=== PATIENT | male | born 1955 | race Caucasian/White ===

== ENCOUNTER → 2019-02-25 | Outpatient (CLI) | payer OTHER ==
--- NOTE | 2019-02-25 12:13 | CT ---
EXAMINATION TYPE: CT lumbar spine wo con DATE OF EXAM: 02/25/2019 11:46 AM COMPARISON: 10/18/2010 HISTORY: Low back pain CT DLP: 1144 mGycm Automated exposure control for dose reduction was used. Unenhanced CT of the lumbar spine was performed. Bone and soft tissue window settings are submitted as well as coronal and sagittal reconstructions. There is disc space calcification T11-T12 which is included on the sagittal images only. There is multihypertrophic spurring anteriorly most marked at L4-L5. Multilevel mild degenerative dis c disease noted. Atherosclerotic change of the aorta is seen without evidence of aneurysm. L1-L2: Normal disc space height. No disc herniation protrusion or central stenosis. No facet joint arthropathy. No evidence for foraminal encroachment. L2-L3: Normal disc space height. No disc herniation protrusion or central stenosis. No facet joint arthropathy. No evidence for foraminal encroachment. L3-L4: There is diffuse disc bulging and hypertrophic change and ligamentum flavum facets. There is t o be mass effect upon the thecal sac. Mild bilateral foraminal encroachment mild canal stenosis. L4-L5: A diffuse broad-based disc protrusion with hypertrophic change of the facets and ligamentum fl avum. Diminutive spinal canal contributes to [id number] canal stenosis and mild bilateral lacey inal encroachment. L5-S1: Facet arthropathy but no obvious disc herniation. Neural foramina remain patent. Mild broad-ba sed central disc bulging but no discrete canal stenosis. Findings similar to the prior exam. IMPRESSION: 1. 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 Mild degenerative disc disease l evels L3-S1. 2. Disc bulging L3-L4 and L4-L5 with hypertrophic changes result in canal stenosis and bilateral fora albina encroachment as discussed above. Findings similar to the prior exam. Recommend MRI follow-up.
--- NOTE | 2019-02-25 13:30 | CT ---
EXAMINATION TYPE: CT brain phoebe wo con DATE OF EXAM: 02/25/2019 COMPARISON: 04/25/2010 HISTORY: 64-year-old male HORN, history of brain aneurysm, neck pain CT DLP: 1564.5 mGycm Automated exposure control for dose reduction was used. Technique: Examination of the head was done in axial plane without intravenous contrast. Coronal and sagittal reconstructions performed. CT of the cervical spine was obtained in axial plane without intravenous injection of contrast mater ial. Coronal and sagittal reformatted images were obtained from the axial views for evaluation of f ractures, spinal alignment and canal. FINDINGS: Head: Anterior left frontal approach [employer] shunt catheter with tip in the anterior aspect of the right lateral ventricle. Mild ventricular prominence is unchanged from 2009. Patchy encephalomalacia in the anterior bifrontal regions also unchanged from 2010. Partially empty s [place]. No evidence for acute intracranial hemorrhage, acute ischemic change, mass, mass effect, midline shif t, or extra-axial fluid collection. No extra-axial fluid collection. No effacement of basal subarachn oid cisterns. Singleton-white matter differentiation is maintained. Embolization material along the anterior midline falx, stable from 2009. 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 Moderat e mucosal thickening anterior ethmoid air cells. Mastoid air cells are well pneumatized. Orbits and g lobes are intact. However, there is prominent CSF along the optic nerve sheath complexes, left greate r than right. This seems to have been present back in 2009 as well. CERVICAL SPINE: Emphysematous change in the visualized upper lungs. No craniocervical junction abnormality, predental space widening, or prevertebral soft tissue swellin g. Hypertrophic facet arthropathy throughout. Alignment is maintained. No acute fracture of the cervical spine. Variable mild bilateral neuroforaminal stenoses. Sagittal and coronal reformatted images confirm above findings. COMBINED IMPRESSION: HEAD: 1. Stable left-sided [employer] shunt catheter with tip in the anterior aspect of the right lateral ventricle . Stable patchy bifrontal encephalomalacia. Stable mild ventricular prominence. No acute intracranial abnormality seen. 2. Prominent CSF fluid along the bilateral optic nerve sheath complexes. This seems to have been pres ent to some extent back in 2009 suggesting chronic change. This can also be seen in setting of increa sed intracranial pressures. Correlate with funduscopic exam to exclude any papillary edema. 3. Severe chronic left maxillary sinus disease and additional scattered chronic ethmoid sinusitis. CERVICAL SPINE: 1. Mild to moderate multilevel spondylotic change. No acute fracture or malalignment.
--- NOTE | 2019-02-25 14:22 | CT ---
EXAMINATION TYPE: CT angio head DATE OF EXAM: 02/25/2019 COMPARISON: Correlation CT brain same day HISTORY: 64-year-old male HORN, history of brain aneurysm, neck pain TECHNIQUE: Contiguous axial scanning of the head performed with IV Contrast, patient injected with 10 0 mL of Isovue 370. Coronal/sagittal MIP reconstructions performed. 3-D reconstructions generated on a dedicated independent workstation. CT DLP: 976.7 mGycm Automated exposure control for dose reduction was used. FINDINGS: The vertebral, basilar, and internal carotid arteries are patent. Some embolization coils along the junction of the A3 and A4 branches of the anterior cerebral artery. Known anterior approach left [employer] shunt catheter. No significant arterial stenosis. There is a 3 mm saccular aneurysm at the left MCA bifurcation projecting superiorly. No other aneurys mal change seen. IMPRESSION: 1. SOME EMBOLIZATION MATERIAL ALONG THE 8 3/8 FOR JUNCTION OF THE ANTERIOR CEREBRAL ARTERY. 2. 3 MM SACCULAR ANEURYSM AT THE LEFT MCA BIFURCATION PROJECTING SUPERIORLY. 3. NO ADDITIONAL ANEURYSMAL CHANGE. NO LARGE VESSEL INTRACRANIAL ARTERIAL OCCLUSION.
== END | disposition home or self-care (01) ==
LOC: RADCTMAIN 10:18
PROVIDERS: ATTEND Psychiatry & Neurology Neurology
DX: M51.36 Other intervertebral disc degeneration, lumbar region (principal); M51.86 Other intervertebral disc disorders, lumbar region; M48.061 Spinal stenosis, lumbar region without neurogenic claudication; M54.2 Cervicalgia; I67.1 Cerebral aneurysm, nonruptured; R51 Headache
CPT/HCPCS: 72125; 72131; 70496; 70450; Q9967

== ENCOUNTER 2021-04-27 12:31 | Inpatient (IN) | payer MEDICARE, OTHER ==
[~2021-04-27 12:31] MED LIST: ETOMIDATE 2 MG/ML 10 ML VIAL ONE; PROPOFOL 10 MG/ML 20 ML VIAL IV ONE; SUCCINYLCHOLINE CHLORIDE VIAL 200 MG/10 ML VIAL IV ONE
[2021-04-27] MEDS ORDERED: DEXAMETHASONE SOD PHOSPHATE 10 MG/ML 1 ML VIAL IV STA (14:19)
[2021-04-27] MEDS ORDERED: SODIUM CHLORIDE 0.9% 500 ML 500 ML IV ONE (14:19)
--- NOTE | 2021-04-27 14:20 | ED ---
General Adult HPI - General Chief complaint: Shortness of Breath Stated complaint: TAMMY Time Seen by Provider: 04/27/21 13:09 Source: patient, RN notes reviewed, old records reviewed Mode of arrival: wheelchair Limitations: no limitations - History of Present Illness Initial comments: 66-year-old male presenting for evaluation of cough, dyspnea, and nausea vomiting. He's had a poor appetite. He is not currently vaccinated against coronavirus. He is uncertain if he has come in contact with coronavirus. He also reports some constipation. No significant abdominal pain. No measured fever. He has had myalgias. - Related Data Home Medications Medication Instructions Recorded Confirmed No Known Home Medications 04/27/21 04/27/21 Allergies Allergy/AdvReac Type Severity Reaction Status Date / Time No Known Allergies Allergy Verified 04/27/21 15:12 Review of Systems ROS Statement: Those systems with pertinent positive or pertinent negative responses have been documented in the HPI. ROS Other: All systems not noted in ROS Statement are negative. Past Medical History History of Any Multi-Drug Resistant Organisms: None Reported Additional Past Surgical History / Comment(s): 1996 brain aneurysm repair Past Psychological History: No Psychological Hx Reported Smoking Status: Current every day smoker Past Alcohol Use History: Occasional Past Drug Use History: None Reported General Exam Limitations: no limitations General appearance: alert, in no apparent distress Head exam: Present: atraumatic, normocephalic Eye exam: Present: normal appearance, PERRL ENT exam: Present: mucous membranes dry Neck exam: Present: normal inspection. Absent: tenderness, meningismus Respiratory exam: Present: rhonchi, decreased breath sounds. Absent: respirat ory distress, wheezes Cardiovascular Exam: Present: regular rate, normal rhythm GI/Abdominal exam: Present: soft. Absent: distended, tenderness Extremities exam: Present: normal inspection, normal capillary refill. Absent: pedal edema, calf tenderness Neurological exam: Present: alert, oriented X3, CN II-XII intact. Absent: motor sensory deficit Psychiatric exam: Present: normal affect, normal mood Skin exam: Present: warm, dry, intact. Absent: cyanosis, diaphoretic Course Vital Signs 04/27/21 04/27/21 13:01 15:08 Temperature 97.8 F Pulse Rate 92 Respiratory 22 Rate Blood Pressure 134/87 O2 Sat by Pulse 85 L 92 L Oximetry EKG Findings - EKG Comments: EKG Findings:: EKG: Normal sinus rhythm, left axis, rate of 91, SD interval 194, QRS duration 84, QTC 462, no ST segment elevation. Medical Decision Making - Medical Decision Making 66-year-old male presenting with suspicion for coronavirus. Hypoxia, nausea vomiting. Patient does test positive for coronavirus. He is on day 7 currently. He does not need for monoclonal antibodies as he is hypoxic. Chest x-ray shows atypical pneumonia. He has a normal CBC. He's gotten acute renal failure with a creatinine of 1.8. He is given IV fluids and IV steroids. He will be admitted to Dr. Dimas with pulmonology on consultation. - Lab Data Result diagrams: 04/27/21 14:21 04/27/21 14:21 Lab Results 04/27/21 04/27/21 12 Range/Units 13:55 14:21 14:21 WBC 6.8 (3.8-10.6) k/uL RBC 5.07 (4.30-5.90) m/uL Hgb 16.2 (13.0-17.5) gm/dL Hct 46.1 (39.0-53.0) % MCV 90.9 (80.0-100.0) fL MCH 32.0 (25.0-35.0) pg MCHC 35.2 (31.0-37.0) g/dL RDW 13.0 (11.5-15.5) % Plt Count 281 (150-450) k/uL MPV 9.1 Neutrophils % 80 % Lymphocytes % 9 % Monocytes % 7 % Eosinophils % 0 % Basophils % 1 % Neutrophils # 5.5 (1.3-7.7) k/uL Lymphocytes # 0.6 L (1.0-4.8) k/uL Monocytes # 0.5 (0-1.0) k/uL Eosinophils # 0.0 (0-0.7) k/uL Basophils # 0.0 (0-0.2) k/uL PT 10.8 (9.0-12.0) sec INR 1.0 (<1.2) APTT 23.6 (22.0-30.0) sec Sodium (137-145) mmol/L Potassium (3.5-5.1) mmol/L Chloride (98-107) mmol/L Carbon Dioxide (22-30) mmol/L Anion Gap mmol/L BUN (9-20) mg/dL Creatinine (0.66-1.25) mg/dL Est GFR (CKD-EPI)AfAm (>60 ml/min/1.73 sqM) Est GFR (CKD-EPI)NonAf (>60 ml/min/1.73 sqM) Glucose (74-99) mg/dL Plasma Lactic Acid Koffi (0.7-2.0) mmol/L Calcium (8.4-10.2) mg/dL Total Bilirubin (0.2-1.3) mg/dL AST (17-59) U/L ALT (4-49) U/L Alkaline Phosphatase (38-126) U/L Troponin I (0.000-0.034) ng/mL NT-Pro-B Natriuret Pep pg/mL Total Protein (6.3-8.2) g/dL Albumin (3.5-5.0) g/dL Coronavirus (PCR) Detected A (Not Detectd) 04/27/21 04/27/21 04/27/21 Range/Units 14:21 14:21 14:21 WBC (3.8-10.6) k/uL RBC (4.30-5.90) m/uL Hgb (13.0-17.5) gm/dL Hct (39.0-53.0) % MCV (80.0-100.0) fL MCH (25.0-35.0) pg MCHC (31.0-37.0) g/dL RDW (11.5-15.5) % Plt Count (150-450) k/uL MPV Neutrophils % % Lymphocytes % % Monocytes % % Eosinophils % % Basophils % % Neutrophils # (1.3-7.7) k/uL Lymphocytes # (1.0-4.8) k/uL Monocytes # (0-1.0) k/uL Eosinophils # (0-0.7) k/uL Basophils # (0-0.2) k/uL PT (9.0-12.0) sec INR (<1.2) APTT (22.0-30.0) sec Sodium 133 L (137-145) mmol/L Potassium 3.6 (3.5-5.1) mmol/L Chloride 100 (98-107) mmol/L Carbon Dioxide 21 L (22-30) mmol/L Anion Gap 12 mmol/L BUN 56 H (9-20) mg/dL Creatinine 1.81 H (0.66-1.25) mg/dL Est GFR (CKD-EPI)AfAm 44 (>60 ml/min/1.73 sqM) Est GFR (CKD-EPI)NonAf 38 (>60 ml/min/1.73 sqM) Glucose 108 H (74-99) mg/dL Plasma Lactic Acid Koffi 1.8 (0.7-2.0) mmol/L Calcium 8.6 (8.4-10.2) mg/dL Total Bilirubin 0.7 (0.2-1.3) mg/dL AST 129 H (17-59) U/L ALT 62 H (4-49) U/L Alkaline Phosphatase 101 (38-126) U/L Troponin I <0.012 (0.000-0.034) ng/mL NT-Pro-B Natriuret Pep pg/mL Total Protein 8.6 H (6.3-8.2) g/dL Albumin 3.9 (3.5-5.0) g/dL Coronavirus (PCR) (Not Detectd) 04/27/21 Range/Units 14:21 WBC (3.8-10.6) k/uL RBC (4.30-5.90) m/uL Hgb (13.0-17.5) gm/dL Hct (39.0-53.0) % MCV (80.0-100.0) fL MCH (25.0-35.0) pg MCHC (31.0-37.0) g/dL RDW (11.5-15.5) % Plt Count (150-450) k/uL MPV Neutrophils % % Lymphocytes % % Monocytes % % Eosinophils % % Basophils % % Neutrophils # (1.3-7.7) k/uL Lymphocytes # (1.0-4.8) k/uL Monocytes # (0-1.0) k/uL Eosinophils # (0-0.7) k/uL Basophils # (0-0.2) k/uL PT (9.0-12.0) sec INR (<1.2) APTT (22.0-30.0) sec Sodium (137-145) mmol/L Potassium (3.5-5.1) mmol/L Chloride (98-107) mmol/L Carbon Dioxide (22-30) mmol/L Anion Gap mmol/L BUN (9-20) mg/dL Creatinine (0.66-1.25) mg/dL Est GFR (CKD-EPI)AfAm (>60 ml/min/1.73 sqM) Est GFR (CKD-EPI)NonAf (>60 ml/min/1.73 sqM) Glucose (74-99) mg/dL Plasma Lactic Acid Koffi (0.7-2.0) mmol/L Calcium (8.4-10.2) mg/dL Total Bilirubin (0.2-1.3) mg/dL AST (17-59) U/L ALT (4-49) U/L Alkaline Phosphatase (38-126) U/L Troponin I (0.000-0.034) ng/mL NT-Pro-B Natriuret Pep 208 pg/mL Total Protein (6.3-8.2) g/dL Albumin (3.5-5.0) g/dL Coronavirus (PCR) (Not Detectd) Disposition Clinical Impression: COVID-19, Hypoxia, LILY (acute kidney injury) Disposition: ADMITTED IP TO THIS [facility] Condition: Stable Is patient prescribed a controlled substance at d/c from ED?: No Referrals: Dmitriy David MD [Primary Care Provider] - 1-2 days Decision to Admit Reason: Admit from EC Decision Date: 04/27/21 Decision Time: 15:44
--- NOTE | 2021-04-27 14:39 | XR ---
EXAMINATION TYPE: XR chest 1V portable DATE OF EXAM: 04/27/2021 COMPARISON: 04/19/2012 INDICATION: Difficulty in breathing, Covid TECHNIQUE: Single frontal view of the chest is obtained. FINDINGS: The heart size is upper limits of normal. The pulmonary vasculature is diffuse mild increased lung markings are present bilaterally. Findings a re nonspecific but can be compatible with atypical pneumonia. Previous right lower lobe infiltrate ma y have some mild improvement.. IMPRESSION: 1. Improving right lower lobe pneumonia. 2. Diffuse increased lung markings are developing bilaterally. Correlate for atypical pneumonia.
[2021-04-27 14:41] LABS: Basophils % (A) 1 %; Eosinophils % (A) 0 %; HCT 46.1 % (39.0-53.0); HGB 16.2 gm/dL (13.0-17.5); Lymphocytes # (A) 0.6 k/uL (1.0-4.8); Lymphocytes % (A) 9 %; MCHC 35.2 g/dL (31.0-37.0); MCV 90.9 fL (80.0-100.0); Mean Platelet Volume 9.1; Monocytes # (A) 0.5 k/uL (0-1.0); Monocytes % (A) 7 %; Neutrophils # (A) 5.5 k/uL (1.3-7.7); Neutrophils % (A) 80 %; Platelet Count 281 k/uL (150-450); RBC 5.07 m/uL (4.30-5.90); WBC 6.8 k/uL (3.8-10.6)
[2021-04-27] MEDS ORDERED: ONDANSETRON 4 MG/2 ML VIAL IVP STA (14:48)
[2021-04-27 14:54] LABS: Albumin 3.9 g/dL (3.5-5.0); Calcium 8.6 mg/dL (8.4-10.2); Potassium 3.6 mmol/L (3.5-5.1); Total Bilirubin 0.7 mg/dL (0.2-1.3); Total Protein 8.6 g/dL (6.3-8.2)
[2021-04-27 15:12] LABS: Partial Thromboplastin Time 23.6 sec (22.0-30.0); Prothrombin Time 10.8 sec (9.0-12.0)
[2021-04-27] MEDS ORDERED: ACETAMINOPHEN TAB 325 MG TAB PO PRN (15:44)
[2021-04-27] MEDS ORDERED: NALOXONE 0.4 MG/ML 1 ML VIAL IV PRN (15:44)
[2021-04-27] MEDS ORDERED: ONDANSETRON 4 MG/2 ML VIAL IVP PRN (15:44)
[2021-04-27] MEDS: SODIUM CHLORIDE 0.9% 1,000 ML IV SCH (17:31)
[2021-04-27 17:39] LABS: C Reactive Protein 4.9 mg/dL (<1.0)
--- NOTE | 2021-04-27 17:50 | P.CNPUL ---
History of Present Illness Consult date: 04/27/21 Reason for consult: dyspnea, hypoxemia, pneumonia History of present illness: 66-year-old male patient presented to the hospital because of increased cough and shortness of breath in addition to some nausea and emesis. The patient was quite dehydrated. His appetite was poor. He was confirmed having a COVID 19 infection. The patient has been symptomatic over almost 2 weeks. This patient is not vaccinated. No reported fever. He has generalized weakness and myalgias. In the burst department, the patient was afebrile. Pulse ox initial ly was 85%. Currently he is on oxygen at 4 L per minute nasal cannula. The chest x-ray shows diffuse increased interstitial markings bilaterally consistent with pneumonia. The pulmonary vasculature is quite abundant. The patient also has a right lower lobe pulmonary infiltrate in the past that has improved on this current evaluation. A BUN of 56 with a creatinine of 1.8 consistent with an acute kidney injury, sodium level was 133, there was evidence of mild transaminitis with an AST of 129, ALT of 62, Review of Systems Constitutional: Reports as per HPI, Reports weakness Eyes: denies as per HPI, denies blurred vision, denies bulging eye, denies decreased vision, denies diplopia, denies discharge, denies dry eye, denies irritation, denies itching, denies pain, denies photophobia, denies loss of peripheral vision, denies loss of vision, denies tunnel vision/blind spots Ears: deny: decreased hearing, ear discharge, earache, tinnitus Ears, nose, mouth and throat: Reports as per HPI Cardiovascular: Reports dyspnea on exertion Respiratory: Reports cough, Reports dyspnea Gastrointestinal: Reports nausea, Reports vomiting Genitourinary: Reports as per HPI Musculoskeletal: Reports as per HPI Musculoskeletal: absent: ankle pain, ankle stiffness, ankle swelling, as per HPI, elbow pain, elbow stiffness, elbow swelling, foot pain, foot stiffness, foot swelling, hand pain, hand stiffness, hand swelling, hip pain, hip s tiffness, hip swelling, knee pain, knee stiffness, knee swelling, shoulder pain, shoulder stiffness, shoulder swelling, wrist pain, wrist stiffness, wrist swelling Integumentary: Reports as per HPI Neurological: Reports as per HPI Psychiatric: Reports as per HPI Endocrine: Reports as per HPI Hematologic/Lymphatic: Reports as per HPI Allergic/Immunologic: Reports as per HPI Past Medical History History of Any Multi-Drug Resistant Organisms: None Reported Additional Past Surgical History / Comment(s): 1996 brain aneurysm repair Past Psychological History: No Psychological Hx Reported Smoking Status: Current every day smoker Past Alcohol Use History: Occasional Past Drug Use History: None Reported Medications and Allergies Home Medications Medication Instructions Recorded Confirmed Type No Known Home Medications 04/27/21 04/27/21 History Allergies Allergy/AdvReac Type Severity Reaction Status Date / Time No Known Allergies Allergy Verified 04/27/21 15:12 Physical Exam Vitals: Vital Signs Temp Pulse Resp BP Pulse Ox 04/27/21 15:08 92 L 04/27/21 13:01 97.8 F 92 22 134/87 85 L Intake and Output 04/27/21 04/27/21 04/27/21 06:59 14:59 22:59 Other: Weight 77.111 kg General appearance: alert, in no apparent distress, breathing is nonlabored the patient is currently on 4 L about 2 by nasal cannula with a pulse of 92%, earlier, room air oxygen, the pulse ox was 83%. Head exam: Present: atraumatic, normocephalic Eye exam: Present: normal appearance, PERRL ENT exam: Present: mucous membranes dry Neck exam: Present: normal inspection. Absent: tenderness, meningismus Respiratory exam: Present: rhonchi, decreased breath sounds. And the patient has bilateral lower lobe pulmonary crackles. Cardiovascular Exam: Present: regular rate, normal rhythm GI/Abdominal exam: Present: soft. Absent: distended, tenderness Extremities exam: Present: normal inspection, normal capillary refill. Absent: pedal edema, calf tenderness Neurological exam: Present: alert, oriented X3, CN II-XII intact. Absent: motor sensory deficit Psychiatric exam: Present: normal affect, normal mood Skin exam: Present: warm, dry, intact. Absent: cyanosis, diaphoretic Results - Laboratory Findings CBC and BMP: 04/27/21 14:21 04/27/21 14:21 PT/INR, D-dimer PT 10.8 sec (9.0-12.0) 04/27/21 14:21 INR 1.0 (<1.2) 04/27/21 14:21 Abnormal lab findings: Abnormal Labs 04/27/21 04/27/21 04/27/21 13:55 14:21 14:21 Lymphocytes # 0.6 L Sodium 133 L Carbon Dioxide 21 L BUN 56 H Creatinine 1.81 H Glucose 108 H AST 129 H ALT 62 H Total Protein 8.6 H Coronavirus (PCR) Detected A - Diagnostic Findings Chest x-ray: image reviewed Assessment and Plan Plan: 1 acute COVID 19 related pneumonia. This is a nonvaccinated individual. The patient presented with increased shortness of breath and cough and the patient was found to be quite hypoxic confirmed to be positive for COVID 19 2 acute hypoxic respiratory failure secondary to well currently on 40 to about 2 by nasal cannula 3 acute kidney injury probably rates to intravascular volume depletion/dehydration, creatinine is at 1.8 4 mild transaminitis secondary to COVID 19 infection Plan Titrate FiO2 to maintain saturation above 90% currently on 4 L of oxygen nasal cannula Check inflammatory markers Check d-dimer is 1.04 Continue Decadron Outside the window for Remdesivir treatment Put the patient on Lovenox 40 mg subcu for DVT prophylaxis Normal saline at the rate of 100 mL an hour Monitor renal function Multivitamins including vitamin C vitamin D and zinc We'll continue to follow.
--- NOTE | 2021-04-27 22:31 | P.HPIM ---
History of Present Illness H&P Date: 04/27/21 Chief Complaint: Generalized weakness. Patient is a 66-year-old male with a known history of ongoing nicotine addiction presents to ER with complaints of generalized weakness, nausea vomiting and shortness of. Patient states that he has been having poor appetite and symptoms for the past 2 weeks. Patient felt very weak. Pressure points were COVID-19 infection. Patient is not vaccinated. Denies any complaints of fever or chills. No complaints of chest pain. Minimal cough without any sputum production. On admission pulse ox 85% on room air. Chest x-ray showed improving right lower lobe pneumonia. Diffuse increased lung markings are developing bilaterally. Correlate for atypical pneumonia. EKG showed normal sinus rhythm. Laboratory showed lymphocyte 0.6 WBC 6.8 hemoglobin 16.2 and platelets 281 and D-dimer level is 1.04 Sodium 133 potassium 3.6 chloride 100 bicarb is 21 BUN 56 and creatinine 1.81 Blood sugar is 108 AST 129 ALT 62 alk phos 101 LDH 05/30/2004 CRP 4.9 and proBNP 208 Coronavirus PCR detected. Review of Systems Constitutional: Patient denies any fever or chills . Patient does complain of generalized weakness and fatigue. Abdomen: Shortness of breath. Patient does have nausea vomiting. No abdominal pain. No diarrhea. . Cardiovascular: Patient denies any chest pain +short of breath no palpitations. Respiratory: Complains of cough without any sputum production. shortness of breath Neurologic: Patient denied any numbness or tingling headache. Musculoskeletal: Patient denies any complaints of joint swelling or deformity. Skin: Negative Psychiatric: Negative Endocrine: No heat or cold intolerance. No recent weight gain. Genitourinary: No dysuria or hematuria. All other 14 point ROS negative except the above Past Medical History History of Any Multi-Drug Resistant Organisms: None Reported Additional Past Surgical History / Comment(s): 1996 brain aneurysm repair Past Psychological History: No Psychological Hx Reported Smoking Status: Current every day smoker Past Alcohol Use History: Occasional Past Drug Use History: None Reported Medications and Allergies Home Medications Medication Instructions Recorded Confirmed Type No Known Home Medications 04/27/21 04/27/21 History Allergies Allergy/AdvReac Type Severity Reaction Status Date / Time No Known Allergies Allergy Verified 04/27/21 15:12 Physical Exam Vitals: Vital Signs Temp Pulse Pulse Resp BP BP Pulse Ox 04/27/21 20:00 85 18 134/77 90 L 04/27/21 18:41 77 20 129/82 97 04/27/21 16:30 97.4 F L 85 18 132/65 95 04/27/21 15:08 92 L 04/27/21 13:01 97.8 F 92 22 134/87 85 L Intake and Output 04/27/21 04/27/21 04/27/21 06:59 14:59 22:59 Other: Weight 77.111 kg 77.111 kg PHYSICAL EXAMINATION: Patient is lying in the bed comfortably, no acute distress, awake alert and oriented. appears weak. HEENT: Normocephalic. Neck is supple. Pupils reactive. Nostrils clear. Oral cavity is moist. Neck reveals no JVD, carotid bruits, or thyromegaly. CHEST EXAMINATION: Trachea is central. Symmetrical expansion. Bilateral coarse sounds. Minimal expiratory wheezing. Nonlabored breathing.. CARDIAC: Normal S1, S2 with no gallops. No murmurs ABDOMEN: Soft. Bowel sounds normal. No organomegaly. No abdominal bruits. Extremities: reveal no edema. No clubbing or cyanosis Neurologically awake, alert, oriented x3 with well-coordinated movements. No focal deficits noted Skin: No rash or skin lesions. Psychiatric: Cooperative. Nonsuicidal Musculoskeletal: No joint swelling or deformity. Normal range of motion. Results CBC & Chem 7: 04/27/21 14:21 04/27/21 14:21 Labs: Abnormal Lab Results - Last 24 Hours (Table) 04/27/21 04/27/21 04/27/21 Range/Units 13:55 14:21 14:21 Lymphocytes # 0.6 L (1.0-4.8) k/uL D-Dimer (<0.60) mg/L FEU Sodium 133 L (137-145) mmol/L Carbon Dioxide 21 L (22-30) mmol/L BUN 56 H (9-20) mg/dL Creatinine 1.81 H (0.66-1.25) mg/dL Glucose 108 H (74-99) mg/dL AST 129 H (17-59) U/L ALT 62 H (4-49) U/L Lactate Dehydrogenase (313-618) U/L C-Reactive Protein (<1.0) mg/dL Total Protein 8.6 H (6.3-8.2) g/dL Coronavirus (PCR) Detected A (Not Detectd) 04/27/21 04/27/21 Range/Units 16:50 16:50 Lymphocytes # (1.0-4.8) k/uL D-Dimer 1.04 H (<0.60) mg/L FEU Sodium (137-145) mmol/L Carbon Dioxide (22-30) mmol/L BUN (9-20) mg/dL Creatinine (0.66-1.25) mg/dL Glucose (74-99) mg/dL AST (17-59) U/L ALT (4-49) U/L Lactate Dehydrogenase 1505 H (313-618) U/L C-Reactive Protein 4.9 H (<1.0) mg/dL Total Protein (6.3-8.2) g/dL Coronavirus (PCR) (Not Detectd) Thrombosis Risk Factor Assmnt - DVT/VTE Prophylaxis DVT/VTE Prophylaxis: Pharmacologic Prophylaxis ordered - Choose All That Apply Any of the Below Risk Factors Present?: No Each Risk Factor Represents 2 Points: Age 61-74 years Other congenital or acquired thrombophilia - If yes, enter type in comment: No Thrombosis Risk Factor Assessment Total Risk Factor Score: 2 Thrombosis Risk Factor Assessment Level: Low Risk Assessment and Plan Assessment: Acute hypoxic respiratory failure secondary to COVID-19 infection Generalized weakness, nausea and vomiting secondary to COVID-19 infection COVID-19 pneumonia Elevated inflammatory markers Hypovolemic hyponatremia Acute kidney injury likely prerenal. Ongoing nicotine addiction DVT prophylaxis with Lovenox subcu Plan: Patient will be continued on oxygen supplementation and continue with IV hydration. We will continue with dexamethasone 6 mg IV push daily and multivitamins and Lovenox subcu. Symptomatic management for nausea and vomiting. Pulmonary was consulted. Continue to follow closely. Time with Patient: Greater than 30
[2021-04-27] MEDS: FAMOTIDINE 20 MG/2 ML VIAL IV SCH (23:02)
[2021-04-28] MEDS: SODIUM CHLORIDE 0.9% 1,000 ML IV SCH ×3 (01:51→21:04)
[2021-04-28] MEDS: ENOXAPARIN 40 MG/0.4 ML SYRINGE SQ SCH (09:55)
[2021-04-28] MEDS: DEXAMETHASONE SOD PHOSPHATE 10 MG/ML 1 ML VIAL IVP SCH (09:55)
[2021-04-28] MEDS: ASCORBIC ACID 500 MG TAB PO SCH (09:56)
[2021-04-28] MEDS: FAMOTIDINE 20 MG/2 ML VIAL IV SCH ×2 (09:56→19:57)
[2021-04-28] MEDS: ZINC SULFATE 220 MG CAP PO SCH (09:56)
[2021-04-28] MEDS: CHOLECALCIFEROL 25 MCG (1000 IU) TABLET PO SCH (09:56)
[2021-04-28 12:03] LABS: African American GFR (CKD) 93.1 (60.0-200.0); Anion Gap 14.2 mmol/L (10.00-18.00); BUN/Creat Ratio 28.25 Ratio (12.00-20.00); Blood Urea Nitrogen 27.6 mg/dL (9.0-27.0); C Reactive Protein 5.3 mg/dL (0.00-0.80); Calcium 8.1 mg/dL (8.7-10.3); Carbon Dioxide 16.5 mmol/L (20.0-27.5); Non-African American GFR(CKD) 80.3 (60.0-200.0); Potassium 4.2 mmol/L (3.5-5.5)
[2021-04-28 12:39] LABS: Basophils # (A) 0.01 X 10*3/uL (0.00-0.10); Basophils % (A) 0.2 %; Eosinophils # (A) 0 X 10*3/uL (0.04-0.35); Eosinophils % (A) 0 %; HCT 42.5 % (39.6-50.0); HGB 14.1 g/dL (13.0-17.0); Lymphocytes # (A) 0.47 X 10*3/uL (0.90-5.00); Lymphocytes % (A) 7.1 %; MCH 31.2 pg (27.0-32.0); MCHC 33.2 g/dL (32.0-37.0); Mean Platelet Volume 12.2 fL (9.5-12.2); Monocytes % (A) 7.5 %; Neutrophils # (A) 5.64 X 10*3/uL (1.80-7.70); Neutrophils % (A) 84.7 %; Platelet Count 252 X 10*3/uL (140-440); RBC 4.52 X 10*6/uL (4.40-5.60); RDW 13.5 % (11.5-14.5); WBC 6.65 X 10*3/uL (4.50-10.00)
--- NOTE | 2021-04-28 15:42 | P.PN ---
Subjective Progress Note Date: 04/28/21 66-year-old male patient presented to the hospital because of increased cough and shortness of breath in addition to some nausea and emesis. The patient was quite dehydrated. His appetite was poor. He was confirmed having a COVID 19 infection. The patient has been symptomatic over almost 2 weeks. This patient is not vaccinated. No reported fever. He has generalized weakness and myalgias. In the burst department, the patient was afebrile. Pulse ox initially was 85%. Currently he is on oxygen at 4 L per minute nasal cannula. The chest x-ray shows diffuse increased interstitial markings bilaterally consistent with pneumonia. The pulmonary vasculature is quite abundant. The patient also has a right lower lobe pulmonary infiltrate in the past that has improved on this current evaluation. A BUN of 56 with a creatinine of 1.8 consistent with an acute kidney injury, sodium level was 133, there was evidence of mild transaminitis with an AST of 129, ALT of 62, The patient is seen today 04/28/2021 in follow-up on the regular medical floor. He is currently resting in bed. Laying flat. No worsening shortness of breath, cough or congestion. His requiring 6 L high flow nasal cannula to maintain O2 saturations in the mid 90s. He is afebrile. Hemodynamically stable. White count 6.6. Hemoglobin 14.1. Lymphocytes 0.47. D-dimer 1.36. Sodium 135. Potassium 4.2. Creatinine 1.0. Glucose 170. LDH 546. C-reactive protein 5.3. Pro-calcitonin 0.29. He is continued on Lovenox, Decadron, vitamin supplements. Objective - Vital Signs Vital signs: Vital Signs Temp 97.8 F 04/28/21 14:00 Pulse 81 04/28/21 14:00 Resp 18 04/28/21 14:00 BP 122/55 04/28/21 14:00 Pulse Ox 95 04/28/21 14:00 Intake & Output 04/27/21 04/28/21 04/28/21 18:59 06:59 18:59 Output Total 1000 Balance -1000 Weight 77.111 kg Output: Urine 1000 Other: Voiding Method Urinal # Bowel Movements 0 - Exam General appearance: Pleasant 66-year-old gentleman, alert, in no apparent distress, breathing is nonlabored the patient is currently on 6 L nasal cannula Head exam: Present: atraumatic, normocephalic Eye exam: Present: normal appearance, PERRL ENT exam: Present: mucous membranes dry Neck exam: Present: normal inspection. Absent: tenderness, meningismus Respiratory exam: Present: Bibasilar crackles. Cardiovascular Exam: Present: regular rate, normal rhythm GI/Abdominal exam: Present: soft. Absent: distended, tenderness Extremities exam: Present: normal inspection, normal capillary refill. Absent: pedal edema, calf tenderness Neurological exam: Present: alert, oriented X3, CN II-XII intact. Absent: motor sensory deficit Psychiatric exam: Present: normal affect, normal mood Skin exam: Present: warm, dry, intact. Absent: cyanosis, diaphoretic - Labs CBC & Chem 7: 04/28/21 08:46 04/28/21 08:46 Labs: Abnormal Lab Results - Last 24 Hours (Table) 04/27/21 04/27/21 04/27/21 Range/Units 16:50 16:50 16:50 Lymphocytes # (0.90-5.00) X 10*3/uL Eosinophils # (0.04-0.35) X 10*3/uL D-Dimer 1.04 H (<0.60) mg/L FEU Carbon Dioxide (20.0-27.5) mmol/L BUN (9.0-27.0) mg/dL BUN/Creatinine Ratio (12.00-20.00) Ratio Glucose (70-110) mg/dL Calcium (8.7-10.3) mg/dL Lactate Dehydrogenase 1505 H (313-618) U/L C-Reactive Protein 4.9 H (<1.0) mg/dL Procalcitonin 0.29 H (0.02-0.09) ng/mL 04/28/21 04/28/21 04/28/21 Range/Units 08:46 08:46 08:46 Lymphocytes # 0.47 L (0.90-5.00) X 10*3/uL Eosinophils # 0 L (0.04-0.35) X 10*3/uL D-Dimer 1.36 H (<0.60) mg/L FEU Carbon Dioxide 16.5 L (20.0-27.5) mmol/L BUN 27.6 H (9.0-27.0) mg/dL BUN/Creatinine Ratio 28.25 H (12.00-20.00) Ratio Glucose 170 H (70-110) mg/dL Calcium 8.1 L (8.7-10.3) mg/dL Lactate Dehydrogenase 546 H (313-618) U/L C-Reactive Protein 5.30 H (<1.0) mg/dL Procalcitonin (0.02-0.09) ng/mL Assessment and Plan Assessment: 1 acute COVID 19 related pneumonia. This is a nonvaccinated individual. Outside the window for Remdesivir. Currently on 6 L nasal cannula. 2 acute hypoxic respiratory failure secondary to well currently on 6 liters by nasal cannula 3 acute kidney injury probably rates to intravascular volume depletion/dehydration, improved and creatinine is at 1.0 4 mild transaminitis secondary to COVID 19 infection Plan The patient was seen and evaluated Remains on Lovenox, Decadron, vitamin supplements Titrate the FiO2 as tolerated Follow-up chest x-ray and inflammatory markers in the a.m. We will continue to follow
[2021-04-29] MEDS: BENZONATATE 100 MG CAP PO PRN ×2 (03:38→16:32)
--- NOTE | 2021-04-29 07:08 | XR ---
EXAMINATION TYPE: XR chest 1V portable DATE OF EXAM: 04/29/2021 COMPARISON: 04/27/2021 HISTORY: Covid pneumonia TECHNIQUE: Single frontal view of the chest is obtained. FINDINGS: There are diffuse interstitial and scattered cysts small airspace opacities unchanged comp ared to the prior study. The heart size is normal and the vasculature is not congested. There are no large pleural effusions. There is no pneumothorax. The osseous structures are intact IMPRESSION: No interval change in the diffuse lung infiltrates.
[2021-04-29] MEDS: DEXAMETHASONE SOD PHOSPHATE 10 MG/ML 1 ML VIAL IVP SCH (08:42)
[2021-04-29] MEDS: ASCORBIC ACID 500 MG TAB PO SCH (08:42)
[2021-04-29] MEDS: ZINC SULFATE 220 MG CAP PO SCH (08:42)
[2021-04-29] MEDS: FAMOTIDINE 20 MG/2 ML VIAL IV SCH ×2 (08:42→21:17)
[2021-04-29] MEDS: ENOXAPARIN 40 MG/0.4 ML SYRINGE SQ SCH (08:42)
[2021-04-29] MEDS: CHOLECALCIFEROL 25 MCG (1000 IU) TABLET PO SCH (08:42)
[2021-04-29] MEDS: SODIUM CHLORIDE 0.9% 1,000 ML IV SCH ×2 (08:43→15:28)
[2021-04-29] MEDS ORDERED: SODIUM CHLORIDE 0.65% NASAL SPRAY 44 ML BTL NASAL PRN (09:13)
[2021-04-29 12:44] LABS: African American GFR (CKD) 117.1 (60.0-200.0); Anion Gap 9.8 mmol/L (10.00-18.00); BUN/Creat Ratio 20.76 Ratio (12.00-20.00); Blood Urea Nitrogen 13.6 mg/dL (9.0-27.0); C Reactive Protein 2.2 mg/dL (0.00-0.80); Carbon Dioxide 18.8 mmol/L (20.0-27.5); Non-African American GFR(CKD) 101.1 (60.0-200.0); Potassium 3.6 mmol/L (3.5-5.5)
--- NOTE | 2021-04-29 16:33 | P.PN ---
Subjective Progress Note Date: 04/29/21 66-year-old male patient presented to the hospital because of increased cough and shortness of breath in addition to some nausea and emesis. The patient was quite dehydrated. His appetite was poor. He was confirmed having a COVID 19 infection. The patient has been symptomatic over almost 2 weeks. This patient is not vaccinated. No reported fever. He has generalized weakness and myalgias. In the burst department, the patient was afebrile. Pulse ox initially was 85%. Currently he is on oxygen at 4 L per minute nasal cannula. The chest x-ray shows diffuse increased interstitial markings bilaterally consistent with pneumonia. The pulmonary vasculature is quite abundant. The patient also has a right lower lobe pulmonary infiltrate in the past that has improved on this current evaluation. A BUN of 56 with a creatinine of 1.8 consistent with an acute kidney injury, sodium level was 133, there was evidence of mild transaminitis with an AST of 129, ALT of 62, The patient is seen today 04/28/2021 in follow-up on the regular medical floor. He is currently resting in bed. Laying flat. No worsening shortness of breath, cough or congestion. His requiring 6 L high flow nasal cannula to maintain O2 saturations in the mid 90s. He is afebrile. Hemodynamically stable. White count 6.6. Hemoglobin 14.1. Lymphocytes 0.47. D-dimer 1.36. Sodium 135. Potassium 4.2. Creatinine 1.0. Glucose 170. LDH 546. C-reactive protein 5.3. Pro-calcitonin 0.29. He is continued on Lovenox, Decadron, vitamin supplements. The patient is seen today 04/29/2021 in follow-up on the regular medical floor. He is seen resting comfortably in bed. Awake and alert in no acute distress. He is currently on 7 L high flow nasal cannula to maintain O2 saturations in the low 90s. He's been afebrile. Hemodynamically stable. Chest x-ray reveals diffuse interstitial airspace disease no significant change from previous on 04/27/2021. D-dimer 1.84. Sodium 135. Potassium 3.6. Creatinine 0.7. LDH 46. C-reactive protein 2.20. He is continued on Decadron, Lovenox, vitamin supplements. Objective - Vital Signs Vital signs: Vital Signs Temp 97.9 F 04/29/21 10:45 Pulse 83 04/29/21 14:00 Resp 18 04/29/21 14:00 BP 129/70 04/29/21 14:00 Pulse Ox 94 L 04/29/21 14:00 Intake & Output 04/28/21 04/29/21 04/29/21 18:59 06:59 18:59 Intake Total 221 Output Total 400 825 Balance -400 -604 Intake: Oral 221 Output: Urine 400 825 Other: Voiding Method Urinal Urinal Urinal # Voids 3 # Bowel Movements 0 - Exam General appearance: Pleasant 66-year-old gentleman, alert, in no apparent distress, breathing is nonlabored the patient is currently on 7 L nasal cannula Head exam: Present: atraumatic, normocephalic Eye exam: Present: normal appearance, PERRL ENT exam: Present: mucous membranes dry Neck exam: Present: normal inspection. Absent: tenderness, meningismus Respiratory exam: Present: Bibasilar crackles. Cardiovascular Exam: Present: regular rate, normal rhythm GI/Abdominal exam: Present: soft. Absent: distended, tenderness Extremities exam: Present: normal inspection, normal capillary refill. Absent: pedal edema, calf tenderness Neurological exam: Present: alert, oriented X3, CN II-XII intact. Absent: motor sensory deficit Psychiatric exam: Present: normal affect, normal mood Skin exam: Present: warm, dry, intact. Absent: cyanosis, diaphoretic - Labs CBC & Chem 7: 04/28/21 08:46 04/29/21 07:23 Labs: Abnormal Lab Results - Last 24 Hours (Table) 04/29/21 04/29/21 Range/Units 07:23 07:24 D-Dimer 1.84 H (<0.60) mg/L FEU Carbon Dioxide 18.8 L (20.0-27.5) mmol/L Anion Gap 9.80 L (10.00-18.00) mmol/L BUN/Creatinine Ratio 20.76 H (12.00-20.00) Ratio Glucose 114 H (70-110) mg/dL Calcium 8.0 L (8.7-10.3) mg/dL Lactate Dehydrogenase 486 H (120-246) U/L C-Reactive Protein 2.20 H (0.00-0.80) mg/dL Assessment and Plan Assessment: 1 acute COVID 19 related pneumonia. This is a nonvaccinated individual. Outside the window for Remdesivir. Currently on 7 L nasal cannula. 2 acute hypoxic respiratory failure secondary to well currently on 7 liters by nasal cannula 3 acute kidney injury probably rates to intravascular volume depletion/dehydration, improved and creatinine is at 0.7 4 mild transaminitis secondary to COVID 19 infection Plan The patient was seen and evaluated Remains on Lovenox, Decadron, vitamin supplements Titrate the FiO2 as tolerated Increase his activity as tolerated We will continue to follow
[2021-04-29] MEDS ORDERED: TEMAZEPAM 15 MG CAP PO SCH (22:45)
--- NOTE | 2021-04-29 23:24 | P.PN ---
Subjective Progress Note Date: 04/28/21 Patient is a 66-year-old male with a known history of ongoing nicotine addiction presents to ER with complaints of generalized weakness, nausea vomiting and shortness of. Patient states that he has been having poor appetite and symptoms for the past 2 weeks. Patient felt very weak. Pressure points were COVID-19 infection. Patient is not vaccinated. Denies any complaints of fever or chills. No complaints of chest pain. Minimal cough without any sputum production. On admission pulse ox 85% on room air. Chest x-ray showed improving right lower lobe pneumonia. Diffuse increased lung markings are developing bilaterally. Correlate for atypical pneumonia. EKG showed normal sinus rhythm. Laboratory showed lymphocyte 0.6 WBC 6.8 hemoglobin 16.2 and platelets 281 and D-dimer level is 1.04 Sodium 133 potassium 3.6 chloride 100 bicarb is 21 BUN 56 and creatinine 1.81 Blood sugar is 108 AST 129 ALT 62 alk phos 101 LDH 05/30/2004 CRP 4.9 and proBNP 208 Coronavirus PCR detected. 04/28/2021 Patient is currently resting in the bed. Requiring oxygen at 6 L via nasal cannula. Denies any complaints of chest pain. No fever no chills. No nausea vomiting or abdominal pain or diarrhea. Laboratory data showed WBC 6.6 hemoglobin 14.1 and platelets 252 lymphocytes 0.479 D-dimer level is 1.36 sodium 135 potassium 4.2 BUN 27 creatinine improved to 1.0. LDH 546 and CRP 5.3. Patient is being current IV hydration with normal saline at 100 cc/h. Pulmonary is on board.. Current medications reviewed. Objective - Vital Signs Vital signs: Vital Signs Temp 97.8 F 04/28/21 14:00 Pulse 81 04/28/21 14:00 Resp 18 04/28/21 14:00 BP 122/55 04/28/21 14:00 Pulse Ox 95 04/28/21 14:00 Intake & Output 04/27/21 04/28/21 04/28/21 18:59 06:59 18:59 Output Total 1000 Balance -1000 Weight 77.111 kg Output: Urine 1000 Other: Voiding Method Urinal # Bowel Movements 0 - Exam PHYSICAL EXAMINATION: Patient is lying in the bed comfortably, no acute distress, awake alert and oriented. appears weak. HEENT: Normocephalic. Neck is supple. Pupils reactive. Nostrils clear. Oral cavity is moist. Neck reveals no JVD, carotid bruits, or thyromegaly. CHEST EXAMINATION: Trachea is central. Symmetrical expansion. Bilateral coarse sounds. Minimal expiratory wheezing. Nonlabored breathing.. CARDIAC: Normal S1, S2 with no gallops. No murmurs ABDOMEN: Soft. Bowel sounds normal. No organomegaly. No abdominal bruits. Extremities: reveal no edema. No clubbing or cyanosis Neurologically awake, alert, oriented x3 with well-coordinated movements. No focal deficits noted Skin: No rash or skin lesions. Psychiatric: Cooperative. Nonsuicidal Musculoskeletal: No joint swelling or deformity. Normal range of motion. - Labs CBC & Chem 7: 04/28/21 08:46 04/29/21 07:23 Labs: Abnormal Lab Results - Last 24 Hours (Table) 04/27/21 04/27/21 04/27/21 Range/Units 16:50 16:50 16:50 Lymphocytes # (0.90-5.00) X 10*3/uL Eosinophils # (0.04-0.35) X 10*3/uL D-Dimer 1.04 H (<0.60) mg/L FEU Carbon Dioxide (20.0-27.5) mmol/L BUN (9.0-27.0) mg/dL BUN/Creatinine Ratio (12.00-20.00) Ratio Glucose (70-110) mg/dL Calcium (8.7-10.3) mg/dL Lactate Dehydrogenase 1505 H (313-618) U/L C-Reactive Protein 4.9 H (<1.0) mg/dL Procalcitonin 0.29 H (0.02-0.09) ng/mL 04/28/21 04/28/21 04/28/21 Range/Units 08:46 08:46 08:46 Lymphocytes # 0.47 L (0.90-5.00) X 10*3/uL Eosinophils # 0 L (0.04-0.35) X 10*3/uL D-Dimer 1.36 H (<0.60) mg/L FEU Carbon Dioxide 16.5 L (20.0-27.5) mmol/L BUN 27.6 H (9.0-27.0) mg/dL BUN/Creatinine Ratio 28.25 H (12.00-20.00) Ratio Glucose 170 H (70-110) mg/dL Calcium 8.1 L (8.7-10.3) mg/dL Lactate Dehydrogenase 546 H (313-618) U/L C-Reactive Protein 5.30 H (<1.0) mg/dL Procalcitonin (0.02-0.09) ng/mL Assessment and Plan Assessment: Acute hypoxic respiratory failure secondary to COVID-19 infection Generalized weakness, nausea and vomiting secondary to COVID-19 infection COVID-19 pneumonia Elevated inflammatory markers Hypovolemic hyponatremia Acute kidney injury likely prerenal. improved. Ongoing nicotine addiction DVT prophylaxis with Lovenox subcu Plan: Patient will be continued on oxygen supplementation and continue with IV hydration. We will continue with dexamethasone 6 mg IV push daily and multivitamins and Lovenox subcu. Symptomatic management for nausea and vomiting. Pulmonary was consulted. Continue to follow closely.
[2021-04-29] MEDS ORDERED: FUROSEMIDE 10 MG/ML 2 ML VIAL IV ONE (23:25)
--- NOTE | 2021-04-29 23:27 | P.PN ---
Subjective Progress Note Date: 04/29/21 Principal diagnosis: acute hypoxic respiratory failure secondary to COVID-19 pneumonia Patient is a 66-year-old male with a known history of ongoing nicotine addiction presents to ER with complaints of generalized weakness, nausea vomiting and shortness of. Patient states that he has been having poor appetite and symptoms for the past 2 weeks. Patient felt very weak. Pressure points were COVID-19 infection. Patient is not vaccinated. Denies any complaints of fever or ch ills. No complaints of chest pain. Minimal cough without any sputum production. On admission pulse ox 85% on room air. Chest x-ray showed improving right lower lobe pneumonia. Diffuse increased lung markings are developing bilaterally. Correlate for atypical pneumonia. EKG showed normal sinus rhythm. Laboratory showed lymphocyte 0.6 WBC 6.8 hemoglobin 16.2 and platelets 281 and D-dimer level is 1.04 Sodium 133 potassium 3.6 chloride 100 bicarb is 21 BUN 56 and creatinine 1.81 Blood sugar is 108 AST 129 ALT 62 alk phos 101 LDH 05/30/2004 CRP 4.9 and proBNP 208 Coronavirus PCR detected. 04/28/2021 Patient is currently resting in the bed. Requiring oxygen at 6 L via nasal cannula. Denies any complaints of chest pain. No fever no chills. No nausea vomiting or abdominal pain or diarrhea. Laboratory data showed WBC 6.6 hemoglobin 14.1 and platelets 252 lymphocytes 0.479 D-dimer level is 1.36 sodium 135 potassium 4.2 BUN 27 creatinine improved to 1.0. LDH 546 and CRP 5.3. Patient is being current IV hydration with normal saline at 100 cc/h. Pulmonary is on board.. 04/29/2021 Patient is currently lying in the bed. Awake alert aware x3. Requiring oxygen 7 L via nasal cannula. Patient has been afebrile. Denies any chest pain. No nausea vomiting abdominal pain. Renal function normalized. Reduce IV fluids 40 cc/h. Laboratory data showed D-dimer 1.84 BUN 13 and creatinine 0.7 LDH 486 and CRP 2.2 Patient is being current dexamethasone Lovenox and multivitamins. Pulmonary on board. Current medications reviewed. Objective - Vital Signs Vital signs: Vital Signs Temp 97.9 F 04/29/21 10:45 Pulse 73 04/29/21 17:49 Resp 19 04/29/21 19:37 BP 161/98 04/29/21 17:49 Pulse Ox 87 L 04/29/21 20:59 Intake & Output 04/29/21 04/29/21 04/30/21 06:59 18:59 06:59 Intake Total 221 Output Total 825 150 Balance -604 -150 Intake: Oral 221 Output: Urine 825 150 Other: Voiding Method Urinal Urinal Urinal # Voids 3 1 # Bowel Movements 0 - Exam PHYSICAL EXAMINATION: Patient is lying in the bed comfortably, no acute distress, awake alert and oriented. appears weak. HEENT: Normocephalic. Neck is supple. Pupils reactive. Nostrils clear. Oral cavity is moist. Neck reveals no JVD, carotid bruits, or thyromegaly. CHEST EXAMINATION: Trachea is central. Symmetrical expansion. Bilateral coarse sounds. Minimal expiratory wheezing. Nonlabored breathing.. CARDIAC: Normal S1, S2 with no gallops. No murmurs ABDOMEN: Soft. Bowel sounds normal. No organomegaly. No abdominal bruits. Extremities: reveal no edema. No clubbing or cyanosis Neurologically awake, alert, oriented x3 with well-coordinated movements. No focal deficits noted Skin: No rash or skin lesions. Psychiatric: Cooperative. Nonsuicidal Musculoskeletal: No joint swelling or deformity. Normal range of motion. - Labs CBC & Chem 7: 04/28/21 08:46 04/29/21 07:23 Labs: Abnormal Lab Results - Last 24 Hours (Table) 04/29/21 04/29/21 Range/Units 07:23 07:24 D-Dimer 1.84 H (<0.60) mg/L FEU Carbon Dioxide 18.8 L (20.0-27.5) mmol/L Anion Gap 9.80 L (10.00-18.00) mmol/L BUN/Creatinine Ratio 20.76 H (12.00-20.00) Ratio Glucose 114 H (70-110) mg/dL Calcium 8.0 L (8.7-10.3) mg/dL Lactate Dehydrogenase 486 H (120-246) U/L C-Reactive Protein 2.20 H (0.00-0.80) mg/dL Assessment and Plan Assessment: Acute hypoxic respiratory failure secondary to COVID-19 infection Generalized weakness, nausea and vomiting secondary to COVID-19 infection COVID-19 pneumonia Elevated inflammatory markers Hypovolemic hyponatremia Acute kidney injury likely prerenal. improved. Ongoing nicotine addiction DVT prophylaxis with Lovenox subcu Plan: Patient will be continued on oxygen supplementation and continue with IV hydration. Currently on oxygen at 7 L via nasal cannula. will continue with dexamethasone 6 mg IV push daily and multivitamins and Lovenox subcu. Symptomatic management for nausea and vomiting. Pulmonary was consulted. Continue to follow closely. Time with Patient: Greater than 30
[2021-04-30] MEDS ORDERED: LORazepam 2 MG/ML INJ IV PRN (01:16)
[2021-04-30] MEDS ORDERED: MORPHINE SULFATE 4 MG/ML SYRINGE IVP STA (02:31)
[2021-04-30] MEDS ORDERED: HEPARIN SODIUM 1,000 UN/ML (10ML VL) IV ONE (02:38)
[2021-04-30] MEDS ORDERED: HEPARIN SODIUM 1,000 UN/ML (10ML VL) IV PRN (02:38)
[2021-04-30] MEDS ORDERED: HEPARIN SOD,PORK IN 0.45% NACL 25,000 UNIT in 0.45% NACL 1 250ML.BAG IV SCH (02:45)
--- NOTE | 2021-04-30 02:54 | P.EN ---
A- team: Indication: Left leg pain Arrived on Scene to find: Activated at 0219. Arrived at the scene shortly after. Patient complaining of left leg pain. The RN reports that the patient began complaining of this pain at around 1:30 AM. Patient states it is 10 out of 10 at time of interview, occurring diffusely throughout his left leg from the hip down to the toes. He denied any prior history of such pain with history of clots in the legs. He also reports numbness and tingling in this leg. Denied weakness of the leg. Denied any additional complaints. Patient seen and examined at bedside. Vital signs reviewed General: Patient on Airvo and nonrebreather, in moderate distress from pain, [appears at stated age] Derm: [warm], [dry] Head: [atraumatic], [normocephalic], [symmetric] Eyes: [EOMI], [no lid lag], [anicteric sclera] Mouth: [no lip lesion], [mucus membranes moist] Cardiovascular: [S1S2 reg], [no murmur], unable to palpate popliteal, dorsalis pedis, or posterior tibial pulses of the left leg, audible left femoral noted on bedside doppler but unable to locate left popliteal or posterior tibial, left leg pale Lungs: Diffuse rhonchi, no wheezing, [no accessory muscle use] Abdominal: [soft], [ nontender to palpation], [no guarding], [no appreciable organomegaly] Ext: [no gross muscle atrophy], [no edema], [no contractures] Neuro: [ CN II-XI grossly intact], [no focal neuro deficits] Psych: [Alert], [oriented], [appropriate affect] Assessment: Suspected acute left lower extremity arterial occlusion -I discussed the case with vascular surgery flight operations specialist Dr. Hernandez -CTA aorta with run-off ordered -High-intensity heparin infusion initiated -Patient will be monitored closely -Pain medications ordered Notified: Primary team notified by the RN A Total of 35 minutes of critical care time was spent on the complex care of this patient.
--- NOTE | 2021-04-30 02:59 | US ---
EXAMINATION TYPE: US venous doppler duplex LE LT DATE OF EXAM: 04/30/2021 2:33 AM COMPARISON: NONE CLINICAL HISTORY: Pt. numb in Left foot and decreased pulse. left leg pain SIDE PERFORMED: left TECHNIQUE: The lower extremity deep venous system is examined utilizing real time linear array sonog maribel with graded compression, doppler sonography and color-flow sonography. VESSELS IMAGED: Common Femoral Vein Deep Femoral Vein Greater Saphenous Vein * Femoral Vein Popliteal Vein Small Saphenous Vein * Proximal Calf Veins (* superficial vessels) Left Leg: *exam cancelled per A-team. *technical limitations, patient unable to hold still due to la rge amount of pain. unable to finish exam. color flow noted, no evidence of acute DVT as visualized. no compressions done. left popliteal vein not visualized IMPRESSION: Limited exam shows no evidence of deep vein thrombosis in the left femoral vein.
[2021-04-30] MEDS ORDERED: LORazepam 2 MG/ML INJ IV STA (03:04)
--- NOTE | 2021-04-30 03:51 | CT ---
EXAMINATION TYPE: CT angio abd aorta w/Runoff DATE OF EXAM: 04/30/2021 COMPARISON: HISTORY: rule out acute arterial occlusion left leg. pain and numbness. CT DLP: 1382.50 mGycm Automated exposure control for dose reduction was used. CONTRAST: Performed with IV Contrast, patient injected with 100ml mL of Isovue 370. Images obtained from the level of the mid pelvis to the bottom of the feet with IV contrast. Exam soto ited by motion. The contrast was Isovue 100 mL. There are 3-D post processed images. There is arterial flow in the internal and external iliac arteries bilaterally. There is contrast in both femoral veins. There is significant motion artifact at the level of the hip joints. There is art erial flow in the right femoral artery and right popliteal artery. There is arterial flow in the righ t tibial artery trifurcation. At the distal tibia there is right side dorsalis pedis artery flow as w ell as posterior tibial artery flow. No significant contrast seen in the right posterior tibial arter y at the level of the talus. On the left side as best as one can tell there is complete occlusion of the left femoral artery at it s origin. No contrast seen in the entire left leg. IMPRESSION: Abdominal aorta was not evaluated due to lack of patient cooperation. There is arterial flow in both internal and external iliac arteries. There is complete occlusion of the left femoral artery at its o rigin. No evidence of any significant flow in the profunda femoris artery is well. Within the limits of the exam there is satisfactory arterial flow on the right side down to the lower calf. There is dorsalis pedis artery flow at the mid foot.
[2021-04-30] MEDS ORDERED: propofoL 100 ML IV ONE (03:58)
--- NOTE | 2021-04-30 04:42 | XR ---
EXAMINATION TYPE: XR chest 1V portable DATE OF EXAM: 04/30/2021 COMPARISON: NONE HISTORY: Tube placement TECHNIQUE: Single view FINDINGS: There is endotracheal tube 3 cm from the alise. There is left side ventricular shunt alexia ter. There is nasogastric tube in the stomach. There is patchy pulmonary interstitial and airspace ed iam. Exam limited by overlying artifact. IMPRESSION: There is pulmonary edema which is significantly increased compared to exam yesterday.
[2021-04-30 04:56] LABS: ABG Base Excess -3.6 mmol/L; ABG HCO3 21 mmol/L (21-25); ABG PCO2 35 mmHg (35-45); ABG TCO2 22 mmol/L (19-24); Allen Test Performed? Yes
[2021-04-30 05:01] LABS: ABG PO2 59 mmHg (83-108)
[2021-04-30] MEDS: fentaNYL (PF). 1,000 MCG in SODIUM CHLORIDE 0.9% 80 ML IV SCH (05:44)
--- NOTE | 2021-04-30 05:45 | P.GSCN ---
History of Present Illness Consult date: 04/30/21 Reason for Consult: Left lower extremity ischemia History of present illness: 66 year old gentleman who was admitted to the hospital secondary to shortness of breath, cough, nausea and vomiting. He was diagnosed with Covid as well as acute renal injury. His labs have been improving over the last couple of days and patient was improving from a respiratory status. Early this morning he started to have severe pain in his left lower extremity and the A team was called for loss of pulses and cool leg. At the time he was moving his leg and foot and was initiated on heparin drip and was sent to have a CT scan with contrast. During the scan he was becoming more agitated and ultimately required intubation. Per nursing his left leg has started to become mottled and pale. No doppler signal from the groin to the foot. He has been hemodynamically stable and not requiring any pressure support. 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 Past Psychological History: No Psychological Hx Reported Smoking Status: Current every day smoker Past Alcohol Use History: Occasional Past Drug Use History: None Reported Medications and Allergies Home Medications Medication Instructions Recorded Confirmed Type No Known Home Medications 04/27/21 04/27/21 History Allergies Allergy/AdvReac Type Severity Reaction Status Date / Time No Known Allergies Allergy Verified 04/27/21 15:12 Surgical - Exam Vital Signs Temp Pulse Resp BP Pulse Ox 97.8 F 92 22 134/87 85 L 04/27/21 13:01 04/27/21 13:01 04/27/21 13:01 04/27/21 13:01 04/27/21 13:01 non palpable left femoral, popliteal, tibial arteries. Leg is cool, mottled from the thigh to the knee. Pale from knee to foot without capillary refill. Palpable right femoral, popliteal pulse. Difficult to palpable tibial pulses but foot is warmer than the left. slowed capillary refill. - General Intubated, sedated - Neck no masses, no bruits - Respiratory vented, course breath sounds bilaterally. - Cardiovascular tachycardic - Abdomen Abdomen: soft, non tender, no masses, no guarding - Neurologic Unable to assess due to intubation and sedation Results - Labs 04/28/21 08:46 12/05/21 07:23 Abnormal Lab Results - Last 24 Hours (Table) 04/29/21 04/29/21 04/30/21 Range/Units 07:23 07:24 04:52 D-Dimer 1.84 H (<0.60) mg/L FEU ABG pO2 59 L* (83-108) mmHg ABG O2 Saturation 91.0 L (94-97) % Carbon Dioxide 18.8 L (20.0-27.5) mmol/L Anion Gap 9.80 L (10.00-18.00) mmol/L BUN/Creatinine Ratio 20.76 H (12.00-20.00) Ratio Glucose 114 H (70-110) mg/dL Calcium 8.0 L (8.7-10.3) mg/dL Lactate Dehydrogenase 486 H (120-246) U/L C-Reactive Protein 2.20 H (0.00-0.80) mg/dL Diabetes panel 04/29/21 Range/Units 07:23 Sodium 135 (135-145) mmol/L Potassium 3.6 (3.5-5.5) mmol/L Chloride 106 (96-109) mmol/L Carbon Dioxide 18.8 L (20.0-27.5) mmol/L BUN 13.6 (9.0-27.0) mg/dL Creatinine 0.7 (0.6-1.5) mg/dL Glucose 114 H (70-110) mg/dL Calcium 8.0 L (8.7-10.3) mg/dL Calcium panel 04/29/21 Range/Units 07:23 Calcium 8.0 L (8.7-10.3) mg/dL Pituitary panel 04/29/21 Range/Units 07:23 Sodium 135 (135-145) mmol/L Potassium 3.6 (3.5-5.5) mmol/L Chloride 106 (96-109) mmol/L Carbon Dioxide 18.8 L (20.0-27.5) mmol/L BUN 13.6 (9.0-27.0) mg/dL Creatinine 0.7 (0.6-1.5) mg/dL Glucose 114 H (70-110) mg/dL Calcium 8.0 L (8.7-10.3) mg/dL Adrenal panel 04/29/21 Range/Units 07:23 Sodium 135 (135-145) mmol/L Potassium 3.6 (3.5-5.5) mmol/L Chloride 106 (96-109) mmol/L Carbon Dioxide 18.8 L (20.0-27.5) mmol/L BUN 13.6 (9.0-27.0) mg/dL Creatinine 0.7 (0.6-1.5) mg/dL Glucose 114 H (70-110) mg/dL Calcium 8.0 L (8.7-10.3) mg/dL - Imaging Additional studies: CTA extremities demonstrate left common femoral and popliteal artery occlusion. calcified arteries extending to the ankle. Patent bilateral external iliac arteries and right femoral to tibial arteries. Assessment and Plan Assessment: 1. Acute left lower extremity arterial occlusion Phenix 2b 2. Covid pneumonia 3. VDRF secondary to Covid 4. Tachycardia 5. Acute kidney injury-improved Plan: To cath lab radiological technologist emergently for left lower extremity angiogram with thrombolytic catheter placement and initiation of thrombolysis. Continue heparin drip. Obtain cbc, cmp, pt, ptt and inr labs. Discussion had with patients daughter who is in agreement of procedure. Time with Patient: Greater than 30
[2021-04-30] MEDS ORDERED: LIDOCAINE 1% INJ 10MG/ML (20 ML MDV) ONE (06:00)
[2021-04-30] MEDS ORDERED: ROCURONIUM 10 MG/ML (5 ML VIAL) IV ONE (06:09)
[2021-04-30] MEDS ORDERED: LIDOCAINE 1% INJ 10MG/ML (20 ML MDV) SQ ONE (06:21)
[2021-04-30] MEDS ORDERED: ALTEPLASE 10 MG in SODIUM CHLORIDE 0.9% 100 ML IV ONE (06:30)
[2021-04-30] MEDS ORDERED: ALTEPLASE 2 MG VIAL (CATHFLO) IV STA (06:37)
[2021-04-30] MEDS ORDERED: IOPAMIDOL-250 100ML BTL INTRAARTER ONE (06:58)
[2021-04-30] MEDS: HEPARIN SOD,PORK IN 0.45% NACL 25,000 UNIT in 0.45% NACL 1 250ML.BAG IV SCH (07:01)
[2021-04-30] MEDS ORDERED: SODIUM CHLORIDE 0.9% 1,000 ML IV ONE (07:02)
[2021-04-30] MEDS: SODIUM CHLORIDE 0.9% 1,000 ML IV SCH ×2 (07:03→18:42)
--- NOTE | 2021-04-30 07:20 | P.OP ---
Date of Procedure: 04/30/21 Preoperative Diagnosis: Acute left lower extremity critical limb ischemia Marshall classification IIb Thrombosis of left common femoral, profunda, superficial femoral, popliteal and tibial arteries. Postoperative Diagnosis: Same Procedure(s) Performed: 1. Ultrasound guided right common femoral artery access 2. Selective left lower extremity angiogram 3. Placement of thrombolytic catheter and inititiation of EKOS thrombolysis 4. Selective left lower extremity tibial angiogram 3rd order Anesthesia: GETA Surgeon: Dayron Hernandez Estimated Blood Loss (ml): 5 Pathology: none sent Condition: stable Disposition: ICU Indications for Procedure: 66 year old gentlemen who is currently being treated for Covid pneumonia developed acute pain in his left lower extremity around 2am. He was evaluated with CTA and started on a heparin drip at that time. CTA demonstrated occlusion of the entire left lower extremity from the femoral artery to tibials. He was becoming more altered and was intubated after the CTA but nursing states he was moving his lower extremity and ankle at that time. Shortly after intubation patients leg began to become mottled. The team was called in and patient taken emergently to the logging rafter laborer for TPA and revascularization. Operative Findings: Acute thrombosis of the left femoral, popliteal, and tibial vessels. Description of Procedure: After written and informed consent was obtained from the patients daughter and all risks, benefits and complications were described the patient was brought to the logging rafter laborer and laid in a supine position. The area of the groins were prepped and draped in the usual fashion. Utilizing ultrasound the right common femoral artery was visualized and accessed. A 6F sheath was then placed utilizing Seldinger technique. An 035 glidewire was then placed into the descending aorta followed by a Rbi catheter and the left iliac was entered. Angiogram was obtained demonstrating occlusion of the left femoral artery. Glidewire was then placed across the lesion into the superficial femoral artery and to the tibial peroneal trunk. Catheter was then placed over the wire into the SFA and wire was exchanged for a glidewire advantage and a 6F long 55cm sheath was placed. EKOS infusion catheter 50cm length was then guided to the tibial peroneal trunk and distal angiogram was obtained of the tibial peroneal trunk which demonstrated thrombus within all vessels with minimal flow to the ankle. Catheter was then infused with TPA bolus and initiation of thrombolysis was started. Sheath was sutured in place and dressings placed. He was then sent back to ICU for monitoring. We will infuse over the next several hours and re- eval later today for recheck. Disposition: Patient is in critical condition and may require amputation of the left leg if no improvement.
--- NOTE | 2021-04-30 08:28 | IR ---
Fluoroscopy HISTORY: Cold left leg 7 minutes fluoroscopy time supplied to the referring clinician. 132 intraoperative C-arm images docu ment the procedure. See dictated report from vascular surgery.
[2021-04-30 08:45] LABS: Basophils # (A) 0.1 k/uL (0-0.2); Basophils % (A) 0 %; Eosinophils # (A) 0.1 k/uL (0-0.7); Eosinophils % (A) 1 %; HCT 41.5 % (39.0-53.0); HGB 14.7 gm/dL (13.0-17.5); Lymphocytes # (A) 0.5 k/uL (1.0-4.8); Lymphocytes % (A) 3 %; MCH 32.5 pg (25.0-35.0); MCHC 35.3 g/dL (31.0-37.0); MCV 91.9 fL (80.0-100.0); Mean Platelet Volume 8.6; Monocytes # (A) 0.7 k/uL (0-1.0); Monocytes % (A) 4 %; Neutrophils # (A) 17.5 k/uL (1.3-7.7); Neutrophils % (A) 92 %; Platelet Count 168 k/uL (150-450); RBC 4.52 m/uL (4.30-5.90); RDW 13.3 % (11.5-15.5); WBC 18.9 k/uL (3.8-10.6)
[2021-04-30] MEDS: ZINC SULFATE 220 MG CAP PO SCH (09:00)
[2021-04-30 09:03] LABS: ALT 39 U/L (4-49); AST 77 U/L (17-59); African American GFR (CKD) >90 (>60 ml/min/1.73 sqM); Albumin 3.1 g/dL (3.5-5.0); Alkaline Phosphatase 114 U/L (38-126); Anion Gap 8 mmol/L; Blood Urea Nitrogen 9 mg/dL (9-20); Carbon Dioxide 26 mmol/L (22-30); Chloride 106 mmol/L (98-107); Glucose 118 mg/dL (74-99); Non-African American GFR(CKD) >90 (>60 ml/min/1.73 sqM); Potassium 3.5 mmol/L (3.5-5.1); Sodium 140 mmol/L (137-145); Total Bilirubin 1.5 mg/dL (0.2-1.3); Total Protein 7.6 g/dL (6.3-8.2)
[2021-04-30 09:09] LABS: Partial Thromboplastin Time 40.7 sec (22.0-30.0)
[2021-04-30] MEDS: CHOLECALCIFEROL 25 MCG (1000 IU) TABLET PO SCH (09:23)
[2021-04-30] MEDS: CHLORHEXIDINE GLUCONATE 15 ML CUP MUCOUS MEM SCH ×2 (09:23→21:25)
[2021-04-30] MEDS: ASCORBIC ACID 500 MG TAB PO SCH (09:24)
[2021-04-30] MEDS: DEXAMETHASONE SOD PHOSPHATE 10 MG/ML 1 ML VIAL IVP SCH (09:25)
[2021-04-30] MEDS: FAMOTIDINE 20 MG/2 ML VIAL IV SCH ×2 (09:25→21:25)
[2021-04-30 09:46] LABS: INR 1.4 (<1.2); Prothrombin Time 14.3 sec (9.0-12.0)
[2021-04-30] MEDS ORDERED: Potassium Replacement Protocol 1 EACH MISC MISCELLANE PRN (11:31)
[2021-04-30] MEDS ORDERED: POTASSIUM BICARBONATE/CIT AC 20 MEQ TABLET.EFF NG-TUBE SCH (12:00)
--- NOTE | 2021-04-30 13:26 | P.PN ---
Subjective Progress Note Date: 04/30/21 Principal diagnosis: Acute hypoxic referral failure secondary to COVID-19 pneumonia, acute left lower limb ischemia secondary to thrombosis of the left common femoral, profunda, valdez perficial femoral, popliteal, and tibial arteries. 66-year-old male patient presented to the hospital because of increased cough and shortness of breath in addition to some nausea and emesis. The patient was quite dehydrated. His appetite was poor. He was confirmed having a COVID 19 infection. The patient has been symptomatic over almost 2 weeks. This patient is not vaccinated. No reported fever. He has generalized weakness and myalgias. In the burst department, the patient was afebrile. Pulse ox initially was 85%. Currently he is on oxygen at 4 L per minute nasal cannula. The chest x-ray shows diffuse increased interstitial markings bilaterally consistent with pneumonia. The pulmonary vasculature is quite abundant. The patient also has a right lower lobe pulmonary infiltrate in the past that has improved on this current evaluation. A BUN of 56 with a creatinine of 1.8 con sistent with an acute kidney injury, sodium level was 133, there was evidence of mild transaminitis with an AST of 129, ALT of 62, The patient is seen today 04/28/2021 in follow-up on the regular medical floor. He is currently resting in bed. Laying flat. No worsening shortness of breath, cough or congestion. His requiring 6 L high flow nasal cannula to maintain O2 saturations in the mid 90s. He is afebrile. Hemodynamically stable. White count 6.6. Hemoglobin 14.1. Lymphocytes 0.47. D-dimer 1.36. Sodium 135. Potassium 4.2. Creatinine 1.0. Glucose 170. LDH 546. C-reactive protein 5.3. Pro-calcitonin 0.29. He is continued on Lovenox, Decadron, vitamin supplements. The patient is seen today 04/29/2021 in follow-up on the regular medical floor. He is seen resting comfortably in bed. Awake and alert in no acute distress. He is currently on 7 L high flow nasal cannula to maintain O2 saturations in the low 90s. He's been afebrile. Hemodynamically stable. Chest x-ray reveals diffuse interstitial airspace disease no significant change from previous on 04/27/2021. D-dimer 1.84. Sodium 135. Potassium 3.6. Creatinine 0.7. LDH 46. C-reactive protein 2.20. He is continued on Decadron, Lovenox, vitamin supplements. Reevaluated today on 04/30/21, patient remains in the ICU, patient is on assist control rate of 24, tidal volume is 400 FiO2 on the percent PEEP of 5. ABG showed a pO2 of 59 pCO2 of 35 pH of 7.40. Patient is on propofol at 45, fentanyl at 0.5 mcg/kg/h, heparin 500 units per hour, he is also on TPA via ekos catheter. Early this morning, the patient developed an acute ischemic event involving the left lower extremity and he had complete loss of pulses with cool left lower extremity. Patient was started on heparin drip, he was seen by vas cular surgery, underwent scanning, and he underwent intubation and mechanical ventilation as he was getting extremely agitated. Patient had a mottled left lower extremity, and there was no Doppler signal from the groin to the foot. At any rate the patient was evaluated by vascular and he underwent selective left lower extremity angiogram, placement of thrombolytic catheter and initiation of ekos thrombolysis. Then he was later sent back to the ICU, and seems to be doing relatively well considering the new events. WBC count today is 18.9 hemoglobin 14.7. D-dimer is 1.84 went up to 34. Asymptomatic metabolic profile is normal renal profile is normal LDH is 486 and C-reactive protein is 2.20 chest x-ray showed bilateral infiltrates however right seems to be more involved than left Objective - Vital Signs Vital signs: Vital Signs Temp 99.6 F 04/30/21 08:00 Pulse 111 H 04/30/21 11:00 Resp 24 04/30/21 12:00 BP 145/88 04/30/21 09:00 Pulse Ox 94 L 04/30/21 11:00 Intake & Output 04/29/21 04/30/21 04/30/21 18:59 06:59 18:59 Intake Total 84.781 380 Output Total 750 1300 Balance -665.219 -920 Weight 77.111 kg Intake: IV 80 380 Alteplase 10 mg In Sodium 40 Chloride 0.9% 100 ml @ 1 MG/HR 10 mls/hr IV .Q10H ONE Rx#:[id number] Coolant NS @ 35 ml/hr 140 Heparin Sod,Pork in 0.45% 40 NaCl 25,000 unit In 0.45 % NaCl 1 250ml.bag @ 5 mls/hr IV .Q24H YESENIA Rx#: [id number] Sodium Chloride 0.9% 1, 80 160 000 ml @ 40 mls/hr IV . Q24H YESENIA Rx#:[id number] Intake, IV Titration 4.781 Amount propofoL 1,000 mg In 4.781 Empty Bag 1 bag @ Titrate IV .Q0M YESENIA Rx#: [id number] Output: Urine 750 1300 Other: Voiding Method Urinal Indwelling Catheter Indwelling Catheter # Voids 1 ABP, PAP, CO, CI - Last Documented Arterial Blood Pressure 112/72 - Exam General appearance: Field 66-year-old white male intubated and mechanically ventilated. Head exam: Atraumatic, normocephalic. Eye exam: Blood, EOMI, anicteric, no neck masses, no JVD. ENT exam: Dry mucous membranes. Throat is clear. Neck exam: Supple no neck masses no JVD. Respiratory exam: Symmetrical chest expansion crackles at the bases. Cardiovascular Exam: S1-S2, no S3 gallop. GI/Abdominal exam: Soft nontender no megaly no rebound. Cath stent noted in the right groin. Extremities exam: No clubbing edema or cyanosis. Right groin catheter/thrombolytic catheter is noted in the right groin. Neurological exam: Could not be assessed, patient is fully sedated, mechanically ventilated. Psychiatric exam: Did not assess. Skin exam: No rashes. - Labs CBC & Chem 7: 04/30/21 08:30 04/30/21 08:30 Labs: Abnormal Lab Results - Last 24 Hours (Table) 04/30/21 04/30/21 04/30/21 Range/Units 04:52 08:30 08:30 WBC 18.9 H (3.8-10.6) k/uL Neutrophils # 17.5 H (1.3-7.7) k/uL Lymphocytes # 0.5 L (1.0-4.8) k/uL PT (9.0-12.0) sec INR (<1.2) APTT (22.0-30.0) sec D-Dimer (<0.60) mg/L FEU ABG pO2 59 L* (83-108) mmHg ABG O2 Saturation 91.0 L (94-97) % Glucose 118 H (74-99) mg/dL Calcium 8.0 L (8.4-10.2) mg/dL Total Bilirubin 1.5 H (0.2-1.3) mg/dL AST 77 H (17-59) U/L Albumin 3.1 L (3.5-5.0) g/dL 04/30/21 04/30/21 Range/Units 08:30 08:30 WBC (3.8-10.6) k/uL Neutrophils # (1.3-7.7) k/uL Lymphocytes # (1.0-4.8) k/uL PT 14.3 H (9.0-12.0) sec INR 1.4 H (<1.2) APTT 40.7 H (22.0-30.0) sec D-Dimer >34.10 H (<0.60) mg/L FEU ABG pO2 (83-108) mmHg ABG O2 Saturation (94-97) % Glucose (74-99) mg/dL Calcium (8.4-10.2) mg/dL Total Bilirubin (0.2-1.3) mg/dL AST (17-59) U/L Albumin (3.5-5.0) g/dL Microbiology - Last 24 Hours (Table) 04/30/21 05:00 Sputum Culture - Preliminary Sputum 04/30/21 05:10 Urine Culture - Preliminary Urine,Catheterized Assessment and Plan Assessment: Pression: Acute hypoxic respiratory failure secondary to acute COVID-19 pneumonia, outside the window for remdesivir Acute left lower extremity ischemia with arterial thrombosis as noted above. Requiring surgical intervention by vascular surgery, remains presently on heparin and on thrombolytics. Acute kidney injury, improving this is secondary to COVID-19 infection. Recommendation: Continue ventilatory support, address ventilatory settings accordingly based on follow-up ABG. Continue fentanyl, heparin, tPA, and propofol. Continue Decadron. Discussed with pharmacy, patient is not a candidate for baricitinib Patient is out of the window for remdesivir We will continue to follow Patient is critically ill, critical care time is over 30 minutes Time with Patient: Greater than 30
[2021-04-30 21:37] LABS: Partial Thromboplastin Time 86.4 sec (22.0-30.0)
[2021-05-01] MEDS: fentaNYL (PF). 1,000 MCG in SODIUM CHLORIDE 0.9% 80 ML IV SCH ×2 (02:29→15:32)
[2021-05-01 03:58] LABS: Basophils % (A) 0 %; Eosinophils # (A) 0.1 k/uL (0-0.7); Eosinophils % (A) 1 %; HCT 40.3 % (39.0-53.0); HGB 13.6 gm/dL (13.0-17.5); Lymphocytes # (A) 0.4 k/uL (1.0-4.8); Lymphocytes % (A) 4 %; MCH 31.5 pg (25.0-35.0); MCHC 33.8 g/dL (31.0-37.0); MCV 93.1 fL (80.0-100.0); Mean Platelet Volume 9.1; Monocytes # (A) 0.3 k/uL (0-1.0); Monocytes % (A) 3 %; Neutrophils # (A) 10.2 k/uL (1.3-7.7); Neutrophils % (A) 92 %; Platelet Count 154 k/uL (150-450); RBC 4.33 m/uL (4.30-5.90); RDW 13.7 % (11.5-15.5)
[2021-05-01 04:34] LABS: Partial Thromboplastin Time 75.7 sec (22.0-30.0)
[2021-05-01 05:31] LABS: ALT 62 U/L (4-49); AST 447 U/L (17-59); African American GFR (CKD) >90 (>60 ml/min/1.73 sqM); Albumin 2.6 g/dL (3.5-5.0); Alkaline Phosphatase 96 U/L (38-126); Anion Gap 9 mmol/L; Blood Urea Nitrogen 17 mg/dL (9-20); Calcium 7.4 mg/dL (8.4-10.2); Carbon Dioxide 21 mmol/L (22-30); Chloride 110 mmol/L (98-107); Glucose 130 mg/dL (74-99); Non-African American GFR(CKD) >90 (>60 ml/min/1.73 sqM); Potassium 3.8 mmol/L (3.5-5.1); Sodium 140 mmol/L (137-145); Total Protein 6.7 g/dL (6.3-8.2)
[2021-05-01 06:01] LABS: ABG Base Excess 0.7 mmol/L; ABG HCO3 25 mmol/L (21-25); ABG Oxygen Saturation 89.2 % (94-97); ABG PCO2 40 mmHg (35-45); ABG PH 7.41 (7.35-7.45); ABG TCO2 27 mmol/L (19-24)
[2021-05-01 06:17] LABS: ABG PO2 53 mmHg (83-108); Allen Test Performed? Yes
--- NOTE | 2021-05-01 07:18 | P.PN ---
Progress Note - Text Progress Note Date: 04/30/21 Patient seen and examined. Left leg is warm to the knee. Palpable femoral and popliteal pulse. Still mottled at the foot and calf. TPA is working and will continue overnight with plan for recheck in am. May need advancement of TPA catheter and continued treatment. Will likely require amputation in future if no further improvement.
[2021-05-01] MEDS ORDERED: LIDOCAINE 1% INJ 10MG/ML (20 ML MDV) ONE (07:25)
[2021-05-01] MEDS ORDERED: IV FLUID CONTINUATION 1,000 ML IV ONE (08:05)
[2021-05-01] MEDS ORDERED: ALTEPLASE 10 MG in SODIUM CHLORIDE 0.9% 100 ML IV ONE (08:19)
[2021-05-01] MEDS ORDERED: IOPAMIDOL-250 100ML BTL INTRAARTER ONE (08:37)
--- NOTE | 2021-05-01 08:44 | P.OP ---
Date of Procedure: 05/01/21 Preoperative Diagnosis: Left lower extremity critical limb ischemia s/p thrombolysis Postoperative Diagnosis: Same Patent femoral and popliteal artery with thrombus noted in tibial arteries Procedure(s) Performed: 1. Angiogram via existing sheath 2. Repositioning of thrombolytic catheter and restarting thrombolysis Anesthesia: JULIO Surgeon: Dayron Hernandez Estimated Blood Loss (ml): 5 Pathology: none sent Condition: stable Disposition: PACU Indications for Procedure: 66 year old gentleman with Covid and acute thrombosis s/p left lower extremity TPA thrombolysis with EKOS. Patients leg has improved down to the knee and patient presents today for advancement of the catheter to treat the lower leg. Operative Findings: patent femoral and SFA down to the popliteal artery with thrombus noted in the tibials Description of Procedure: Patient brought to the feed mill lab technician and laid in a supine position and the right femoral sheath and catheters were prepped and draped in the usual fashion. The ultrasound wire was removed and angiogram was performed from the up and over sheath as well as the infusion catheter. There was improvement of the thrombus in the SFA and femoral and noted thrombus in the tibial arteries. A glidewire was placed and advanced to the posterior tibial artery and the infusion catheter was advanced as well. The ultrasound wire was replaced and we will continue tpa thrombolysis. The area was cleansed and dressings placed. He was then sent back to ICU for continued care. He will need recheck tomorrow am.
--- NOTE | 2021-05-01 09:26 | XR ---
EXAMINATION TYPE: XR chest 1V portable DATE OF EXAM: 05/01/2021 COMPARISON: 04/30/2021 HISTORY: Shortness of breath TECHNIQUE: Single frontal view of the chest is obtained. FINDINGS: ET and NG tube noted and there is a diffuse interstitial pattern with scattered areas of c onsolidation stable in appearance. Heart size stable. Hypertrophic and degenerative change of the spi ne. ELECTRONIC SENSING EQUIPMENT ASSEMBLER shunt catheter noted. No pneumothorax. IMPRESSION: Diffuse lung disease stable.
[2021-05-01] MEDS: ZINC SULFATE 220 MG CAP PO SCH (09:46)
[2021-05-01] MEDS: DEXAMETHASONE SOD PHOSPHATE 10 MG/ML 1 ML VIAL IVP SCH (09:46)
[2021-05-01] MEDS: CHOLECALCIFEROL 25 MCG (1000 IU) TABLET PO SCH (09:46)
[2021-05-01] MEDS: CHLORHEXIDINE GLUCONATE 15 ML CUP MUCOUS MEM SCH ×2 (09:46→22:49)
[2021-05-01] MEDS: ASCORBIC ACID 500 MG TAB PO SCH (09:46)
[2021-05-01] MEDS: FAMOTIDINE 20 MG/2 ML VIAL IV SCH ×2 (09:46→21:35)
[2021-05-01] MEDS: POTASSIUM CHLORIDE 10 MEQ in WATER FOR INJECTION 1 100ML.BAG IVPB SCH ×2 (09:47→12:06)
--- NOTE | 2021-05-01 09:57 | P.PN ---
Subjective Progress Note Date: 04/30/21 Principal diagnosis: acute hypoxic respiratory failure secondary to COVID-19 pneumonia Patient is a 66-year-old male with a known history of ongoing nicotine addiction presents to ER with complaints of generalized weakness, nausea vomiting and shortness of. Patient states that he has been having poor appetite and symptoms for the past 2 weeks. Patient felt very weak. Pressure points were COVID-19 infection. Patient is not vaccinated. Denies any complaints of fever or ch ills. No complaints of chest pain. Minimal cough without any sputum production. On admission pulse ox 85% on room air. Chest x-ray showed improving right lower lobe pneumonia. Diffuse increased lung markings are developing bilaterally. Correlate for atypical pneumonia. EKG showed normal sinus rhythm. Laboratory showed lymphocyte 0.6 WBC 6.8 hemoglobin 16.2 and platelets 281 and D-dimer level is 1.04 Sodium 133 potassium 3.6 chloride 100 bicarb is 21 BUN 56 and creatinine 1.81 Blood sugar is 108 AST 129 ALT 62 alk phos 101 LDH 05/30/2004 CRP 4.9 and proBNP 208 Coronavirus PCR detected. 04/28/2021 Patient is currently resting in the bed. Requiring oxygen at 6 L via nasal cannula. Denies any complaints of chest pain. No fever no chills. No nausea vomiting or abdominal pain or diarrhea. Laboratory data showed WBC 6.6 hemoglobin 14.1 and platelets 252 lymphocytes 0.479 D-dimer level is 1.36 sodium 135 potassium 4.2 BUN 27 creatinine improved to 1.0. LDH 546 and CRP 5.3. Patient is being current IV hydration with normal saline at 100 cc/h. Pulmonary is on board.. 04/29/2021 Patient is currently lying in the bed. Awake alert aware x3. Requiring oxygen 7 L via nasal cannula. Patient has been afebrile. Denies any chest pain. No nausea vomiting abdominal pain. Renal function normalized. Reduce IV fluids 40 cc/h. Laboratory data showed D-dimer 1.84 BUN 13 and creatinine 0.7 LDH 486 and CRP 2.2 Patient is being current dexamethasone Lovenox and multivitamins. Pulmonary on board. 04/30/2021 Patient is currently MICU. Around 2 AM last night patient suddenly developed s evere left leg pain 10 out of 10 in severity and noted that unable to palpate popliteal dorsalis pedis posterior tibial pulses of the left leg. Suspected acute left lower extremity arterial occlusion. CTA of the left lower activity was ordered and high intensity heparin infusion was started. Vascular surgery was consulted. Patient was also found to have mottling of the left lower extremity. Patient was taken to or and had ultrasound-guided right common femoral artery access and selective left lower extremity angiogram was done. Status post thrombolytic catheter and initiation of [place] thrombolysis. His respiratory status also worsened and was intubated. Transferred to MICU. Patient is currently on the ventilator. Laboratory data showed WBC 18.9 hemoglobin 14.7 and platelets 168 INR 1.4 d-dimer was greater than 34 BUN 9 and creatinine 0.67 potassium 3.5. Total bilirubin level is 1.5 AST 77 ALT 39 and alk phos 114 albumin 3.1. Patient is being continued on dexamethasone heparin drip and multivitamins for COVID-19 pneumonia. Chest x-ray this morning showed pulmonary edema which is significantly increased compared to yesterday. Current medications reviewed. Objective - Vital Signs Vital signs: Vital Signs Temp 98.7 F 04/30/21 06:00 Pulse 125 H 04/30/21 06:00 Resp 44 H 04/30/21 06:00 BP 147/96 04/30/21 06:00 Pulse Ox 93 L 04/30/21 06:00 Intake & Output 04/29/21 04/30/21 04/30/21 18:59 06:59 18:59 Intake Total 84.781 Output Total 750 1000 Balance -665.219 -1000 Intake: IV 80 Sodium Chloride 0.9% 1, 80 000 ml @ 40 mls/hr IV . Q24H YESENIA Rx#:[id number] Intake, IV Titration 4.781 Amount propofoL 1,000 mg In 4.781 Empty Bag 1 bag @ Titrate IV .Q0M YESENIA Rx#: [id number] Output: Urine 750 1000 Other: Voiding Method Urinal Indwelling Catheter # Voids 1 - Exam PHYSICAL EXAMINATION: Patient is on mechanical ventilator and sedated.. HEENT: Normocephalic. Neck is supple. Pupils reactive. Nostrils clear. Oral cavity is moist. Neck reveals no JVD, carotid bruits, or thyromegaly. CHEST EXAMINATION: Trachea is central. Symmetrical expansion. ET tube in place. Bilateral coarse sounds. Minimal expiratory wheezing. CARDIAC: Normal S1, S2 with no gallops. No murmurs ABDOMEN: Soft. Bowel sounds normal. No organomegaly. No abdominal bruits. Extremities: reveal no edema. Left lower extremity mottling skin changes. Neurologically patient is currently on mechanical ventilator. Sedated. Gross No focal deficits noted Skin: No rash or skin lesions. Psychiatric: Could not be assessed this time. Musculoskeletal: No joint swelling or deformity. - Labs CBC & Chem 7: 05/01/21 03:30 05/01/21 03:30 Labs: Abnormal Lab Results - Last 24 Hours (Table) 04/29/21 04/30/21 04/30/21 Range/Units 07:23 04:52 08:30 WBC (3.8-10.6) k/uL Neutrophils # (1.3-7.7) k/uL Lymphocytes # (1.0-4.8) k/uL PT (9.0-12.0) sec INR (<1.2) APTT (22.0-30.0) sec D-Dimer (<0.60) mg/L FEU ABG pO2 59 L* (83-108) mmHg ABG O2 Saturation 91.0 L (94-97) % Carbon Dioxide 18.8 L (20.0-27.5) mmol/L Anion Gap 9.80 L (10.00-18.00) mmol/L BUN/Creatinine Ratio 20.76 H (12.00-20.00) Ratio Glucose 114 H 118 H (70-110) mg/dL Calcium 8.0 L 8.0 L (8.7-10.3) mg/dL Total Bilirubin 1.5 H (0.2-1.3) mg/dL AST 77 H (17-59) U/L Lactate Dehydrogenase 486 H (120-246) U/L C-Reactive Protein 2.20 H (0.00-0.80) mg/dL Albumin 3.1 L (3.5-5.0) g/dL 04/30/21 04/30/21 04/30/21 Range/Units 08:30 08:30 08:30 WBC 18.9 H (3.8-10.6) k/uL Neutrophils # 17.5 H (1.3-7.7) k/uL Lymphocytes # 0.5 L (1.0-4.8) k/uL PT 14.3 H (9.0-12.0) sec INR 1.4 H (<1.2) APTT 40.7 H (22.0-30.0) sec D-Dimer >34.10 H (<0.60) mg/L FEU ABG pO2 (83-108) mmHg ABG O2 Saturation (94-97) % Carbon Dioxide (20.0-27.5) mmol/L Anion Gap (10.00-18.00) mmol/L BUN/Creatinine Ratio (12.00-20.00) Ratio Glucose (70-110) mg/dL Calcium (8.7-10.3) mg/dL Total Bilirubin (0.2-1.3) mg/dL AST (17-59) U/L Lactate Dehydrogenase (120-246) U/L C-Reactive Protein (0.00-0.80) mg/dL Albumin (3.5-5.0) g/dL Assessment and Plan Assessment: Acute left lower reduction to be critical limb ischemia with 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 Initiated EKOS thrombolysis. Acute hypoxic respiratory failure secondary to COVID-19 infection. Currently on mechanical ventilator. Generalized weakness, nausea and vomiting secondary to COVID-19 infection COVID-19 pneumonia Elevated inflammatory markers Hypovolemic hyponatremia Acute kidney injury likely prerenal. improved. Ongoing nicotine addiction DVT prophylaxis with Lovenox subcu Plan: Patient is transferred to MICU. Initiated thrombolysis due to acute complete occlusion of left temporal artery at its origin.. Continued on mechanical ventilation will continue with dexamethasone 6 mg IV push daily and multivitamins and Lovenox subcu. Symptomatic management for nausea and vomiting. Pulmonary and vascular surgery on board.. Continue to follow closely. Time with Patient: Greater than 30
[2021-05-01 09:58] LABS: INR 1.2 (<1.2); Prothrombin Time 12.5 sec (9.0-12.0)
[2021-05-01] MEDS: HEPARIN SOD,PORK IN 0.45% NACL 25,000 UNIT in 0.45% NACL 1 250ML.BAG IV SCH (11:42)
[2021-05-01 11:45] LABS: Partial Thromboplastin Time 36.8 sec (22.0-30.0)
--- NOTE | 2021-05-01 13:17 | IR ---
EXAMINATION TYPE: IR transcath infusion therapy DATE OF EXAM: 05/01/2021 COMPARISON: NONE HISTORY: Fluoroscopy time. Fluoroscopy was provided to the referring clinician.
--- NOTE | 2021-05-01 14:48 | P.PN ---
Subjective Progress Note Date: 05/01/21 Principal diagnosis: Acute hypoxic referral failure secondary to COVID-19 pneumonia, acute left lower limb ischemia secondary to thrombosis of the left common femoral, profunda, valdez perficial femoral, popliteal, and tibial arteries. 66-year-old male patient presented to the hospital because of increased cough and shortness of breath in addition to some nausea and emesis. The patient was quite dehydrated. His appetite was poor. He was confirmed having a COVID 19 infection. The patient has been symptomatic over almost 2 weeks. This patient is not vaccinated. No reported fever. He has generalized weakness and myalgias. In the burst department, the patient was afebrile. Pulse ox initially was 85%. Currently he is on oxygen at 4 L per minute nasal cannula. The chest x-ray shows diffuse increased interstitial markings bilaterally consistent with pneumonia. The pulmonary vasculature is quite abundant. The patient also has a right lower lobe pulmonary infiltrate in the past that has improved on this current evaluation. A BUN of 56 with a creatinine of 1.8 con sistent with an acute kidney injury, sodium level was 133, there was evidence of mild transaminitis with an AST of 129, ALT of 62, The patient is seen today 04/28/2021 in follow-up on the regular medical floor. He is currently resting in bed. Laying flat. No worsening shortness of breath, cough or congestion. His requiring 6 L high flow nasal cannula to maintain O2 saturations in the mid 90s. He is afebrile. Hemodynamically stable. White count 6.6. Hemoglobin 14.1. Lymphocytes 0.47. D-dimer 1.36. Sodium 135. Potassium 4.2. Creatinine 1.0. Glucose 170. LDH 546. C-reactive protein 5.3. Pro-calcitonin 0.29. He is continued on Lovenox, Decadron, vitamin supplements. The patient is seen today 04/29/2021 in follow-up on the regular medical floor. He is seen resting comfortably in bed. Awake and alert in no acute distress. He is currently on 7 L high flow nasal cannula to maintain O2 saturations in the low 90s. He's been afebrile. Hemodynamically stable. Chest x-ray reveals diffuse interstitial airspace disease no significant change from previous on 04/27/2021. D-dimer 1.84. Sodium 135. Potassium 3.6. Creatinine 0.7. LDH 46. C-reactive protein 2.20. He is continued on Decadron, Lovenox, vitamin supplements. Reevaluated today on 04/30/21, patient remains in the ICU, patient is on assist control rate of 24, tidal volume is 400 FiO2 on the percent PEEP of 5. ABG showed a pO2 of 59 pCO2 of 35 pH of 7.40. Patient is on propofol at 45, fentanyl at 0.5 mcg/kg/h, heparin 500 units per hour, he is also on TPA via ekos catheter. Early this morning, the patient developed an acute ischemic event involving the left lower extremity and he had complete loss of pulses with cool left lower extremity. Patient was started on heparin drip, he was seen by vas cular surgery, underwent scanning, and he underwent intubation and mechanical ventilation as he was getting extremely agitated. Patient had a mottled left lower extremity, and there was no Doppler signal from the groin to the foot. At any rate the patient was evaluated by vascular and he underwent selective left lower extremity angiogram, placement of thrombolytic catheter and initiation of ekos thrombolysis. Then he was later sent back to the ICU, and seems to be doing relatively well considering the new events. WBC count today is 18.9 hemoglobin 14.7. D-dimer is 1.84 went up to 34. Asymptomatic metabolic profile is normal renal profile is normal LDH is 486 and C-reactive protein is 2.20 chest x-ray showed bilateral infiltrates however right seems to be more involved than left Reevaluated today on 05/01/2021, patient remains in the ICU, intubated, and mechanically ventilated. Patient is now on assist control rate of 24 tidal volume of 400 FiO2 70% PEEP of 14. His ABG showed a pO2 of 53, pCO2 of 40 pH of 7.41. Hence the PEEP was increased to 16. Patient remains on propofol at 55 but grams per kilo per minute, is also on fentanyl at 1.3 mcg/kg per hour. Patient had to go back to the cardiac catheterization lab, and he underwent repositioning of the thrombolytic catheter and restarting thrombolysis again. Patient continues to have extremely mottled left lower extremity from the knee down, the foot is cold, no palpable pulses noted in the feet bilaterally. Even the right foot now seems to be mottled and cold. That is being addressed by vascular surgery on the case. A shunt remains on heparin and he remains on thrombolytics via catheter which was repositioned today. WBC count is 11 hemoglobin 13.6. Electrolytes and renal profile are normal. Liver enzymes are noted to be slightly elevated. AST is 447. Patient remains on the COVID-19 cocktail for his underlying COVID-19 pneumonia. And hypoxic respiratory failure. Remains on Decadron at 60 mg IV push daily. Objective - Vital Signs Vital signs: Vital Signs Temp 99.5 F 05/01/21 12:00 Pulse 91 05/01/21 14:00 Resp 17 05/01/21 14:00 BP 99/69 05/01/21 14:00 Pulse Ox 88 L 05/01/21 13:00 Intake & Output 04/30/21 05/01/21 05/01/21 18:59 06:59 18:59 Intake Total 4224.583 8990.012 1409.902 Output Total 1730 470 340 Balance -95.042 0174.884 8209.902 Weight 78 kg 78 kg Intake: IV 1180 1045 1040 0.9% NS @10mL/hr 40 110 80 Alteplase 10 mg In Sodium 120 60 Chloride 0.9% 100 ml @ 1 MG/HR 10 mls/hr IV .Q10H ONE Rx#:[id number] Coolant NS @ 35 ml/hr 420 385 280 Heparin Sod,Pork in 0.45% 120 110 80 NaCl 25,000 unit In 0.45 % NaCl 1 250ml.bag @ 5 mls/hr IV .Q24H [facility]ENIA Rx#: [id number] Potassium Chloride 10 meq 200 In Water For Injection 1 100ml.bag @ 100 mls/hr IVPB Q1H [facility] Rx#: [id number] Sodium Chloride 0.9% 1, 480 440 320 000 ml @ 40 mls/hr IV . Q24H [facility] Rx#:[id number] Intake, IV Titration 234.958 280.012 109.902 Amount fentaNYL (PF). 1,000 mcg 80.012 35.295 In Sodium Chloride 0.9% 80 ml @ 0.5 MCG/KG/HR 3. 856 mls/hr IV .Q24H [facility]ENIA Rx#:[id number] propofoL 1,000 mg In 234.958 200 74.607 Empty Bag 1 bag @ Titrate IV .Q0M [facility] Rx#: [id number] Tube Feeding 160 270 230 Other 60 180 30 Output: Urine 1730 470 340 Other: Voiding Method Indwelling Catheter Indwelling Catheter Indwelling Catheter ABP, PAP, CO, CI - Last Documented Arterial Blood Pressure 82/65 - Exam General appearance: 66-year-old white male intubated and mechanically ventilated. Head exam: Atraumatic, normocephalic. Eye exam: Blood, EOMI, anicteric, no neck masses, no JVD. ENT exam: Dry mucous membranes. Throat is clear. Neck exam: Supple no neck masses no JVD. Respiratory exam: Symmetrical chest expansion crackles at the bases. Cardiovascular Exam: S1-S2, no S3 gallop. GI/Abdominal exam: Soft nontender no megaly no rebound. Cath stent noted in the right groin. Extremities exam: Right groin thrombolytic catheter is noted, however both feet are cold to touch, and mottled, no palpable pulses bilaterally. Neurological exam: Could not be assessed, patient is fully sedated, mechanically ventilated. Psychiatric exam: Did not assess. Skin exam: No rashes. - Labs CBC & Chem 7: 05/01/21 03:30 05/01/21 03:30 Labs: Abnormal Lab Results - Last 24 Hours (Table) 04/30/21 04/30/21 05/01/21 Range/Units 15:08 21:08 03:30 WBC 11.0 H (3.8-10.6) k/uL Neutrophils # 10.2 H (1.3-7.7) k/uL Lymphocytes # 0.4 L (1.0-4.8) k/uL PT (9.0-12.0) sec INR (<1.2) APTT 74.3 H 86.4 H (22.0-30.0) sec ABG pO2 (83-108) mmHg ABG Total CO2 (19-24) mmol/L ABG O2 Saturation (94-97) % Chloride (98-107) mmol/L Carbon Dioxide (22-30) mmol/L Creatinine (0.66-1.25) mg/dL Glucose (74-99) mg/dL Calcium (8.4-10.2) mg/dL AST (17-59) U/L ALT (4-49) U/L Albumin (3.5-5.0) g/dL 05/01/21 05/01/21 05/01/21 Range/Units 03:30 03:30 03:30 WBC (3.8-10.6) k/uL Neutrophils # (1.3-7.7) k/uL Lymphocytes # (1.0-4.8) k/uL PT 12.5 H (9.0-12.0) sec INR 1.2 H (<1.2) APTT 75.7 H (22.0-30.0) sec ABG pO2 (83-108) mmHg ABG Total CO2 (19-24) mmol/L ABG O2 Saturation (94-97) % Chloride 110 H (98-107) mmol/L Carbon Dioxide 21 L (22-30) mmol/L Creatinine 0.62 L (0.66-1.25) mg/dL Glucose 130 H (74-99) mg/dL Calcium 7.4 L (8.4-10.2) mg/dL AST 447 H (17-59) U/L ALT 62 H (4-49) U/L Albumin 2.6 L (3.5-5.0) g/dL 05/01/21 05/01/21 Range/Units 05:24 11:04 WBC (3.8-10.6) k/uL Neutrophils # (1.3-7.7) k/uL Lymphocytes # (1.0-4.8) k/uL PT (9.0-12.0) sec INR (<1.2) APTT 36.8 H (22.0-30.0) sec ABG pO2 53 L* (83-108) mmHg ABG Total CO2 27 H (19-24) mmol/L ABG O2 Saturation 89.2 L (94-97) % Chloride (98-107) mmol/L Carbon Dioxide (22-30) mmol/L Creatinine (0.66-1.25) mg/dL Glucose (74-99) mg/dL Calcium (8.4-10.2) mg/dL AST (17-59) U/L ALT (4-49) U/L Albumin (3.5-5.0) g/dL Microbiology - Last 24 Hours (Table) 04/30/21 05:00 Gram Stain - Preliminary Sputum Sputum Culture - Preliminary 04/30/21 05:10 Urine Culture - Preliminary Urine,Catheterized Assessment and Plan Assessment: Pression: Acute hypoxic respiratory failure secondary to acute COVID-19 pneumonia, outside the window for remdesivir Acute left lower extremity ischemia with arterial thrombosis as noted above. Requiring surgical intervention by vascular surgery, remains presently on heparin and on thrombolytics. Acute kidney injury, improving this is secondary to COVID-19 infection. Bilateral lower extremities ischemia, being addressed by vascular surgery on the case. Recommendation: Continue ventilatory support, patient is still requiring relatively high FiO2 and high PEEP. Continue fentanyl, heparin, tPA, and propofol. Continue Decadron. Patient is out of the window for remdesivir , not a candidate for baricitinib 'as per pharmacy. We will continue to follow Patient is critically ill, critical care time is over 30 minutes Time with Patient: Greater than 30
[2021-05-01 17:35] LABS: Partial Thromboplastin Time 30.3 sec (22.0-30.0)
[2021-05-02] MEDS: fentaNYL (PF). 1,000 MCG in SODIUM CHLORIDE 0.9% 80 ML IV SCH ×3 (02:00→23:58)
[2021-05-02 02:58] LABS: Partial Thromboplastin Time 26.8 sec (22.0-30.0)
[2021-05-02] MEDS: SODIUM CHLORIDE 0.9% 1,000 ML IV SCH (04:30)
[2021-05-02 05:55] LABS: ABG Base Excess 1.1 mmol/L; ABG HCO3 26 mmol/L (21-25); ABG Oxygen Saturation 95.3 % (94-97); ABG PCO2 42 mmHg (35-45); ABG PO2 70 mmHg (83-108); ABG TCO2 27 mmol/L (19-24); Allen Test Performed? Yes
[2021-05-02 06:12] LABS: Partial Thromboplastin Time 25.4 sec (22.0-30.0)
[2021-05-02 06:16] LABS: Basophils % (A) 0 %; Eosinophils % (A) 0 %; HCT 40.8 % (39.0-53.0); HGB 12.8 gm/dL (13.0-17.5); Hypochromasia Slight; Lymphocytes # (A) 0.4 k/uL (1.0-4.8); Lymphocytes % (A) 4 %; MCH 31.4 pg (25.0-35.0); MCHC 31.5 g/dL (31.0-37.0); Mean Platelet Volume 10.4; Monocytes # (A) 0.5 k/uL (0-1.0); Monocytes % (A) 5 %; Neutrophils # (A) 9.1 k/uL (1.3-7.7); Neutrophils % (A) 90 %; Platelet Count 181 k/uL (150-450); RBC 4.09 m/uL (4.30-5.90); RDW 13.6 % (11.5-15.5); WBC 10.1 k/uL (3.8-10.6)
[2021-05-02 06:21] LABS: ALT 73 U/L (4-49); AST 373 U/L (17-59); African American GFR (CKD) >90 (>60 ml/min/1.73 sqM); Albumin 2.4 g/dL (3.5-5.0); Alkaline Phosphatase 74 U/L (38-126); Anion Gap 8 mmol/L; Blood Urea Nitrogen 19 mg/dL (9-20); Calcium 7.5 mg/dL (8.4-10.2); Carbon Dioxide 21 mmol/L (22-30); Chloride 112 mmol/L (98-107); Glucose 123 mg/dL (74-99); Non-African American GFR(CKD) >90 (>60 ml/min/1.73 sqM); Potassium 4.8 mmol/L (3.5-5.1); Sodium 141 mmol/L (137-145); Total Bilirubin 0.8 mg/dL (0.2-1.3); Total Protein 6.5 g/dL (6.3-8.2)
[2021-05-02 06:45] LABS: MCV 99.8 fL (80.0-100.0)
--- NOTE | 2021-05-02 08:58 | XR ---
EXAMINATION TYPE: XR chest 1V portable DATE OF EXAM: 05/02/2021 COMPARISON: 05/01/2021 HISTORY: Tube placement TECHNIQUE: Single frontal view of the chest is obtained. FINDINGS: ET and NG tube noted and there is a diffuse interstitial pattern with scattered areas of c onsolidation stable in appearance. Heart size stable. Hypertrophic and degenerative change of the spi ne. DIE [employer]TENANCE shunt catheter noted. No pneumothorax. IMPRESSION: Diffuse lung disease stable.
[2021-05-02 10:29] VITALS: BMI 25.5
[2021-05-02] MEDS: HEPARIN SOD,PORK IN 0.45% NACL 25,000 UNIT in 0.45% NACL 1 250ML.BAG IV SCH ×2 (10:36→13:01)
[2021-05-02 12:19] LABS: Partial Thromboplastin Time 26.6 sec (22.0-30.0)
[2021-05-02] MEDS: CHLORHEXIDINE GLUCONATE 15 ML CUP MUCOUS MEM SCH ×2 (12:36→21:53)
[2021-05-02] MEDS: CHOLECALCIFEROL 25 MCG (1000 IU) TABLET PO SCH (12:37)
[2021-05-02] MEDS: ASCORBIC ACID 500 MG TAB PO SCH (12:37)
[2021-05-02] MEDS: FAMOTIDINE 20 MG/2 ML VIAL IV SCH ×2 (12:37→21:52)
[2021-05-02] MEDS: DEXAMETHASONE SOD PHOSPHATE 10 MG/ML 1 ML VIAL IVP SCH (12:37)
[2021-05-02] MEDS: ZINC SULFATE 220 MG CAP PO SCH (12:37)
--- NOTE | 2021-05-02 13:22 | P.PN ---
Subjective Progress Note Date: 05/02/21 Principal diagnosis: Acute hypoxic referral failure secondary to COVID-19 pneumonia, acute left lower limb ischemia secondary to thrombosis of the left common femoral, profunda, valdez perficial femoral, popliteal, and tibial arteries. 66-year-old male patient presented to the hospital because of increased cough and shortness of breath in addition to some nausea and emesis. The patient was quite dehydrated. His appetite was poor. He was confirmed having a COVID 19 infection. The patient has been symptomatic over almost 2 weeks. This patient is not vaccinated. No reported fever. He has generalized weakness and myalgias. In the burst department, the patient was afebrile. Pulse ox initially was 85%. Currently he is on oxygen at 4 L per minute nasal cannula. The chest x-ray shows diffuse increased interstitial markings bilaterally consistent with pneumonia. The pulmonary vasculature is quite abundant. The patient also has a right lower lobe pulmonary infiltrate in the past that has improved on this current evaluation. A BUN of 56 with a creatinine of 1.8 con sistent with an acute kidney injury, sodium level was 133, there was evidence of mild transaminitis with an AST of 129, ALT of 62, The patient is seen today 04/28/2021 in follow-up on the regular medical floor. He is currently resting in bed. Laying flat. No worsening shortness of breath, cough or congestion. His requiring 6 L high flow nasal cannula to maintain O2 saturations in the mid 90s. He is afebrile. Hemodynamically stable. White count 6.6. Hemoglobin 14.1. Lymphocytes 0.47. D-dimer 1.36. Sodium 135. Potassium 4.2. Creatinine 1.0. Glucose 170. LDH 546. C-reactive protein 5.3. Pro-calcitonin 0.29. He is continued on Lovenox, Decadron, vitamin supplements. The patient is seen today 04/29/2021 in follow-up on the regular medical floor. He is seen resting comfortably in bed. Awake and alert in no acute distress. He is currently on 7 L high flow nasal cannula to maintain O2 saturations in the low 90s. He's been afebrile. Hemodynamically stable. Chest x-ray reveals diffuse interstitial airspace disease no significant change from previous on 04/27/2021. D-dimer 1.84. Sodium 135. Potassium 3.6. Creatinine 0.7. LDH 46. C-reactive protein 2.20. He is continued on Decadron, Lovenox, vitamin supplements. Reevaluated today on 04/30/21, patient remains in the ICU, patient is on assist control rate of 24, tidal volume is 400 FiO2 on the percent PEEP of 5. ABG showed a pO2 of 59 pCO2 of 35 pH of 7.40. Patient is on propofol at 45, fentanyl at 0.5 mcg/kg/h, heparin 500 units per hour, he is also on TPA via ekos catheter. Early this morning, the patient developed an acute ischemic event involving the left lower extremity and he had complete loss of pulses with cool left lower extremity. Patient was started on heparin drip, he was seen by vas cular surgery, underwent scanning, and he underwent intubation and mechanical ventilation as he was getting extremely agitated. Patient had a mottled left lower extremity, and there was no Doppler signal from the groin to the foot. At any rate the patient was evaluated by vascular and he underwent selective left lower extremity angiogram, placement of thrombolytic catheter and initiation of ekos thrombolysis. Then he was later sent back to the ICU, and seems to be doing relatively well considering the new events. WBC count today is 18.9 hemoglobin 14.7. D-dimer is 1.84 went up to 34. Asymptomatic metabolic profile is normal renal profile is normal LDH is 486 and C-reactive protein is 2.20 chest x-ray showed bilateral infiltrates however right seems to be more involved than left Reevaluated today on 05/01/2021, patient remains in the ICU, intubated, and mechanically ventilated. Patient is now on assist control rate of 24 tidal volume of 400 FiO2 70% PEEP of 14. His ABG showed a pO2 of 53, pCO2 of 40 pH of 7.41. Hence the PEEP was increased to 16. Patient remains on propofol at 55 but grams per kilo per minute, is also on fentanyl at 1.3 mcg/kg per hour. Patient had to go back to the cardiac catheterization lab, and he underwent repositioning of the thrombolytic catheter and restarting thrombolysis again. Patient continues to have extremely mottled left lower extremity from the knee down, the foot is cold, no palpable pulses noted in the feet bilaterally. Even the right foot now seems to be mottled and cold. That is being addressed by vascular surgery on the case. A shunt remains on heparin and he remains on thrombolytics via catheter which was repositioned today. WBC count is 11 hemoglobin 13.6. Electrolytes and renal profile are normal. Liver enzymes are noted to be slightly elevated. AST is 447. Patient remains on the COVID-19 cocktail for his underlying COVID-19 pneumonia. And hypoxic respiratory failure. Remains on Decadron at 60 mg IV push daily. Reevaluated today on 05/02/2021, patient remains intubated mechanically ventilated, he is an assist-control rate of 24. Tidal volume 400 FiO2 50% PEEP of 16 remains on propofol at 40 mcg/kg/m she is also on fentanyl at 20 mcg/kg/h. He is also on enteral feeding using vital AF, he is up to goal. Patient underwent vascular surgery procedure today, he underwent thrombectomy and fasciotomy of the left lower extremity. Continues to have cold feet bilaterally, and hardly any pulses in both of his feet. This is being addressed by vascular surgery, patient is on heparin. His WBC count is 10.1 hemoglobin is 12.8, ABG today showed a pO2 of 70 pCO2 42 pH of 7.40. Electrodes are normal. Renal profile is normal. Objective - Vital Signs Vital signs: Vital Signs Temp 98.5 F 05/02/21 12:00 Pulse 75 05/02/21 12:30 Resp 24 05/02/21 12:30 BP 95/62 05/02/21 12:30 Pulse Ox 92 L 05/02/21 12:30 Intake & Output 05/01/21 05/02/21 05/02/21 18:59 06:59 18:59 Intake Total 2287.334 2086 602.370 Output Total 570 520 560 Balance 2306.368 7198 42.370 Weight 78.4 kg 78.4 kg Intake: IV 1440 1140 305 0.9% NS @10mL/hr 120 120 50 Alteplase 10 mg In Sodium 80 Chloride 0.9% 100 ml @ 1 MG/HR 10 mls/hr IV .Q10H [facility] Rx#:[id number] Coolant NS @ 35 ml/hr 420 420 35 Heparin Sod,Pork in 0.45% 120 120 10 NaCl 25,000 unit In 0.45 % NaCl 1 250ml.bag @ 5 mls/hr IV .Q24H [facility] Rx#: [id number] Potassium Chloride 10 meq 200 In Water For Injection 1 100ml.bag @ 100 mls/hr IVPB Q1H [facility] Rx#: [id number] Sodium Chloride 0.9% 1, 480 480 160 000 ml @ 40 mls/hr IV . Q24H [facility] Rx#:[id number] Intake, IV Titration 397.334 400 229.370 Amount Alteplase 10 mg In Sodium 69.833 Chloride 0.9% 100 ml @ 1 MG/HR 10 mls/hr IV .Q10H [facility] Rx#:[id number] Heparin Sod,Pork in 0.45% 114.5 NaCl 25,000 unit In 0.45 % NaCl 1 250ml.bag @ 5 mls/hr IV .Q24H [facility] Rx#: [id number] fentaNYL (PF). 1,000 mcg 82.074 100 85.705 In Sodium Chloride 0.9% 80 ml @ 0.5 MCG/KG/HR 3. 856 mls/hr IV .Q24H [facility] Rx#:[id number] propofoL 1,000 mg In 245.427 300 29.165 Empty Bag 1 bag @ Titrate IV .Q0M [facility] Rx#: [id number] Tube Feeding 390 456 68 Other 60 90 Output: Urine 570 520 560 Other: Voiding Method Indwelling Catheter Indwelling Catheter ABP, PAP, CO, CI - Last Documented Arterial Blood Pressure 82/65 - Exam General appearance: 66-year-old white male intubated and mechanically ventilated. Head exam: Atraumatic, normocephalic. Eye exam: Blood, EOMI, anicteric, no neck masses, no JVD. ENT exam: Dry mucous membranes. Throat is clear. Neck exam: Supple no neck masses no JVD. Respiratory exam: Symmetrical chest expansion crackles at the bases. Cardiovascular Exam: S1-S2, no S3 gallop. GI/Abdominal exam: Soft nontender no megaly no rebound. Cath stent noted in the right groin. Extremities exam: both feet are cold to touch, and mottled, no palpable pulses bilaterally. Surgical dressing noted in the mid calf region on the left lower extremity. Neurological exam: Could not be assessed, patient is fully sedated, mechanically ventilated. Psychiatric exam: Did not assess. Skin exam: No rashes. - Labs CBC & Chem 7: 05/02/21 05:07 05/02/21 05:07 Labs: Abnormal Lab Results - Last 24 Hours (Table) 05/01/21 05/02/21 05/02/21 Range/Units 17:01 05:07 05:07 RBC 4.09 L (4.30-5.90) m/uL Hgb 12.8 L (13.0-17.5) gm/dL Neutrophils # 9.1 H (1.3-7.7) k/uL Lymphocytes # 0.4 L (1.0-4.8) k/uL APTT 30.3 H (22.0-30.0) sec ABG pO2 (83-108) mmHg ABG HCO3 (21-25) mmol/L ABG Total CO2 (19-24) mmol/L Chloride 112 H (98-107) mmol/L Carbon Dioxide 21 L (22-30) mmol/L Glucose 123 H (74-99) mg/dL Calcium 7.5 L (8.4-10.2) mg/dL AST 373 H (17-59) U/L ALT 73 H (4-49) U/L Albumin 2.4 L (3.5-5.0) g/dL 05/02/21 Range/Units 05:50 RBC (4.30-5.90) m/uL Hgb (13.0-17.5) gm/dL Neutrophils # (1.3-7.7) k/uL Lymphocytes # (1.0-4.8) k/uL APTT (22.0-30.0) sec ABG pO2 70 L (83-108) mmHg ABG HCO3 26 H (21-25) mmol/L ABG Total CO2 27 H (19-24) mmol/L Chloride (98-107) mmol/L Carbon Dioxide (22-30) mmol/L Glucose (74-99) mg/dL Calcium (8.4-10.2) mg/dL AST (17-59) U/L ALT (4-49) U/L Albumin (3.5-5.0) g/dL Microbiology - Last 24 Hours (Table) 04/30/21 05:00 Gram Stain - Final Sputum Sputum Culture - Final 04/30/21 05:10 Urine Culture - Final Urine,Catheterized Assessment and Plan Assessment: Pression: Acute hypoxic respiratory failure secondary to acute COVID-19 pneumonia, outside the window for remdesivir Acute left lower extremity ischemia with arterial thrombosis as noted above. Requiring surgical intervention by vascular surgery, remains presently on heparin and on thrombolytics. Acute kidney injury, improving this is secondary to COVID-19 infection. Bilateral lower extremities ischemia, being addressed by vascular surgery on the case. Recommendation: Continue ventilatory support, patient is still requiring relatively high FiO2 and high PEEP. Continue fentanyl, heparin, tPA, and propofol. Continue Decadron. Patient is out of the window for remdesivir , not a candidate for baricitinib 'as per pharmacy. We will continue to follow Vascular surgery is addressing his lower extremity ischemia. Please refer to operative report from vascular surgery in the last few days, no operative report noted on the chart from today. Patient is critically ill, critical care time is over 30 minutes Time with Patient: Greater than 30
--- NOTE | 2021-05-02 13:24 | IR ---
EXAMINATION TYPE: IR fire captain femoral popliteal DATE OF EXAM: 05/02/2021 COMPARISON: NONE HISTORY: Fluoroscopy time. Fluoroscopy was provided to the referring clinician.
--- NOTE | 2021-05-02 14:10 | P.OP ---
Date of Procedure: 05/02/21 Description of Procedure: Preoperative diagnosis: Left lower extremity acute limb ischemia, covid19, previous thrombolytics Postoperative diagnosis: Same Procedure: [Left lower extremity angiogram via existing catheter Left lower extremity angiogram third order to anterior tibial artery Suction thrombectomy with 8 penumbra Percutaneous transluminal balloon angioplasty 6 x 1 50 superficial femoral artery Compartment fasciotomy left lower extremity] Surgeon: Tashia Feldman D.O. EBL: [100 mL] IV fluids: [See records] Urine output: [See records] Drains: [None] Complications: [None immediately apparent,] Condition: [Critical] Operative indication and findings: [Patient is a 66-year-old male with acute limb ischemia and COVID with thrombus of his left lower extremity. He was initially started on TPA and at some point had a degree of resolution of his upper thigh. The catheter was advanced to the distal tibial vessels and thrombolysis was continued. He is back today for repeat imaging. Per nursing no issues or changes in his findings through the night] Procedure in detail: [The patient was taken to the special suite and placed in supine position on the table. The right groin was prepped and draped in usual sterile fashion a preprocedure timeout was performed and all parties in agreement.A wire was placed through the thrombolysis catheter and the catheter was removed. An angiogram was performed through the previously placed Up & Over 6-Jordanian sheath. There was visualization of the external iliac and common femoral artery without any further visualization of the superficial femoral artery or popliteal there was no visualized vessel in the infrapopliteal segment. At that point the sheath was upsized to an 8-Jordanian Up & Over catheter and 8 penumbra was utilized for suction thrombectomy through the superficial femoral and popliteal arteries. Repeat imaging showed some degree of improvement. There was flow through the superficial femoral artery. There was a point at the mid femoral artery that had either thrombus or a small area of dissection flap. A 6 x 1 50 balloon was insufflated for prolonged insufflation. Repeat imaging of the area in question showed significant improvement. Repeat images performed on the leg and there continue to be no evidence of any significance tibial outflow. This is thought to be due to compartment syndrome continuing lower extremity therefore that point the catheters and wires were removed. A iliofemoral angiogram on the right was performed and showed adequate placement of the femoral sheath. It was then changed out for a shorter sheath and an 8-Jordanian Angio-Seal was used with good hemostasis. Left lower extremity was then prepped and draped in usual sterile fashion. Starting on the lateral portion intermuscular groove was identified with palpation. Incision was made overlying this and cut down to the level of the fascia. A transverse incision was made to connect the anterior and lateral compartments and using a Metzenbaum scissors the fascia was opened longitudinally for each compartment. There was still some tautness at the level of the skin therefore the skin incision was enlarged. There was significant bulging of the muscle. The lateral compartment had no contractile pulsatility with electrocautery. There was some degree of contractility of the anterior compartment at this time. The muscle appeared dusky. Attention was then turned towards the medial aspect. An incision was made just posterior to the tibial shell and carried down through the subcutaneous tissue to the fascia. The fascia was opened through its course in longitudinal fashion and dissection bluntly was carried down to the deep compartment to allow for release again the muscle appeared dusky with no significant contractility. Dressings were placed. The patient was sent back to ICU in critical condition. The likelihood is the patient will end up requiring a left above-knee amputation. Will discuss with ICU for timing.
[2021-05-02] MEDS: HEPARIN SODIUM 1,000 UN/ML (10ML VL) IV PRN (23:48)
--- NOTE | 2021-05-03 00:46 | P.PN ---
Subjective Progress Note Date: 05/01/21 Principal diagnosis: acute hypoxic respiratory failure secondary to COVID-19 pneumonia Patient is a 66-year-old male with a known history of ongoing nicotine addiction presents to ER with complaints of generalized weakness, nausea vomiting and shortness of. Patient states that he has been having poor appetite and symptoms for the past 2 weeks. Patient felt very weak. Pressure points were COVID-19 infection. Patient is not vaccinated. Denies any complaints of fever or ch ills. No complaints of chest pain. Minimal cough without any sputum production. On admission pulse ox 85% on room air. Chest x-ray showed improving right lower lobe pneumonia. Diffuse increased lung markings are developing bilaterally. Correlate for atypical pneumonia. EKG showed normal sinus rhythm. Laboratory showed lymphocyte 0.6 WBC 6.8 hemoglobin 16.2 and platelets 281 and D-dimer level is 1.04 Sodium 133 potassium 3.6 chloride 100 bicarb is 21 BUN 56 and creatinine 1.81 Blood sugar is 108 AST 129 ALT 62 alk phos 101 LDH 05/30/2004 CRP 4.9 and proBNP 208 Coronavirus PCR detected. 04/28/2021 Patient is currently resting in the bed. Requiring oxygen at 6 L via nasal cannula. Denies any complaints of chest pain. No fever no chills. No nausea vomiting or abdominal pain or diarrhea. Laboratory data showed WBC 6.6 hemoglobin 14.1 and platelets 252 lymphocytes 0.479 D-dimer level is 1.36 sodium 135 potassium 4.2 BUN 27 creatinine improved to 1.0. LDH 546 and CRP 5.3. Patient is being current IV hydration with normal saline at 100 cc/h. Pulmonary is on board.. 04/29/2021 Patient is currently lying in the bed. Awake alert aware x3. Requiring oxygen 7 L via nasal cannula. Patient has been afebrile. Denies any chest pain. No nausea vomiting abdominal pain. Renal function normalized. Reduce IV fluids 40 cc/h. Laboratory data showed D-dimer 1.84 BUN 13 and creatinine 0.7 LDH 486 and CRP 2.2 Patient is being current dexamethasone Lovenox and multivitamins. Pulmonary on board. 04/30/2021 Patient is currently MICU. Around 2 AM last night patient suddenly developed s evere left leg pain 10 out of 10 in severity and noted that unable to palpate popliteal dorsalis pedis posterior tibial pulses of the left leg. Suspected acute left lower extremity arterial occlusion. CTA of the left lower activity was ordered and high intensity heparin infusion was started. Vascular surgery was consulted. Patient was also found to have mottling of the left lower extremity. Patient was taken to or and had ultrasound-guided right common femoral artery access and selective left lower extremity angiogram was done. Status post thrombolytic catheter and initiation of [place] thrombolysis. His respiratory status also worsened and was intubated. Transferred to MICU. Patient is currently on the ventilator. Laboratory data showed WBC 18.9 hemoglobin 14.7 and platelets 168 INR 1.4 d-dimer was greater than 34 BUN 9 and creatinine 0.67 potassium 3.5. Total bilirubin level is 1.5 AST 77 ALT 39 and alk phos 114 albumin 3.1. Patient is being continued on dexamethasone heparin drip and multivitamins for COVID-19 pneumonia. Chest x-ray this morning showed pulmonary edema which is significantly increased compared to yesterday. 05/01/2021 Patient is in the MICU remains on mechanical ventilator. Patient underwent angiogram of the left lower extremity via existing sheath. Repositioning of the thrombolytic catheter and restarting thrombolysis. EKOS is being continued on. Laboratory data showed WBC 11.0 hemoglobin 13.6 and platelets 154 INR 1.2 Sodium 140 potassium 3.8 chloride 110 BUN 17 and creatinine 0.62 blood sugar is 130 AST 447 and ALT 62 Patient is being continued on dexamethasone, heparin drip and multivitamins. NG tube in place. Pulmonary and vascular surgery is on board.Chest x-ray showed diffuse lung disease stable. Current medications reviewed. Objective - Vital Signs Vital signs: Vital Signs Temp 98.2 F 05/01/21 07:25 Pulse 0 L 05/01/21 07:25 Resp 34 H 05/01/21 09:00 BP 111/74 05/01/21 07:25 Pulse Ox 92 L 05/01/21 07:25 Intake & Output 04/30/21 05/01/21 05/01/21 18:59 06:59 18:59 Intake Total 2167.017 0989.012 367.721 Output Total 1730 470 120 Balance -95.042 1305.012 247.721 Weight 78 kg 78 kg Intake: IV 1180 1045 305 0.9% NS @10mL/hr 40 110 30 Alteplase 10 mg In Sodium 120 Chloride 0.9% 100 ml @ 1 MG/HR 10 mls/hr IV .Q10H [facility] Rx#:[id number] Coolant NS @ 35 ml/hr 420 385 105 Heparin Sod,Pork in 0.45% 120 110 30 NaCl 25,000 unit In 0.45 % NaCl 1 250ml.bag @ 5 mls/hr IV .Q24H [facility] Rx#: [id number] Sodium Chloride 0.9% 1, 480 440 120 000 ml @ 40 mls/hr IV . Q24H [facility] Rx#:[id number] Intake, IV Titration 234.958 280.012 32.721 Amount fentaNYL (PF). 1,000 mcg 80.012 27.378 In Sodium Chloride 0.9% 80 ml @ 0.5 MCG/KG/HR 3. 856 mls/hr IV .Q24H [facility] Rx#:[id number] propofoL 1,000 mg In 234.958 200 5.343 Empty Bag 1 bag @ Titrate IV .Q0M [facility] Rx#: [id number] Tube Feeding 160 270 30 Other 60 180 Output: Urine 1730 470 120 Other: Voiding Method Indwelling Catheter Indwelling Catheter Indwelling Catheter ABP, PAP, CO, CI - Last Documented Arterial Blood Pressure 82/65 - Exam PHYSICAL EXAMINATION: Patient is on mechanical ventilator and sedated.. HEENT: Normocephalic. Neck is supple. Pupils reactive. Nostrils clear. Oral cavity is moist. Neck reveals no JVD, carotid bruits, or thyromegaly. CHEST EXAMINATION: Trachea is central. Symmetrical expansion. ET tube in place. Bilateral coarse sounds. Minimal expiratory wheezing. CARDIAC: Normal S1, S2 with no gallops. No murmurs ABDOMEN: Soft. Bowel sounds normal. No organomegaly. No abdominal bruits. Extremities: reveal no edema. Left lower extremity mottling skin changes. Neurologically patient is currently on mechanical ventilator. Sedated. Gross No focal deficits noted Skin: No rash or skin lesions. Psychiatric: Could not be assessed this time. Musculoskeletal: No joint swelling or deformity. - Labs CBC & Chem 7: 05/02/21 05:07 05/02/21 05:07 Labs: Abnormal Lab Results - Last 24 Hours (Table) 04/30/21 04/30/21 04/30/21 Range/Units 08:30 15:08 21:08 WBC (3.8-10.6) k/uL Neutrophils # (1.3-7.7) k/uL Lymphocytes # (1.0-4.8) k/uL PT 14.3 H (9.0-12.0) sec INR 1.4 H (<1.2) APTT 74.3 H 86.4 H (22.0-30.0) sec D-Dimer >34.10 H (<0.60) mg/L FEU ABG pO2 (83-108) mmHg ABG Total CO2 (19-24) mmol/L ABG O2 Saturation (94-97) % Chloride (98-107) mmol/L Carbon Dioxide (22-30) mmol/L Creatinine (0.66-1.25) mg/dL Glucose (74-99) mg/dL Calcium (8.4-10.2) mg/dL AST (17-59) U/L ALT (4-49) U/L Albumin (3.5-5.0) g/dL 05/01/21 05/01/21 05/01/21 Range/Units 03:30 03:30 03:30 WBC 11.0 H (3.8-10.6) k/uL Neutrophils # 10.2 H (1.3-7.7) k/uL Lymphocytes # 0.4 L (1.0-4.8) k/uL PT (9.0-12.0) sec INR (<1.2) APTT 75.7 H (22.0-30.0) sec D-Dimer (<0.60) mg/L FEU ABG pO2 (83-108) mmHg ABG Total CO2 (19-24) mmol/L ABG O2 Saturation (94-97) % Chloride 110 H (98-107) mmol/L Carbon Dioxide 21 L (22-30) mmol/L Creatinine 0.62 L (0.66-1.25) mg/dL Glucose 130 H (74-99) mg/dL Calcium 7.4 L (8.4-10.2) mg/dL AST 447 H (17-59) U/L ALT 62 H (4-49) U/L Albumin 2.6 L (3.5-5.0) g/dL 12/07/21 Range/Units 05:24 WBC (3.8-10.6) k/uL Neutrophils # (1.3-7.7) k/uL Lymphocytes # (1.0-4.8) k/uL PT (9.0-12.0) sec INR (<1.2) APTT (22.0-30.0) sec D-Dimer (<0.60) mg/L FEU ABG pO2 53 L* (83-108) mmHg ABG Total CO2 27 H (19-24) mmol/L ABG O2 Saturation 89.2 L (94-97) % Chloride (98-107) mmol/L Carbon Dioxide (22-30) mmol/L Creatinine (0.66-1.25) mg/dL Glucose (74-99) mg/dL Calcium (8.4-10.2) mg/dL AST (17-59) U/L ALT (4-49) U/L Albumin (3.5-5.0) g/dL Microbiology - Last 24 Hours (Table) 04/30/21 05:00 Gram Stain - Preliminary Sputum Sputum Culture - Preliminary 04/30/21 05:10 Urine Culture - Preliminary Urine,Catheterized Assessment and Plan Assessment: Acute left lower reduction to be critical limb ischemia with 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 Initiated EKOS thrombolysis. Acute hypoxic respiratory failure secondary to COVID-19 infection. Currently on mechanical ventilator. Generalized weakness, nausea and vomiting secondary to COVID-19 infection COVID-19 pneumonia Elevated inflammatory markers Hypovolemic hyponatremia Acute kidney injury likely prerenal. improved. Ongoing nicotine addiction DVT prophylaxis with Lovenox subcu Plan: Patient is in the MICU. Initiated thrombolysis due to acute complete occlusion of left temporal artery at its origin..Thrombolytic catheter extended today. Continued on mechanical ventilation will continue with dexamethasone 6 mg IV push daily and multivitamins and Heparin IV. Pulmonary and vascular surgery on board.. Continue to follow closely. Time with Patient: Greater than 30
--- NOTE | 2021-05-03 00:50 | P.PN ---
Subjective Progress Note Date: 05/02/21 Principal diagnosis: acute hypoxic respiratory failure secondary to COVID-19 pneumonia Patient is a 66-year-old male with a known history of ongoing nicotine addiction presents to ER with complaints of generalized weakness, nausea vomiting and shortness of. Patient states that he has been having poor appetite and symptoms for the past 2 weeks. Patient felt very weak. Pressure points were COVID-19 infection. Patient is not vaccinated. Denies any complaints of fever or ch ills. No complaints of chest pain. Minimal cough without any sputum production. On admission pulse ox 85% on room air. Chest x-ray showed improving right lower lobe pneumonia. Diffuse increased lung markings are developing bilaterally. Correlate for atypical pneumonia. EKG showed normal sinus rhythm. Laboratory showed lymphocyte 0.6 WBC 6.8 hemoglobin 16.2 and platelets 281 and D-dimer level is 1.04 Sodium 133 potassium 3.6 chloride 100 bicarb is 21 BUN 56 and creatinine 1.81 Blood sugar is 108 AST 129 ALT 62 alk phos 101 LDH 05/30/2004 CRP 4.9 and proBNP 208 Coronavirus PCR detected. 04/28/2021 Patient is currently resting in the bed. Requiring oxygen at 6 L via nasal cannula. Denies any complaints of chest pain. No fever no chills. No nausea vomiting or abdominal pain or diarrhea. Laboratory data showed WBC 6.6 hemoglobin 14.1 and platelets 252 lymphocytes 0.479 D-dimer level is 1.36 sodium 135 potassium 4.2 BUN 27 creatinine improved to 1.0. LDH 546 and CRP 5.3. Patient is being current IV hydration with normal saline at 100 cc/h. Pulmonary is on board.. 04/29/2021 Patient is currently lying in the bed. Awake alert aware x3. Requiring oxygen 7 L via nasal cannula. Patient has been afebrile. Denies any chest pain. No nausea vomiting abdominal pain. Renal function normalized. Reduce IV fluids 40 cc/h. Laboratory data showed D-dimer 1.84 BUN 13 and creatinine 0.7 LDH 486 and CRP 2.2 Patient is being current dexamethasone Lovenox and multivitamins. Pulmonary on board. 04/30/2021 Patient is currently MICU. Around 2 AM last night patient suddenly developed s evere left leg pain 10 out of 10 in severity and noted that unable to palpate popliteal dorsalis pedis posterior tibial pulses of the left leg. Suspected acute left lower extremity arterial occlusion. CTA of the left lower activity was ordered and high intensity heparin infusion was started. Vascular surgery was consulted. Patient was also found to have mottling of the left lower extremity. Patient was taken to or and had ultrasound-guided right common femoral artery access and selective left lower extremity angiogram was done. Status post thrombolytic catheter and initiation of [place] thrombolysis. His respiratory status also worsened and was intubated. Transferred to MICU. Patient is currently on the ventilator. Laboratory data showed WBC 18.9 hemoglobin 14.7 and platelets 168 INR 1.4 d-dimer was greater than 34 BUN 9 and creatinine 0.67 potassium 3.5. Total bilirubin level is 1.5 AST 77 ALT 39 and alk phos 114 albumin 3.1. Patient is being continued on dexamethasone heparin drip and multivitamins for COVID-19 pneumonia. Chest x-ray this morning showed pulmonary edema which is significantly increased compared to yesterday. 05/01/2021 Patient is in the MICU remains on mechanical ventilator. Patient underwent angiogram of the left lower extremity via existing sheath. Repositioning of the thrombolytic catheter and restarting thrombolysis. EKOS is being continued on. Laboratory data showed WBC 11.0 hemoglobin 13.6 and platelets 154 INR 1.2 Sodium 140 potassium 3.8 chloride 110 BUN 17 and creatinine 0.62 blood sugar is 130 AST 447 and ALT 62 Patient is being continued on dexamethasone, heparin drip and multivitamins. NG tube in place. Pulmonary and vascular surgery is on board.Chest x-ray showed diffuse lung disease stable. 05/02/2021 Patient remains on mechanical ventilator. FiO2 400 AC 400 with FiO2 50% and PEEP of 16. Sedated. Patient is being continued on tube feeding. Vascular surgery is following. Patient underwent thrombectomy and fasciotomy of the left lower extremity. Left lower extremity continues to be cold. Patient remains on heparin drip. EKOS on hold. Laboratory showed WBC 10.1 hemoglobin 12.8 and platelets 181 Sodium 141 potassium 4.8 chloride 112 bicarb is 21 BUN 19 and creatinine 0.66 AST 373 and ALT 73 Pulmonary vascular surgery is on board. Current medications reviewed. Objective - Vital Signs Vital signs: Vital Signs Temp 98.5 F 05/02/21 12:00 Pulse 79 05/02/21 19:00 Resp 24 12/08/21 19:00 BP 104/69 05/02/21 19:00 Pulse Ox 95 05/02/21 19:00 Intake & Output 05/02/21 05/02/21 05/03/21 06:59 18:59 06:59 Intake Total 2086 962.370 60 Output Total 520 915 35 Balance 1566 47.370 25 Weight 78.4 kg 78.4 kg Intake: IV 1140 545 40 0.9% NS @10mL/hr 120 50 Coolant NS @ 35 ml/hr 420 35 Heparin Sod,Pork in 0.45% 120 10 NaCl 25,000 unit In 0.45 % NaCl 1 250ml.bag @ 5 mls/hr IV .Q24H YESENIA Rx#: [id number] Sodium Chloride 0.9% 1, 480 400 40 000 ml @ 40 mls/hr IV . Q24H YESENIA Rx#:[id number] Intake, IV Titration 400 229.370 Amount Heparin Sod,Pork in 0.45% 114.5 NaCl 25,000 unit In 0.45 % NaCl 1 250ml.bag @ 5 mls/hr IV .Q24H YESENIA Rx#: [id number] fentaNYL (PF). 1,000 mcg 100 85.705 In Sodium Chloride 0.9% 80 ml @ 0.5 MCG/KG/HR 3. 856 mls/hr IV .Q24H YESENIA Rx#:[id number] propofoL 1,000 mg In 300 29.165 Empty Bag 1 bag @ Titrate IV .Q0M YESENIA Rx#: [id number] Tube Feeding 456 188 20 Other 90 Output: Urine 520 915 35 Other: Voiding Method Indwelling Catheter Indwelling Catheter ABP, PAP, CO, CI - Last Documented Arterial Blood Pressure 82/65 - Exam PHYSICAL EXAMINATION: Patient is on mechanical ventilator and sedated.. HEENT: Normocephalic. Neck is supple. Pupils reactive. Nostrils clear. Oral cavity is moist. Neck reveals no JVD, carotid bruits, or thyromegaly. CHEST EXAMINATION: Trachea is central. Symmetrical expansion. ET tube in place. Bilateral coarse sounds. Minimal expiratory wheezing. CARDIAC: Normal S1, S2 with no gallops. No murmurs ABDOMEN: Soft. Bowel sounds normal. No organomegaly. No abdominal bruits. Extremities: reveal no edema. Left lower extremity mottling skin changes. Neurologically patient is currently on mechanical ventilator. Sedated. Gross No focal deficits noted Skin: No rash or skin lesions. Psychiatric: Could not be assessed this time. Musculoskeletal: No joint swelling or deformity. - Labs CBC & Chem 7: 05/02/21 05:07 05/02/21 05:07 Labs: Abnormal Lab Results - Last 24 Hours (Table) 05/02/21 05/02/21 05/02/21 Range/Units 05:07 05:07 05:50 RBC 4.09 L (4.30-5.90) m/uL Hgb 12.8 L (13.0-17.5) gm/dL Neutrophils # 9.1 H (1.3-7.7) k/uL Lymphocytes # 0.4 L (1.0-4.8) k/uL ABG pO2 70 L (83-108) mmHg ABG HCO3 26 H (21-25) mmol/L ABG Total CO2 27 H (19-24) mmol/L Chloride 112 H (98-107) mmol/L Carbon Dioxide 21 L (22-30) mmol/L Glucose 123 H (74-99) mg/dL Calcium 7.5 L (8.4-10.2) mg/dL AST 373 H (17-59) U/L ALT 73 H (4-49) U/L Albumin 2.4 L (3.5-5.0) g/dL Microbiology - Last 24 Hours (Table) 04/30/21 05:00 Gram Stain - Final Sputum Sputum Culture - Final Assessment and Plan Assessment: Acute left lower reduction to be critical limb ischemia with 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 Initiated EKOS thrombolysis. Acute hypoxic respiratory failure secondary to COVID-19 infection. Currently on mechanical ventilator. Generalized weakness, nausea and vomiting secondary to COVID-19 infection COVID-19 pneumonia Elevated inflammatory markers Hypovolemic hyponatremia Acute kidney injury likely prerenal. improved. Ongoing nicotine addiction DVT prophylaxis with Lovenox subcu Plan: Patient is in the MICU. Initiated thrombolysis due to acute complete occlusion of left temporal artery at its origin..Thrombolytic catheter extended . Patient underwent left lower extremity thrombectomy and fasciotomy today. Continued on mechanical ventilation will continue with dexamethasone 6 mg IV push daily and multivitamins and Heparin IV. Pulmonary and vascular surgery on board.. Continue to follow closely. Time with Patient: Greater than 30
[2021-05-03] MEDS: SODIUM CHLORIDE 0.9% 1,000 ML IV SCH ×2 (03:30→18:57)
[2021-05-03 05:38] LABS: ABG HCO3 25 mmol/L (21-25); ABG Oxygen Saturation 96.1 % (94-97); ABG PCO2 42 mmHg (35-45); ABG PH 7.38 (7.35-7.45); ABG PO2 75 mmHg (83-108); ABG TCO2 26 mmol/L (19-24); Allen Test Performed? Yes
[2021-05-03 06:49] LABS: African American GFR (CKD) >90 (>60 ml/min/1.73 sqM); Albumin 2.5 g/dL (3.5-5.0); Anion Gap 6 mmol/L; Carbon Dioxide 22 mmol/L (22-30); Chloride 112 mmol/L (98-107); Glucose 133 mg/dL (74-99); Non-African American GFR(CKD) >90 (>60 ml/min/1.73 sqM); Sodium 140 mmol/L (137-145); Total Protein 6.4 g/dL (6.3-8.2)
[2021-05-03 06:50] LABS: Basophils % (A) 0 %; Eosinophils % (A) 0 %; HCT 37.3 % (39.0-53.0); HGB 12.1 gm/dL (13.0-17.5); Hypochromasia Slight; Lymphocytes # (A) 0.5 k/uL (1.0-4.8); Lymphocytes % (A) 4 %; MCH 32.8 pg (25.0-35.0); MCHC 32.5 g/dL (31.0-37.0); MCV 100.9 fL (80.0-100.0); Macrocytosis Slight; Mean Platelet Volume 9.8; Monocytes # (A) 0.6 k/uL (0-1.0); Monocytes % (A) 4 %; Neutrophils # (A) 11.7 k/uL (1.3-7.7); Neutrophils % (A) 90 %; Platelet Count 265 k/uL (150-450); RDW 14.1 % (11.5-15.5); WBC 13.1 k/uL (3.8-10.6)
[2021-05-03 06:51] LABS: ALT 82 U/L (4-49); AST 383 U/L (17-59); Alkaline Phosphatase 66 U/L (38-126); Blood Urea Nitrogen 27 mg/dL (9-20); Calcium 7.6 mg/dL (8.4-10.2); Total Bilirubin 0.8 mg/dL (0.2-1.3)
[2021-05-03] MEDS: ASCORBIC ACID 500 MG TAB PO SCH (07:49)
[2021-05-03] MEDS: DEXAMETHASONE SOD PHOSPHATE 10 MG/ML 1 ML VIAL IVP SCH (07:49)
[2021-05-03] MEDS: CHOLECALCIFEROL 25 MCG (1000 IU) TABLET PO SCH (07:49)
[2021-05-03] MEDS: ZINC SULFATE 220 MG CAP PO SCH (07:49)
[2021-05-03] MEDS: HEPARIN SOD,PORK IN 0.45% NACL 25,000 UNIT in 0.45% NACL 1 250ML.BAG IV SCH (07:50)
[2021-05-03] MEDS: FAMOTIDINE 20 MG/2 ML VIAL IV SCH ×2 (07:50→21:02)
[2021-05-03] MEDS: CHLORHEXIDINE GLUCONATE 15 ML CUP MUCOUS MEM SCH ×2 (07:50→21:02)
--- NOTE | 2021-05-03 08:39 | XR ---
EXAMINATION TYPE: XR chest 1V portable DATE OF EXAM: 05/03/2021 COMPARISON: 05/02/2021 HISTORY: Shortness of breath TECHNIQUE: Single frontal view of the chest is obtained. FINDINGS: ET and NG tube noted and there is a diffuse interstitial pattern with scattered areas of c onsolidation stable in appearance. Heart size stable. Hypertrophic and degenerative change of the spi ne. WATER QUALITY TESTER shunt catheter noted. No pneumothorax. IMPRESSION: Stable diffuse bilateral lung disease
[2021-05-03] MEDS: fentaNYL (PF). 1,000 MCG in SODIUM CHLORIDE 0.9% 80 ML IV SCH (11:32)
--- NOTE | 2021-05-03 12:29 | P.PN ---
Subjective Progress Note Date: 05/03/21 This is 66-year-old male who remains in the ICU who is currently sedated and intubated. Patient has Covid 19, has had left lower extremity acute limb ischemia with previous thrombolytics and yesterday underwent left lower extremity angiogram third order to anterior tibial artery, suction thrombectomy, percutaneous transluminal balloon angioplasty SFA as well as compartment fasciotomy of the left lower extremity. Today's labs WBC 13.1 hemoglobin 12.1. Patient is on IV heparin drip. He had moderate amount of bleeding from the fasciotomy sites through the night. Dressing was soaked this morning. Objective - Vital Signs Vital signs: Vital Signs Temp 97.7 F 05/03/21 04:00 Pulse 75 05/03/21 07:00 Resp 24 05/03/21 07:00 BP 102/73 05/03/21 07:00 Pulse Ox 95 05/03/21 07:00 Intake & Output 05/02/21 05/03/21 05/03/21 18:59 06:59 18:59 Intake Total 7537.822 7732.947 157.991 Output Total 915 570 30 Balance 147.370 660.947 127.991 Weight 78.4 kg Intake: IV 545 480 40 0.9% NS @10mL/hr 50 Coolant NS @ 35 ml/hr 35 Heparin Sod,Pork in 0.45% 10 NaCl 25,000 unit In 0.45 % NaCl 1 250ml.bag @ 5 mls/hr IV .Q24H [facility] Rx#: [id number] Sodium Chloride 0.9% 1, 400 480 40 000 ml @ 40 mls/hr IV . Q24H [facility] Rx#:[id number] Intake, IV Titration 329.370 380.947 87.991 Amount Heparin Sod,Pork in 0.45% 101.606 87.991 NaCl 25,000 unit In 0.45 % NaCl 1 250ml.bag @ 12 UNITS/KG/HR 9.408 mls/hr IV .Q24H YESENIA Rx#: [id number] Heparin Sod,Pork in 0.45% 114.5 NaCl 25,000 unit In 0.45 % NaCl 1 250ml.bag @ 5 mls/hr IV .Q24H YES[facility]IA Rx#: [id number] fentaNYL (PF). 1,000 mcg 85.705 100 In Sodium Chloride 0.9% 80 ml @ 0.5 MCG/KG/HR 3. 856 mls/hr IV .Q24H [facility] Rx#:[id number] propofoL 1,000 mg In 129.165 179.341 Empty Bag 1 bag @ Titrate IV .Q0M [facility] Rx#: [id number] Tube Feeding 188 280 30 Other 90 Output: Urine 915 570 30 Other: Voiding Method Indwelling Catheter Indwelling Catheter ABP, PAP, CO, CI - Last Documented Arterial Blood Pressure 82/65 - Exam General appearance: The patient is alert, oriented, in no acute distress. HET: Head is normocephalic and atraumatic. Pupils are equal and reactive. Oropharynx is clear without lesions. Neck: Supple without lymphadenopathy. Trachea midline. Heart: S1 S2. Regular rate and rhythm. Lungs: On mechanical ventilation. Extremities: Left lower extremity warm to the touch to his cath. Fasciotomy sites with small to moderate amount of bleeding. Left foot cool to the touch. Unable to get a posterior tibialis or dorsalis pedis Doppler signal. Able to obtain bilateral femoral and popliteal Doppler signals. Right lower extremity foot cold to touch with mottling. Unable to obtain a dorsalis pedis or posterior tibialis Doppler signal. Neurological: Sedated on mechanical ventilation. - Labs CBC & Chem 7: 05/04/21 04:38 05/04/21 04:38 Labs: Abnormal Lab Results - Last 24 Hours (Table) 05/02/21 05/03/21 05/03/21 Range/Units 21:27 05:36 05:51 WBC 13.1 H (3.8-10.6) k/uL RBC 3.70 L (4.30-5.90) m/uL Hgb 12.1 L (13.0-17.5) gm/dL Hct 37.3 L (39.0-53.0) % MCV 100.9 H (80.0-100.0) fL Neutrophils # 11.7 H (1.3-7.7) k/uL Lymphocytes # 0.5 L (1.0-4.8) k/uL APTT 39.7 H (22.0-30.0) sec ABG pO2 75 L (83-108) mmHg ABG Total CO2 26 H (19-24) mmol/L Chloride (98-107) mmol/L BUN (9-20) mg/dL Glucose (74-99) mg/dL Calcium (8.4-10.2) mg/dL AST (17-59) U/L ALT (4-49) U/L Albumin (3.5-5.0) g/dL 05/03/21 05/03/21 Range/Units 05:51 05:51 WBC (3.8-10.6) k/uL RBC (4.30-5.90) m/uL Hgb (13.0-17.5) gm/dL Hct (39.0-53.0) % MCV (80.0-100.0) fL Neutrophils # (1.3-7.7) k/uL Lymphocytes # (1.0-4.8) k/uL APTT 63.7 H (22.0-30.0) sec ABG pO2 (83-108) mmHg ABG Total CO2 (19-24) mmol/L Chloride 112 H (98-107) mmol/L BUN 27 H (9-20) mg/dL Glucose 133 H (74-99) mg/dL Calcium 7.6 L (8.4-10.2) mg/dL AST 383 H (17-59) U/L ALT 82 H (4-49) U/L Albumin 2.5 L (3.5-5.0) g/dL Microbiology - Last 24 Hours (Table) 04/30/21 05:00 Gram Stain - Final Sputum Sputum Culture - Final Assessment and Plan Assessment: 1. Postop day #1 of left lower extremity angiogram third order to anterior tibial artery with suction thrombectomy, percutaneous alone angioplasty of the SFA and compartment fasciotomy of the left lower extremity 2. Status post thrombolytics for critical limb ischemia due to arterial occlus ion 3. Acute left lower extremity critical limb ischemia thrombosis of left common femoral, profunda, superficial femoral and popliteal and tibial arteries 4. Acute right lower extremity ischemia 5. Covid-19 pneumonia 6. VDRF secondary to Covid Plan: 1. Continue ICU management 2. Continue symptomatic and supportive care 3. Wet-to-dry dressing change to left lower extremity fasciotomy sites daily and as needed 4. Plan is to move forward with a left [id number] amputation, possible [id number] amputation on Friday 5. Hold heparin drip at midnight Friday into Friday 6. Further recommendations forthcoming from vascular surgeon pending clinical course Thank you for this consultation, we will continue to follow The impression and plan of care has been dictated as directed. Dr. Feldman I performed a history and examination of this patient, discussed the same with the dictator. I agree with the dictator's note ,documented as a scribe. Any additional findings or plans will be noted.
--- NOTE | 2021-05-03 13:31 | P.PN ---
Subjective Progress Note Date: 05/03/21 Principal diagnosis: Acute hypoxic referral failure secondary to COVID-19 pneumonia, acute left lower limb ischemia secondary to thrombosis of the left common femoral, profunda, valdez perficial femoral, popliteal, and tibial arteries. 66-year-old male patient presented to the hospital because of increased cough and shortness of breath in addition to some nausea and emesis. The patient was quite dehydrated. His appetite was poor. He was confirmed having a COVID 19 infection. The patient has been symptomatic over almost 2 weeks. This patient is not vaccinated. No reported fever. He has generalized weakness and myalgias. In the burst department, the patient was afebrile. Pulse ox initially was 85%. Currently he is on oxygen at 4 L per minute nasal cannula. The chest x-ray shows diffuse increased interstitial markings bilaterally consistent with pneumonia. The pulmonary vasculature is quite abundant. The patient also has a right lower lobe pulmonary infiltrate in the past that has improved on this current evaluation. A BUN of 56 with a creatinine of 1.8 con sistent with an acute kidney injury, sodium level was 133, there was evidence of mild transaminitis with an AST of 129, ALT of 62, The patient is seen today 04/28/2021 in follow-up on the regular medical floor. He is currently resting in bed. Laying flat. No worsening shortness of breath, cough or congestion. His requiring 6 L high flow nasal cannula to maintain O2 saturations in the mid 90s. He is afebrile. Hemodynamically stable. White count 6.6. Hemoglobin 14.1. Lymphocytes 0.47. D-dimer 1.36. Sodium 135. Potassium 4.2. Creatinine 1.0. Glucose 170. LDH 546. C-reactive protein 5.3. Pro-calcitonin 0.29. He is continued on Lovenox, Decadron, vitamin supplements. The patient is seen today 04/29/2021 in follow-up on the regular medical floor. He is seen resting comfortably in bed. Awake and alert in no acute distress. He is currently on 7 L high flow nasal cannula to maintain O2 saturations in the low 90s. He's been afebrile. Hemodynamically stable. Chest x-ray reveals diffuse interstitial airspace disease no significant change from previous on 04/27/2021. D-dimer 1.84. Sodium 135. Potassium 3.6. Creatinine 0.7. LDH 46. C-reactive protein 2.20. He is continued on Decadron, Lovenox, vitamin supplements. Reevaluated today on 04/30/21, patient remains in the ICU, patient is on assist control rate of 24, tidal volume is 400 FiO2 on the percent PEEP of 5. ABG showed a pO2 of 59 pCO2 of 35 pH of 7.40. Patient is on propofol at 45, fentanyl at 0.5 mcg/kg/h, heparin 500 units per hour, he is also on TPA via ekos catheter. Early this morning, the patient developed an acute ischemic event involving the left lower extremity and he had complete loss of pulses with cool left lower extremity. Patient was started on heparin drip, he was seen by vas cular surgery, underwent scanning, and he underwent intubation and mechanical ventilation as he was getting extremely agitated. Patient had a mottled left lower extremity, and there was no Doppler signal from the groin to the foot. At any rate the patient was evaluated by vascular and he underwent selective left lower extremity angiogram, placement of thrombolytic catheter and initiation of ekos thrombolysis. Then he was later sent back to the ICU, and seems to be doing relatively well considering the new events. WBC count today is 18.9 hemoglobin 14.7. D-dimer is 1.84 went up to 34. Asymptomatic metabolic profile is normal renal profile is normal LDH is 486 and C-reactive protein is 2.20 chest x-ray showed bilateral infiltrates however right seems to be more involved than left Reevaluated today on 05/01/2021, patient remains in the ICU, intubated, and mechanically ventilated. Patient is now on assist control rate of 24 tidal volume of 400 FiO2 70% PEEP of 14. His ABG showed a pO2 of 53, pCO2 of 40 pH of 7.41. Hence the PEEP was increased to 16. Patient remains on propofol at 55 but grams per kilo per minute, is also on fentanyl at 1.3 mcg/kg per hour. Patient had to go back to the cardiac catheterization lab, and he underwent repositioning of the thrombolytic catheter and restarting thrombolysis again. Patient continues to have extremely mottled left lower extremity from the knee down, the foot is cold, no palpable pulses noted in the feet bilaterally. Even the right foot now seems to be mottled and cold. That is being addressed by vascular surgery on the case. A shunt remains on heparin and he remains on thrombolytics via catheter which was repositioned today. WBC count is 11 hemoglobin 13.6. Electrolytes and renal profile are normal. Liver enzymes are noted to be slightly elevated. AST is 447. Patient remains on the COVID-19 cocktail for his underlying COVID-19 pneumonia. And hypoxic respiratory failure. Remains on Decadron at 60 mg IV push daily. Reevaluated today on 05/02/2021, patient remains intubated mechanically ventilated, he is an assist-control rate of 24. Tidal volume 400 FiO2 50% PEEP of 16 remains on propofol at 40 mcg/kg/m she is also on fentanyl at 20 mcg/kg/h. He is also on enteral feeding using vital AF, he is up to goal. Patient underwent vascular surgery procedure today, he underwent thrombectomy and fasciotomy of the left lower extremity. Continues to have cold feet bilaterally, and hardly any pulses in both of his feet. This is being addressed by vascular surgery, patient is on heparin. His WBC count is 10.1 hemoglobin is 12.8, ABG today showed a pO2 of 70 pCO2 42 pH of 7.40. Electrodes are normal. Renal profile is normal. Reevaluated today on 05/13/2021, patient remains intubated and mechanically ventilated. He is on assist control rate of 24 tidal volume 400 FiO2 50% PEEP remains at 16 and I cut it down to 14 today. ABG today showed a pO2 of 75 pCO2 42 pH of 7.38. His electrolytes are normal bicarb is 22. BUN is 22 creatinine 0.75. Patient is still on propofol at 40 mcg/kg/m, he is still on heparin, and social on fentanyl at 1 mcg/kg/h. IV fluids at 40 mL per hour. WBC count is 13 .1 hemoglobin is 12.1. Chest x-ray continues to show bilateral infiltrates. Patient is being followed closely by vascular surgery, and the plan is to consider below-knee amputation on this patient sometime over the weekend. A shunt remains on enteral feeding. Patient is hemodynamically stable in spite of all the issues he has, and he is not requiring any pressors. Objective - Vital Signs Vital signs: Vital Signs Temp 97.2 F L 05/03/21 12:00 Pulse 77 05/03/21 13:00 Resp 24 05/03/21 13:00 BP 113/75 05/03/21 13:00 Pulse Ox 96 05/03/21 13:00 Intake & Output 05/02/21 05/03/21 05/03/21 18:59 06:59 18:59 Intake Total 1801.145 0780.947 827.182 Output Total 915 570 225 Balance 147.370 660.947 602.182 Weight 78.4 kg 78.4 kg Intake: IV 545 480 280 0.9% NS @10mL/hr 50 Coolant NS @ 35 ml/hr 35 Heparin Sod,Pork in 0.45% 10 NaCl 25,000 unit In 0.45 % NaCl 1 250ml.bag @ 5 mls/hr IV .Q24H YESENIA Rx#: [id number] Sodium Chloride 0.9% 1, 400 480 280 000 ml @ 40 mls/hr IV . Q24H YESENIA Rx#:[id number] Intake, IV Titration 329.370 380.947 277.182 Amount Heparin Sod,Pork in 0.45% 101.606 87.991 NaCl 25,000 unit In 0.45 % NaCl 1 250ml.bag @ 12 UNITS/KG/HR 9.408 mls/hr IV .Q24H YESENIA Rx#: [id number] Heparin Sod,Pork in 0.45% 114.5 NaCl 25,000 unit In 0.45 % NaCl 1 250ml.bag @ 5 mls/hr IV .Q24H [facility] Rx#: [id number] fentaNYL (PF). 1,000 mcg 85.705 100 89.191 In Sodium Chloride 0.9% 80 ml @ 0.5 MCG/KG/HR 3. 856 mls/hr IV .Q24H [facility]ENIA Rx#:[id number] propofoL 1,000 mg In 129.165 179.341 100 Empty Bag 1 bag @ Titrate IV .Q0M YESENIA Rx#: [id number] Tube Feeding 188 280 210 Other 90 60 Output: Urine 915 570 225 Other: Voiding Method Indwelling Catheter Indwelling Catheter Indwelling Catheter ABP, PAP, CO, CI - Last Documented Arterial Blood Pressure 82/65 - Exam General appearance: 66-year-old white male intubated and mechanically ventilated. Head exam: Atraumatic, normocephalic. Eye exam: Blood, EOMI, anicteric, no neck masses, no JVD. ENT exam: Dry mucous membranes. Throat is clear. Neck exam: Supple no neck masses no JVD. Respiratory exam: Symmetrical chest expansion crackles at the bases. Cardiovascular Exam: S1-S2, no S3 gallop. GI/Abdominal exam: Soft nontender no megaly no rebound. Cath stent noted in the right groin. Extremities exam: both feet are cold to touch, and mottled, no palpable pulses bilaterally. Surgical dressing noted in the mid calf region on the left lower extremity. Patient had pulses by Doppler in the popliteal area bilaterally. Neurological exam: Could not be assessed, patient is fully sedated, mechanically ventilated. Psychiatric exam: Did not assess. Skin exam: Mottled skin over the dorsal aspect of the right foot and no pulses in the right foot.. - Labs CBC & Chem 7: 05/03/21 05:51 05/03/21 05:51 Labs: Abnormal Lab Results - Last 24 Hours (Table) 05/02/21 05/03/21 05/03/21 Range/Units 21:27 05:36 05:51 WBC 13.1 H (3.8-10.6) k/uL RBC 3.70 L (4.30-5.90) m/uL Hgb 12.1 L (13.0-17.5) gm/dL Hct 37.3 L (39.0-53.0) % MCV 100.9 H (80.0-100.0) fL Neutrophils # 11.7 H (1.3-7.7) k/uL Lymphocytes # 0.5 L (1.0-4.8) k/uL APTT 39.7 H (22.0-30.0) sec ABG pO2 75 L (83-108) mmHg ABG Total CO2 26 H (19-24) mmol/L Chloride (98-107) mmol/L BUN (9-20) mg/dL Glucose (74-99) mg/dL Calcium (8.4-10.2) mg/dL AST (17-59) U/L ALT (4-49) U/L Albumin (3.5-5.0) g/dL 05/03/21 05/03/21 Range/Units 05:51 05:51 WBC (3.8-10.6) k/uL RBC (4.30-5.90) m/uL Hgb (13.0-17.5) gm/dL Hct (39.0-53.0) % MCV (80.0-100.0) fL Neutrophils # (1.3-7.7) k/uL Lymphocytes # (1.0-4.8) k/uL APTT 63.7 H (22.0-30.0) sec ABG pO2 (83-108) mmHg ABG Total CO2 (19-24) mmol/L Chloride 112 H (98-107) mmol/L BUN 27 H (9-20) mg/dL Glucose 133 H (74-99) mg/dL Calcium 7.6 L (8.4-10.2) mg/dL AST 383 H (17-59) U/L ALT 82 H (4-49) U/L Albumin 2.5 L (3.5-5.0) g/dL Microbiology - Last 24 Hours (Table) 04/30/21 05:00 Gram Stain - Final Sputum Sputum Culture - Final Assessment and Plan Assessment: Pression: Acute hypoxic respiratory failure secondary to acute COVID-19 pneumonia, outside the window for remdesivir Acute left lower extremity ischemia with arterial thrombosis as noted above. Requiring surgical intervention by vascular surgery, remains presently on heparin Acute kidney injury, improving this is secondary to COVID-19 infection. Bilateral lower extremities ischemia, being addressed by vascular surgery on the case. Recommendation: Continue ventilatory support, not ready for any weaning, I was able to cut down the PEEP to 14 FiO2 at 50% Continue fentanyl, heparin, and propofol. Continue Decadron. Patient is out of the window for remdesivir , not a candidate for baricitinib 'as per pharmacy. We will continue to follow Patient is scheduled to have BKA of the left lower extremity over the weekend. Remains critically ill. critical care time is over 30 minutes Time with Patient: Greater than 30
--- NOTE | 2021-05-04 00:46 | P.PN ---
Subjective Progress Note Date: 05/03/21 Principal diagnosis: acute hypoxic respiratory failure secondary to COVID-19 pneumonia Patient is a 66-year-old male with a known history of ongoing nicotine addiction presents to ER with complaints of generalized weakness, nausea vomiting and shortness of. Patient states that he has been having poor appetite and symptoms for the past 2 weeks. Patient felt very weak. Pressure points were COVID-19 infection. Patient is not vaccinated. Denies any complaints of fever or ch ills. No complaints of chest pain. Minimal cough without any sputum production. On admission pulse ox 85% on room air. Chest x-ray showed improving right lower lobe pneumonia. Diffuse increased lung markings are developing bilaterally. Correlate for atypical pneumonia. EKG showed normal sinus rhythm. Laboratory showed lymphocyte 0.6 WBC 6.8 hemoglobin 16.2 and platelets 281 and D-dimer level is 1.04 Sodium 133 potassium 3.6 chloride 100 bicarb is 21 BUN 56 and creatinine 1.81 Blood sugar is 108 AST 129 ALT 62 alk phos 101 LDH 05/30/2004 CRP 4.9 and proBNP 208 Coronavirus PCR detected. 04/28/2021 Patient is currently resting in the bed. Requiring oxygen at 6 L via nasal cannula. Denies any complaints of chest pain. No fever no chills. No nausea vomiting or abdominal pain or diarrhea. Laboratory data showed WBC 6.6 hemoglobin 14.1 and platelets 252 lymphocytes 0.479 D-dimer level is 1.36 sodium 135 potassium 4.2 BUN 27 creatinine improved to 1.0. LDH 546 and CRP 5.3. Patient is being current IV hydration with normal saline at 100 cc/h. Pulmonary is on board.. 04/29/2021 Patient is currently lying in the bed. Awake alert aware x3. Requiring oxygen 7 L via nasal cannula. Patient has been afebrile. Denies any chest pain. No nausea vomiting abdominal pain. Renal function normalized. Reduce IV fluids 40 cc/h. Laboratory data showed D-dimer 1.84 BUN 13 and creatinine 0.7 LDH 486 and CRP 2.2 Patient is being current dexamethasone Lovenox and multivitamins. Pulmonary on board. 04/30/2021 Patient is currently MICU. Around 2 AM last night patient suddenly developed s evere left leg pain 10 out of 10 in severity and noted that unable to palpate popliteal dorsalis pedis posterior tibial pulses of the left leg. Suspected acute left lower extremity arterial occlusion. CTA of the left lower activity was ordered and high intensity heparin infusion was started. Vascular surgery was consulted. Patient was also found to have mottling of the left lower extremity. Patient was taken to or and had ultrasound-guided right common femoral artery access and selective left lower extremity angiogram was done. Status post thrombolytic catheter and initiation of Ven[place] thrombolysis. His respiratory status also worsened and was intubated. Transferred to MICU. Patient is currently on the ventilator. Laboratory data showed WBC 18.9 hemoglobin 14.7 and platelets 168 INR 1.4 d-dimer was greater than 34 BUN 9 and creatinine 0.67 potassium 3.5. Total bilirubin level is 1.5 AST 77 ALT 39 and alk phos 114 albumin 3.1. Patient is being continued on dexamethasone heparin drip and multivitamins for COVID-19 pneumonia. Chest x-ray this morning showed pulmonary edema which is significantly increased compared to yesterday. 05/01/2021 Patient is in the MICU remains on mechanical ventilator. Patient underwent angiogram of the left lower extremity via existing sheath. Repositioning of the thrombolytic catheter and restarting thrombolysis. EKOS is being continued on. Laboratory data showed WBC 11.0 hemoglobin 13.6 and platelets 154 INR 1.2 Sodium 140 potassium 3.8 chloride 110 BUN 17 and creatinine 0.62 blood sugar is 130 AST 447 and ALT 62 Patient is being continued on dexamethasone, heparin drip and multivitamins. NG tube in place. Pulmonary and vascular surgery is on board.Chest x-ray showed diffuse lung disease stable. 05/02/2021 Patient remains on mechanical ventilator. FiO2 400 AC 400 with FiO2 50% and PEEP of 16. Sedated. Patient is being continued on tube feeding. Vascular surgery is following. Patient underwent thrombectomy and fasciotomy of the left lower extremity. Left lower extremity continues to be cold. Patient remains on heparin drip. EKOS on hold. Laboratory showed WBC 10.1 hemoglobin 12.8 and platelets 181 Sodium 141 potassium 4.8 chloride 112 bicarb is 21 BUN 19 and creatinine 0.66 AST 373 and ALT 73 Pulmonary vascular surgery is on board. 05/03/2021 Patient was admitted to the hospital acute hypoxic respiratory failure secondary to Covid pneumonia in developed left lower extremity critical limb ischemia due to arterial thrombus. Status post EKOS. Patient is in MICU. On mechanical ventilator. Tidal volume 400 cc and FiO2 50% and PEEP of 16. Laboratory showed WBC 13.1 hemoglobin 12.1 and platelets 265 Sodium 140 potassium 5.0 chloride 112 BUN 27 creatinine 0.75 blood sugar 133 calcium 7.6 and ALT 82 AST 383 alk phos 66. Vascular surgery is considering below amputation of the left lower extremity. Chest x-ray showed stable diffuse bilateral lung disease. Current medications reviewed. Objective - Vital Signs Vital signs: Vital Signs Temp 98.1 F 05/03/21 16:00 Pulse 78 05/03/21 16:00 Resp 24 05/03/21 16:00 BP 93/61 05/03/21 16:00 Pulse Ox 96 05/03/21 16:00 Intake & Output 05/02/21 05/03/21 05/03/21 18:59 06:59 18:59 Intake Total 1874.882 3205.947 1109.182 Output Total 915 570 435 Balance 147.370 660.947 674.182 Weight 78.4 kg 78.4 kg Intake: IV 545 480 400 0.9% NS @10mL/hr 50 Coolant NS @ 35 ml/hr 35 Heparin Sod,Pork in 0.45% 10 NaCl 25,000 unit In 0.45 % NaCl 1 250ml.bag @ 5 mls/hr IV .Q24H [facility] Rx#: [id number] Sodium Chloride 0.9% 1, 400 480 400 000 ml @ 40 mls/hr IV . Q24H [facility] Rx#:[id number] Intake, IV Titration 329.370 380.947 277.182 Amount Heparin Sod,Pork in 0.45% 101.606 87.991 NaCl 25,000 unit In 0.45 % NaCl 1 250ml.bag @ 12 UNITS/KG/HR 9.408 mls/hr IV .Q24H [facility] Rx#: [id number] Heparin Sod,Pork in 0.45% 114.5 NaCl 25,000 unit In 0.45 % NaCl 1 250ml.bag @ 5 mls/hr IV .Q24H [facility] Rx#: [id number] fentaNYL (PF). 1,000 mcg 85.705 100 89.191 In Sodium Chloride 0.9% 80 ml @ 0.5 MCG/KG/HR 3. 856 mls/hr IV .Q24H [facility] Rx#:[id number] propofoL 1,000 mg In 129.165 179.341 100 Empty Bag 1 bag @ Titrate IV .Q0M [facility] Rx#: [id number] Tube Feeding 188 280 342 Other 90 90 Output: Urine 915 570 435 Other: Voiding Method Indwelling Catheter Indwelling Catheter Indwelling Catheter ABP, PAP, CO, CI - Last Documented Arterial Blood Pressure 82/65 - Exam PHYSICAL EXAMINATION: Patient is on mechanical ventilator and sedated.. HEENT: Normocephalic. Neck is supple. Pupils reactive. Nostrils clear. Oral cavity is moist. Neck reveals no JVD, carotid bruits, or thyromegaly. CHEST EXAMINATION: Trachea is central. Symmetrical expansion. ET tube in place. Bilateral coarse sounds. no wheezing. CARDIAC: Normal S1, S2 with no gallops. No murmurs ABDOMEN: Soft. Bowel sounds normal. No organomegaly. No abdominal bruits. Extremities: reveal no edema. Left lower extremity mottling skin changes. Surgical site bandaged. Neurologically patient is currently on mechanical ventilator. Sedated. Gross No focal deficits noted Skin: No rash or skin lesions. Psychiatric: Could not be assessed this time. Musculoskeletal: No joint swelling or deformity. - Labs CBC & Chem 7: 05/03/21 05:51 05/03/21 05:51 Labs: Abnormal Lab Results - Last 24 Hours (Table) 05/02/21 05/03/21 05/03/21 Range/Units 21:27 05:36 05:51 WBC 13.1 H (3.8-10.6) k/uL RBC 3.70 L (4.30-5.90) m/uL Hgb 12.1 L (13.0-17.5) gm/dL Hct 37.3 L (39.0-53.0) % MCV 100.9 H (80.0-100.0) fL Neutrophils # 11.7 H (1.3-7.7) k/uL Lymphocytes # 0.5 L (1.0-4.8) k/uL APTT 39.7 H (22.0-30.0) sec ABG pO2 75 L (83-108) mmHg ABG Total CO2 26 H (19-24) mmol/L Chloride (98-107) mmol/L BUN (9-20) mg/dL Glucose (74-99) mg/dL Calcium (8.4-10.2) mg/dL AST (17-59) U/L ALT (4-49) U/L Albumin (3.5-5.0) g/dL 05/03/21 05/03/21 Range/Units 05:51 05:51 WBC (3.8-10.6) k/uL RBC (4.30-5.90) m/uL Hgb (13.0-17.5) gm/dL Hct (39.0-53.0) % MCV (80.0-100.0) fL Neutrophils # (1.3-7.7) k/uL Lymphocytes # (1.0-4.8) k/uL APTT 63.7 H (22.0-30.0) sec ABG pO2 (83-108) mmHg ABG Total CO2 (19-24) mmol/L Chloride 112 H (98-107) mmol/L BUN 27 H (9-20) mg/dL Glucose 133 H (74-99) mg/dL Calcium 7.6 L (8.4-10.2) mg/dL AST 383 H (17-59) U/L ALT 82 H (4-49) U/L Albumin 2.5 L (3.5-5.0) g/dL Assessment and Plan Assessment: Acute left lower reduction to be critical limb ischemia with 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 s/p EKOS thrombolysis. Acute hypoxic respiratory failure secondary to COVID-19 infection. Currently on mechanical ventilator. Generalized weakness, nausea and vomiting secondary to COVID-19 infection COVID-19 pneumonia Elevated inflammatory markers Hypovolemic hyponatremia Acute kidney injury likely prerenal. improved. Ongoing nicotine addiction DVT prophylaxis with Lovenox subcu Plan: Patient is in the MICU. Initiated thrombolysis due to acute complete occlusion of left temporal artery at its origin..s/p EKOS Thrombolytic catheter extended on 05/01, Patient underwent fasciotomy on 05/02/2021. Without much improvement in circulation vascular surgery is considering left BKA. Continued on mechanical ventilation will continue with dexamethasone 6 mg IV push daily and multivitamins and Heparin IV. Pulmonary and vascular surgery on board.. Continue to follow closely. Time with Patient: Greater than 30
[2021-05-04] MEDS: fentaNYL (PF). 1,000 MCG in SODIUM CHLORIDE 0.9% 80 ML IV SCH ×2 (01:20→10:15)
[2021-05-04 04:54] LABS: Basophils % (A) 0 %; Eosinophils # (A) 0.1 k/uL (0-0.7); Eosinophils % (A) 0 %; HCT 32.2 % (39.0-53.0); HGB 10.6 gm/dL (13.0-17.5); Hypochromasia Slight; Lymphocytes # (A) 0.7 k/uL (1.0-4.8); Lymphocytes % (A) 5 %; MCH 33.6 pg (25.0-35.0); MCHC 33.1 g/dL (31.0-37.0); MCV 101.6 fL (80.0-100.0); Macrocytosis Slight; Mean Platelet Volume 9.7; Monocytes # (A) 0.6 k/uL (0-1.0); Monocytes % (A) 4 %; Neutrophils # (A) 14.1 k/uL (1.3-7.7); Neutrophils % (A) 89 %; Platelet Count 300 k/uL (150-450); RBC 3.17 m/uL (4.30-5.90); RDW 14.1 % (11.5-15.5); WBC 15.8 k/uL (3.8-10.6)
[2021-05-04] MEDS: HEPARIN SODIUM 1,000 UN/ML (10ML VL) IV PRN (05:18)
[2021-05-04 05:28] LABS: ALT 91 U/L (4-49); AST 325 U/L (17-59); African American GFR (CKD) >90 (>60 ml/min/1.73 sqM); Albumin 2.3 g/dL (3.5-5.0); Alkaline Phosphatase 68 U/L (38-126); Anion Gap 5 mmol/L; Blood Urea Nitrogen 39 mg/dL (9-20); Calcium 7.5 mg/dL (8.4-10.2); Carbon Dioxide 21 mmol/L (22-30); Chloride 114 mmol/L (98-107); Glucose 145 mg/dL (74-99); Non-African American GFR(CKD) >90 (>60 ml/min/1.73 sqM); Potassium 4.9 mmol/L (3.5-5.1); Sodium 140 mmol/L (137-145); Total Bilirubin 0.5 mg/dL (0.2-1.3)
[2021-05-04 05:55] LABS: ABG Base Excess -0.9 mmol/L; ABG HCO3 24 mmol/L (21-25); ABG PCO2 40 mmHg (35-45); ABG PH 7.39 (7.35-7.45); ABG PO2 69 mmHg (83-108); ABG TCO2 25 mmol/L (19-24); Allen Test Performed? Yes
[2021-05-04] MEDS: HEPARIN SOD,PORK IN 0.45% NACL 25,000 UNIT in 0.45% NACL 1 250ML.BAG IV SCH (06:19)
[2021-05-04] MEDS: ASCORBIC ACID 500 MG TAB PO SCH (08:34)
[2021-05-04] MEDS: CHOLECALCIFEROL 25 MCG (1000 IU) TABLET PO SCH (08:34)
[2021-05-04] MEDS: ZINC SULFATE 220 MG CAP PO SCH (08:34)
[2021-05-04] MEDS: DEXAMETHASONE SOD PHOSPHATE 10 MG/ML 1 ML VIAL IVP SCH (08:34)
[2021-05-04] MEDS: CHLORHEXIDINE GLUCONATE 15 ML CUP MUCOUS MEM SCH (08:34)
[2021-05-04] MEDS: FAMOTIDINE 20 MG/2 ML VIAL IV SCH (08:35)
--- NOTE | 2021-05-04 11:24 | P.PN ---
Subjective Progress Note Date: 05/04/21 This is 66-year-old male who remains in the ICU who is currently sedated and intubated. Patient has Covid 19, has had left lower extremity acute limb ischemia with previous thrombolytics and underwent left lower extremity angiogram third order to anterior tibial artery, suction thrombectomy, percutaneous transluminal balloon angioplasty SFA as well as compartment fasciotomy of the left lower extremity. Patient remains on IV heparin drip. No acute changes through the night. According to the ICU nurse she spoke to the patient's daughter who stated she may consider making the patient comfort care a nd will decide by later today. Objective - Vital Signs Vital signs: Vital Signs Temp 99.2 F 05/04/21 04:00 Pulse 96 05/04/21 07:00 Resp 20 05/04/21 07:00 BP 107/69 05/04/21 07:00 Pulse Ox 96 05/04/21 07:00 Intake & Output 05/03/21 05/04/21 05/04/21 18:59 06:59 18:59 Intake Total 2039.785 2121.571 84 Output Total 495 725 40 Balance 882.182 860.571 44 Weight 78.4 kg Intake: IV 480 480 40 Sodium Chloride 0.9% 1, 480 480 40 000 ml @ 40 mls/hr IV . Q24H [facility] Rx#:[id number] Intake, IV Titration 377.182 487.571 Amount Heparin Sod,Pork in 0.45% 87.991 248.371 NaCl 25,000 unit In 0.45 % NaCl 1 250ml.bag @ 12 UNITS/KG/HR 9.408 mls/hr IV .Q24H [facility] Rx#: [id number] fentaNYL (PF). 1,000 mcg 89.191 100 In Sodium Chloride 0.9% 80 ml @ 0.5 MCG/KG/HR 3. 856 mls/hr IV .Q24H [facility] Rx#:[id number] propofoL 1,000 mg In 200 139.2 Empty Bag 1 bag @ Titrate IV .Q0M [facility] Rx#: [id number] Tube Feeding 430 528 44 Other 90 90 Output: Urine 495 725 40 Other: Voiding Method Indwelling Catheter Indwelling Catheter ABP, PAP, CO, CI - Last Documented Arterial Blood Pressure 82/65 - Exam General appearance: The patient is alert, oriented, in no acute distress. HET: Head is normocephalic and atraumatic. Pupils are equal and reactive. Oropharynx is clear without lesions. Neck: Supple without lymphadenopathy. Trachea midline. Heart: S1 S2. Regular rate and rhythm. Lungs: On mechanical ventilation. Extremities: Left lower extremity warm to the touch to his calf. Fasciotomy sites with serosanguineous drainage. Left foot cool to the touch. Unable to get a posterior tibialis or dorsalis pedis Doppler signal bilaterally. Able to obtain bilateral femoral and popliteal Doppler signals. Right lower extremity foot cold to touch with mottling. Right leg pale and and cold to touch up to knee. Neurological: Sedated on mechanical ventilation. - Labs CBC & Chem 7: 05/04/21 04:38 05/04/21 04:38 Labs: Abnormal Lab Results - Last 24 Hours (Table) 05/04/21 05/04/21 05/04/21 Range/Units 04:38 04:38 04:38 WBC 15.8 H (3.8-10.6) k/uL RBC 3.17 L (4.30-5.90) m/uL Hgb 10.6 L (13.0-17.5) gm/dL Hct 32.2 L (39.0-53.0) % MCV 101.6 H (80.0-100.0) fL Neutrophils # 14.1 H (1.3-7.7) k/uL Lymphocytes # 0.7 L (1.0-4.8) k/uL APTT 37.2 H (22.0-30.0) sec ABG pO2 (83-108) mmHg ABG Total CO2 (19-24) mmol/L Chloride 114 H (98-107) mmol/L Carbon Dioxide 21 L (22-30) mmol/L BUN 39 H (9-20) mg/dL Glucose 145 H (74-99) mg/dL Calcium 7.5 L (8.4-10.2) mg/dL AST 325 H (17-59) U/L ALT 91 H (4-49) U/L Total Protein 6.0 L (6.3-8.2) g/dL Albumin 2.3 L (3.5-5.0) g/dL 05/04/21 Range/Units 05:50 WBC (3.8-10.6) k/uL RBC (4.30-5.90) m/uL Hgb (13.0-17.5) gm/dL Hct (39.0-53.0) % MCV (80.0-100.0) fL Neutrophils # (1.3-7.7) k/uL Lymphocytes # (1.0-4.8) k/uL APTT (22.0-30.0) sec ABG pO2 69 L (83-108) mmHg ABG Total CO2 25 H (19-24) mmol/L Chloride (98-107) mmol/L Carbon Dioxide (22-30) mmol/L BUN (9-20) mg/dL Glucose (74-99) mg/dL Calcium (8.4-10.2) mg/dL AST (17-59) U/L ALT (4-49) U/L Total Protein (6.3-8.2) g/dL Albumin (3.5-5.0) g/dL Assessment and Plan Assessment: 1. Postop day #2 of left lower extremity angiogram third order to anterior tibial artery with suction thrombectomy, percutaneous alone angioplasty of the SFA and compartment fasciotomy of the left lower extremity 2. Status post thrombolytics for critical limb ischemia due to arterial occlus ion 3. Acute left lower extremity critical limb ischemia thrombosis of left common femoral, profunda, superficial femoral and popliteal and tibial arteries 4. Acute right lower extremity ischemia 5. Covid-19 pneumonia 6. VDRF secondary to Covid Plan: 1. Continue ICU management 2. Continue symptomatic and supportive care 3. Wet-to-dry dressing change to left lower extremity fasciotomy sites daily and as needed 4. Plan is to move forward with a left [id number] amputation, possible [id number] amputation on Friday, unless daughter makes decision to change patient to comfort care. 5. Hold heparin drip at midnight Friday into Friday 6. NPO after midnight 7. Further recommendations forthcoming from vascular surgeon pending clinical course Thank you for this consultation, we will continue to follow The impression and plan of care has been dictated as directed. Dr. Feldman I performed a history and examination of this patient, discussed the same with the dictator. I agree with the dictator's note ,documented as a scribe. Any additional findings or plans will be noted.
--- NOTE | 2021-05-04 12:23 | P.PN ---
Subjective Progress Note Date: 05/04/21 acute hypoxic respiratory failure secondary to COVID-19 pneumonia Patient is a 66-year-old male with a known history of ongoing nicotine addiction presents to ER with complaints of generalized weakness, nausea vomiting and shortness of. Patient states that he has been having poor appetite and symptoms for the past 2 weeks. Patient felt very weak. Pressure points were COVID-19 infection. Patient is not vaccinated. Denies any complaints of fever or chills. No complaints of chest pain. Minimal cough without any sputum production. On admission pulse ox 85% on room air. Chest x-ray showed improving right lower lobe pneumonia. Diffuse increased lung markings are developing bilaterally. Correlate for atypical pneumonia. EKG showed normal sinus rhythm. Laboratory showed lymphocyte 0.6 WBC 6.8 hemoglobin 16.2 and platelets 281 and D-dimer level is 1.04 Sodium 133 potassium 3.6 chloride 100 bicarb is 21 BUN 56 and creatinine 1.81 Blood sugar is 108 AST 129 ALT 62 alk phos 101 LDH 05/30/2004 CRP 4.9 and proBNP 208 Coronavirus PCR detected. 04/28/2021 Patient is currently resting in the bed. Requiring oxygen at 6 L via nasal cannula. Denies any complaints of chest pain. No fever no chills. No nausea vomiting or abdominal pain or diarrhea. Laboratory data showed WBC 6.6 hemoglobin 14.1 and platelets 252 lymphocytes 0.479 D-dimer level is 1.36 sodium 135 potassium 4.2 BUN 27 creatinine improved to 1.0. LDH 546 and CRP 5.3. Patient is being current IV hydration with normal saline at 100 cc/h. Pulmonary is on board.. 04/29/2021 Patient is currently lying in the bed. Awake alert aware x3. Requiring oxygen 7 L via nasal cannula. Patient has been afebrile. Denies any chest pain. No nausea vomiting abdominal pain. Renal function normalized. Reduce IV fluids 40 cc/h. Laboratory data showed D-dimer 1.84 BUN 13 and creatinine 0.7 LDH 486 and CRP 2.2 Patient is being current dexamethasone Lovenox and multivitamins. Pulmonary on board. 04/30/2021 Patient is currently MICU. Around 2 AM last night patient suddenly developed severe left leg pain 10 out of 10 in severity and noted that unable to palpate popliteal dorsalis pedis posterior tibial pulses of the left leg. Suspected acute left lower extremity arterial occlusion. CTA of the left lower activity was ordered and high intensity heparin infusion was started. Vascular surgery was consulted. Patient was also found to have mottling of the left lower extremity. Patient was taken to or and had ultrasound-guided right common femoral artery access and selective left lower extremity angiogram was done. Status post thrombolytic catheter and initiation of [place] thrombolysis. His respiratory status also worsened and was intubated. Transferred to MICU. Patient is currently on the ventilator. Laboratory data showed WBC 18.9 hemoglobin 14.7 and platelets 168 INR 1.4 d-dimer was greater than 34 BUN 9 and creatinine 0.67 potassium 3.5. Total bilirubin level is 1.5 AST 77 ALT 39 and alk phos 114 albumin 3.1. Patient is being continued on dexamethasone heparin drip and multivitamins for COVID-19 pneumonia. Chest x-ray this morning showed pulmonary edema which is significantly increased compared to yesterday. 05/01/2021 Patient is in the MICU remains on mechanical ventilator. Patient underwent angiogram of the left lower extremity via existing sheath. Repositioning of the thrombolytic catheter and restarting thrombolysis. EKOS is being continued on. Laboratory data showed WBC 11.0 hemoglobin 13.6 and platelets 154 INR 1.2 Sodium 140 potassium 3.8 chloride 110 BUN 17 and creatinine 0.62 blood sugar is 130 AST 447 and ALT 62 Patient is being continued on dexamethasone, heparin drip and multivitamins. NG tube in place. Pulmonary and vascular surgery is on board.Chest x-ray showed diffuse lung disease stable. 05/02/2021 Patient remains on mechanical ventilator. FiO2 400 AC 400 with FiO2 50% and PEEP of 16. Sedated. Patient is being continued on tube feeding. Vascular surgery is following. Patient underwent thrombectomy and fasciotomy of the left lower extremity. Left lower extremity continues to be cold. Patient remains on heparin drip. EKOS on hold. Laboratory showed WBC 10.1 hemoglobin 12.8 and platelets 181 Sodium 141 potassium 4.8 chloride 112 bicarb is 21 BUN 19 and creatinine 0.66 AST 373 and ALT 73 Pulmonary vascular surgery is on board. 05/03/2021 Patient was admitted to the hospital acute hypoxic respiratory failure secondary to Covid pneumonia in developed left lower extremity critical limb ischemia due to arterial thrombus. Status post EKOS. Patient is in MICU. On mechanical ventilator. Tidal volume 400 cc and FiO2 50% and PEEP of 16. Laboratory showed WBC 13.1 hemoglobin 12.1 and platelets 265 Sodium 140 potassium 5.0 chloride 112 BUN 27 creatinine 0.75 blood sugar 133 calcium 7.6 and ALT 82 AST 383 alk phos 66. Vascular surgery is considering below amputation of the left lower extremity. Chest x-ray showed stable diffuse bilateral lung disease. 05/04/2021 Patient is seen and evaluated and follow-up continues to be in the ICU being closely monitored. Patient remains on mechanical ventilation intubated and sedated. FiO2 is 50%. Vascular surgery along with pulmonary power system engineer following and plans are for possible left lower extremity amputation and continued on IV heparin. Heparin to be held this evening if family continues to proceed with surgical intervention. Per nursing staff family is discussing further about possible comfort care measures only. Patient continues on vitamin and zinc supplements along with IV dexamethasone and continues on sedation of propofol and fentanyl. Labs: WBC is 15.8, hemoglobin is 10.6, platelets are 300, sodium is 140 potassium is 4.9, BUN is 39, creatinine is 0.83, AST elevated at 325 although trending down, ALT 91 Active Medications Acetaminophen (Acetaminophen Tab 325 Mg Tab) 650 mg PO Q6HR PRN PRN Reason: Mild Pain or Fever > 100.5 Last Admin: 04/27/21 20:32 Dose: 650 mg Documented by: Ascorbic Acid (Ascorbic Acid 500 Mg Tab) 500 mg PO DAILY [facility] Last Admin: 05/04/21 08:34 Dose: 500 mg Documented by: Benzonatate (Benzonatate 100 Mg Cap) 100 mg PO TID PRN PRN Reason: Cough Last Admin: 04/29/21 16:32 Dose: 100 mg Documented by: Chlorhexidine Gluconate (Chlorhexidine Gluconate 15 Ml Cup) 15 ml MUCOUS MEM BID [facility] Last Admin: 05/04/21 08:34 Dose: 15 ml Documented by: Cholecalciferol (Cholecalciferol 25 Mcg (1000 Iu) Tablet) 25 mcg PO DAILY [facility] Last Admin: 05/04/21 08:34 Dose: 25 mcg Documented by: Dexamethasone Sodium Phosphate (Dexamethasone Sod Phosphate 10 Mg/Ml 1 Ml Vial) 6 mg IVP DAILY [facility] Last Admin: 05/04/21 08:34 Dose: 6 mg Documented by: Famotidine (Famotidine 20 Mg/2 Ml Vial) 20 mg IV Q12HR [facility] Last Admin: 05/04/21 08:35 Dose: 20 mg Documented by: Heparin Sodium (Porcine) (Heparin Sodium 1,000 Un/Ml (10ml Vl)) 0 unit IV PER PROTOCOL PRN; Protocol PRN Reason: Low PTT Last Admin: 05/04/21 05:18 Dose: 1,960 unit Documented by: Sodium Chloride (Saline 0.9%) 1,000 mls @ 40 mls/hr IV .Q24H [facility] Last Admin: 05/03/21 18:57 Dose: 40 mls/hr Documented by: Propofol 1,000 mg/ IV Solution 100 mls @ 0 mls/hr IV .Q0M [facility]; Protocol Last Admin: 05/04/21 11:03 Dose: 40 mcg/kg/min, 18.816 mls/hr Documented by: Fentanyl Citrate 1,000 mcg/ (Sodium Chloride) 100 mls @ 3.856 mls/hr IV .Q24H [facility]; Protocol Last Admin: 05/04/21 10:15 Dose: 1 mcg/kg/hr, 7.711 mls/hr Documented by: Heparin Sodium/Sodium Chloride (25,000 unit/ Sodium Chloride) 250 mls @ 9.408 mls/hr IV .Q24H [facility]; Protocol Last Admin: 05/04/21 06:19 Dose: 16 units/kg/hr, 12.544 mls/hr Documented by: Miscellaneous Information (Potassium Replacement Protocol 1 Each Misc) 1 each MISCELLANE DAILY PRN; Protocol PRN Reason: Per Protocol Naloxone HCl (Naloxone 0.4 Mg/Ml 1 Ml Vial) 0.2 mg IV Q2M PRN PRN Reason: Opioid Reversal Ondansetron HCl (Ondansetron 4 Mg/2 Ml Vial) 4 mg IVP Q8HR PRN PRN Reason: Nausea And Vomiting Zinc Sulfate (Zinc Sulfate 220 Mg Cap) 220 mg PO DAILY [facility] Last Admin: 05/04/21 08:34 Dose: 220 mg Documented by: Physical exam: Patient is on mechanical ventilator and sedated.. HEENT: Normocephalic. Neck is supple. Pupils reactive. Nostrils clear. Oral cavity is moist. Neck reveals no JVD, carotid bruits, or thyromegaly. CHEST EXAMINATION: Trachea is central. Symmetrical expansion. ET tube in place. Bilateral coarse sounds. no wheezing. CARDIAC: Normal S1, S2 with no gallops. No murmurs ABDOMEN: Soft. Bowel sounds normal. No organomegaly. No abdominal bruits. Extremities: reveal no edema. Left lower extremity mottling skin changes. Surgical site bandaged. Neurologically patient is currently on mechanical ventilator. Sedated. Gross No focal deficits noted Skin: No rash or skin lesions. Psychiatric: Could not be assessed this time. Musculoskeletal: No joint swelling or deformity. Assessment: Acute left lower critical limb ischemia with 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 s/p EKOS thrombolysis. Acute hypoxic respiratory failure secondary to COVID-19 infection. Currently on mechanical ventilator. Generalized weakness, nausea and vomiting secondary to COVID-19 infection COVID-19 pneumonia Elevated inflammatory markers Hypovolemic hyponatremia Acute kidney injury likely prerenal. improved. Ongoing nicotine addiction DVT prophylaxis with Lovenox subcu GI prophylaxis Full code Plan: Patient needs to be monitored in the MICU. Initiated thrombolysis due to acute complete occlusion of left temporal artery at its origin..s/p EKOS and underwent fasciotomy and continues to show no improvement and patient is scheduled for possible left below or above the knee amputation once further investigated and surgery. Family is discussing possible comfort care measures and will further decide later today if proceeding with surgery. Patient continues on IV heparin and will continue and hold heparin at midnight if family wants to proceed with surgery. Dr. Feldman vascular surgery following closely. Patient continues to be intubated and sedated and pulmonary power system engineer following closely. Patient will continue with dexamethasone 6 mg IV push daily and multivitamins, zinc, and Heparin IV. Pulmonary and vascular surgery on board.. Continue to follow closely. Prognosis is quite guarded. Objective - Vital Signs Vital signs: Vital Signs Temp 99.2 F 05/04/21 04:00 Pulse 96 05/04/21 07:00 Resp 20 05/04/21 07:00 BP 107/69 05/04/21 07:00 Pulse Ox 96 05/04/21 07:00 Intake & Output 05/03/21 05/04/21 05/04/21 18:59 06:59 18:59 Intake Total 9482.158 7368.571 84 Output Total 495 725 40 Balance 882.182 860.571 44 Weight 78.4 kg Intake: IV 480 480 40 Sodium Chloride 0.9% 1, 480 480 40 000 ml @ 40 mls/hr IV . Q24H [facility] Rx#:[id number] Intake, IV Titration 377.182 487.571 Amount Heparin Sod,Pork in 0.45% 87.991 248.371 NaCl 25,000 unit In 0.45 % NaCl 1 250ml.bag @ 12 UNITS/KG/HR 9.408 mls/hr IV .Q24H [facility] Rx#: [id number] fentaNYL (PF). 1,000 mcg 89.191 100 In Sodium Chloride 0.9% 80 ml @ 0.5 MCG/KG/HR 3. 856 mls/hr IV .Q24H [facility] Rx#:[id number] propofoL 1,000 mg In 200 139.2 Empty Bag 1 bag @ Titrate IV .Q0M [facility] Rx#: [id number] Tube Feeding 430 528 44 Other 90 90 Output: Urine 495 725 40 Other: Voiding Method Indwelling Catheter Indwelling Catheter ABP, PAP, CO, CI - Last Documented Arterial Blood Pressure 82/65 - Labs CBC & Chem 7: 05/04/21 04:38 05/04/21 04:38 Labs: Abnormal Lab Results - Last 24 Hours (Table) 05/04/21 05/04/21 05/04/21 Range/Units 04:38 04:38 04:38 WBC 15.8 H (3.8-10.6) k/uL RBC 3.17 L (4.30-5.90) m/uL Hgb 10.6 L (13.0-17.5) gm/dL Hct 32.2 L (39.0-53.0) % MCV 101.6 H (80.0-100.0) fL Neutrophils # 14.1 H (1.3-7.7) k/uL Lymphocytes # 0.7 L (1.0-4.8) k/uL APTT 37.2 H (22.0-30.0) sec ABG pO2 (83-108) mmHg ABG Total CO2 (19-24) mmol/L Chloride 114 H (98-107) mmol/L Carbon Dioxide 21 L (22-30) mmol/L BUN 39 H (9-20) mg/dL Glucose 145 H (74-99) mg/dL Calcium 7.5 L (8.4-10.2) mg/dL AST 325 H (17-59) U/L ALT 91 H (4-49) U/L Total Protein 6.0 L (6.3-8.2) g/dL Albumin 2.3 L (3.5-5.0) g/dL 05/04/21 Range/Units 05:50 WBC (3.8-10.6) k/uL RBC (4.30-5.90) m/uL Hgb (13.0-17.5) gm/dL Hct (39.0-53.0) % MCV (80.0-100.0) fL Neutrophils # (1.3-7.7) k/uL Lymphocytes # (1.0-4.8) k/uL APTT (22.0-30.0) sec ABG pO2 69 L (83-108) mmHg ABG Total CO2 25 H (19-24) mmol/L Chloride (98-107) mmol/L Carbon Dioxide (22-30) mmol/L BUN (9-20) mg/dL Glucose (74-99) mg/dL Calcium (8.4-10.2) mg/dL AST (17-59) U/L ALT (4-49) U/L Total Protein (6.3-8.2) g/dL Albumin (3.5-5.0) g/dL
--- NOTE | 2021-05-04 13:39 | XR ---
EXAMINATION TYPE: XR chest 1V portable DATE OF EXAM: 05/04/2021 COMPARISON: Chest x-ray 05/03/2021, 05/02/2021 HISTORY: Intubated TECHNIQUE: Single frontal view of the chest is obtained. FINDINGS: Endotracheal tube, NG tube, left ventriculoperitoneal shunt tubing are stable overlying ap propriate position. Cardiac mediastinal silhouette is unchanged. Interstitium is increased, there are overlying artifacts. No evident pneumothorax or pleural effusion. Patchy groundglass density present in the perihilar regions, left lower lung. IMPRESSION: Suspect some improvement in aeration, interstitial edema
[2021-05-04 13:50] VITALS: TEMP 98.2
[2021-05-04] MEDS ORDERED: ATROPINE OPHTH SOLN 1% 5ML BTL SUBLINGUAL PRN (13:51)
[2021-05-04] MEDS ORDERED: MORPHINE SULFATE 2 MG/ML SYRINGE IV PRN (13:51)
[2021-05-04] MEDS ORDERED: SCOPOLAMINE 1.5MG/72HR PATCH TRANSDERM SCH (14:00)
--- NOTE | 2021-05-04 14:01 | P.PN ---
Subjective Progress Note Date: 05/04/21 Principal diagnosis: Acute hypoxic referral failure secondary to COVID-19 pneumonia, acute left lower limb ischemia secondary to thrombosis of the left common femoral, profunda, valdez perficial femoral, popliteal, and tibial arteries. 66-year-old male patient presented to the hospital because of increased cough and shortness of breath in addition to some nausea and emesis. The patient was quite dehydrated. His appetite was poor. He was confirmed having a COVID 19 infection. The patient has been symptomatic over almost 2 weeks. This patient is not vaccinated. No reported fever. He has generalized weakness and myalgias. In the burst department, the patient was afebrile. Pulse ox initially was 85%. Currently he is on oxygen at 4 L per minute nasal cannula. The chest x-ray shows diffuse increased interstitial markings bilaterally consistent with pneumonia. The pulmonary vasculature is quite abundant. The patient also has a right lower lobe pulmonary infiltrate in the past that has improved on this current evaluation. A BUN of 56 with a creatinine of 1.8 con sistent with an acute kidney injury, sodium level was 133, there was evidence of mild transaminitis with an AST of 129, ALT of 62, The patient is seen today 04/28/2021 in follow-up on the regular medical floor. He is currently resting in bed. Laying flat. No worsening shortness of breath, cough or congestion. His requiring 6 L high flow nasal cannula to maintain O2 saturations in the mid 90s. He is afebrile. Hemodynamically stable. White count 6.6. Hemoglobin 14.1. Lymphocytes 0.47. D-dimer 1.36. Sodium 135. Potassium 4.2. Creatinine 1.0. Glucose 170. LDH 546. C-reactive protein 5.3. Pro-calcitonin 0.29. He is continued on Lovenox, Decadron, vitamin supplements. The patient is seen today 04/29/2021 in follow-up on the regular medical floor. He is seen resting comfortably in bed. Awake and alert in no acute distress. He is currently on 7 L high flow nasal cannula to maintain O2 saturations in the low 90s. He's been afebrile. Hemodynamically stable. Chest x-ray reveals diffuse interstitial airspace disease no significant change from previous on 04/27/2021. D-dimer 1.84. Sodium 135. Potassium 3.6. Creatinine 0.7. LDH 46. C-reactive protein 2.20. He is continued on Decadron, Lovenox, vitamin supplements. Reevaluated today on 04/30/21, patient remains in the ICU, patient is on assist control rate of 24, tidal volume is 400 FiO2 on the percent PEEP of 5. ABG showed a pO2 of 59 pCO2 of 35 pH of 7.40. Patient is on propofol at 45, fentanyl at 0.5 mcg/kg/h, heparin 500 units per hour, he is also on TPA via ekos catheter. Early this morning, the patient developed an acute ischemic event involving the left lower extremity and he had complete loss of pulses with cool left lower extremity. Patient was started on heparin drip, he was seen by vas cular surgery, underwent scanning, and he underwent intubation and mechanical ventilation as he was getting extremely agitated. Patient had a mottled left lower extremity, and there was no Doppler signal from the groin to the foot. At any rate the patient was evaluated by vascular and he underwent selective left lower extremity angiogram, placement of thrombolytic catheter and initiation of ekos thrombolysis. Then he was later sent back to the ICU, and seems to be doing relatively well considering the new events. WBC count today is 18.9 hemoglobin 14.7. D-dimer is 1.84 went up to 34. Asymptomatic metabolic profile is normal renal profile is normal LDH is 486 and C-reactive protein is 2.20 chest x-ray showed bilateral infiltrates however right seems to be more involved than left Reevaluated today on 05/01/2021, patient remains in the ICU, intubated, and mechanically ventilated. Patient is now on assist control rate of 24 tidal volume of 400 FiO2 70% PEEP of 14. His ABG showed a pO2 of 53, pCO2 of 40 pH of 7.41. Hence the PEEP was increased to 16. Patient remains on propofol at 55 but grams per kilo per minute, is also on fentanyl at 1.3 mcg/kg per hour. Patient had to go back to the cardiac catheterization lab, and he underwent repositioning of the thrombolytic catheter and restarting thrombolysis again. Patient continues to have extremely mottled left lower extremity from the knee down, the foot is cold, no palpable pulses noted in the feet bilaterally. Even the right foot now seems to be mottled and cold. That is being addressed by vascular surgery on the case. A shunt remains on heparin and he remains on thrombolytics via catheter which was repositioned today. WBC count is 11 hemoglobin 13.6. Electrolytes and renal profile are normal. Liver enzymes are noted to be slightly elevated. AST is 447. Patient remains on the COVID-19 cocktail for his underlying COVID-19 pneumonia. And hypoxic respiratory failure. Remains on Decadron at 60 mg IV push daily. Reevaluated today on 05/02/2021, patient remains intubated mechanically ventilated, he is an assist-control rate of 24. Tidal volume 400 FiO2 50% PEEP of 16 remains on propofol at 40 mcg/kg/m she is also on fentanyl at 20 mcg/kg/h. He is also on enteral feeding using vital AF, he is up to goal. Patient underwent vascular surgery procedure today, he underwent thrombectomy and fasciotomy of the left lower extremity. Continues to have cold feet bilaterally, and hardly any pulses in both of his feet. This is being addressed by vascular surgery, patient is on heparin. His WBC count is 10.1 hemoglobin is 12.8, ABG today showed a pO2 of 70 pCO2 42 pH of 7.40. Electrodes are normal. Renal profile is normal. Reevaluated today on 05/03/2021, patient remains intubated and mechanically ventilated. He is on assist control rate of 24 tidal volume 400 FiO2 50% PEEP remains at 16 and I cut it down to 14 today. ABG today showed a pO2 of 75 pCO2 42 pH of 7.38. His electrolytes are normal bicarb is 22. BUN is 22 creatinine 0.75. Patient is still on propofol at 40 mcg/kg/m, he is still on heparin, and social on fentanyl at 1 mcg/kg/h. IV fluids at 40 mL per hour. WBC count is 13.1 hemoglobin is 12.1. Chest x-ray continues to show bilateral infiltrates. Patient is being followed closely by vascular surgery, and the plan is to consider below-knee amputation on this patient sometime over the weekend. A shunt remains on enteral feeding. Patient is hemodynamically stable in spite of all the issues he has, and he is not requiring any pressors. Reevaluated today on 05/04/21, remains intubated and mechanically ventilated. Patient is on assist control rate of 24 tidal volume 400 FiO2 50% PEEP of 14. ABG showed a pO2 of 69 pCO2 40 pH of 7.39. Patient is on propofol at 40 mcg/kg/m and on fentanyl 1 mcg/kg per hour. IV fluids at 40 mL per hour. His electrolytes are normal renal profile is normal. Patient was supposed to undergo bilateral amputations tomorrow, however I understood that the family is trying to make a decision about possible comfort care on this patient. And I believe considering his overall picture, that's not unreasonable. Chest x-ray is showing improvement in his infiltrates bilaterally. He got is 15.8 hemoglobin 10.6. Electrolytes are normal. Patient remains on heparin. Objective - Vital Signs Vital signs: Vital Signs Temp 98.2 F 05/04/21 12:00 Pulse 108 H 05/04/21 13:00 Resp 24 05/04/21 13:00 BP 105/71 05/04/21 13:00 Pulse Ox 96 05/04/21 13:00 Intake & Output 05/03/21 05/04/21 05/04/21 18:59 06:59 18:59 Intake Total 3026.907 0149.571 852.756 Output Total 495 725 270 Balance 882.182 860.571 582.756 Weight 78.4 kg 78.4 kg Intake: IV 480 480 240 Sodium Chloride 0.9% 1, 480 480 240 000 ml @ 40 mls/hr IV . Q24H [facility] Rx#:[id number] Intake, IV Titration 377.182 487.571 288.756 Amount Heparin Sod,Pork in 0.45% 87.991 248.371 NaCl 25,000 unit In 0.45 % NaCl 1 250ml.bag @ 12 UNITS/KG/HR 9.408 mls/hr IV .Q24H [facility] Rx#: [id number] Sodium Chloride 0.9% 1, 120 000 ml @ 0 mls/hr IV .[facility] Rx#:[id number] fentaNYL (PF). 1,000 mcg 89.191 100 68.756 In Sodium Chloride 0.9% 80 ml @ 0.5 MCG/KG/HR 3. 856 mls/hr IV .Q24H [facility] Rx#:[id number] propofoL 1,000 mg In 200 139.2 100 Empty Bag 1 bag @ Titrate IV .Q0M [facility] Rx#: [id number] Tube Feeding 430 528 264 Other 90 90 60 Output: Urine 495 725 270 Other: Voiding Method Indwelling Catheter Indwelling Catheter Indwelling Catheter ABP, PAP, CO, CI - Last Documented Arterial Blood Pressure 82/65 - Exam General appearance: 66-year-old white male intubated and mechanically ventilated. Head exam: Atraumatic, normocephalic. Eye exam: Blood, EOMI, anicteric, no neck masses, no JVD. ENT exam: Dry mucous membranes. Throat is clear. Neck exam: Supple no neck masses no JVD. Respiratory exam: Symmetrical chest expansion crackles at the bases. Cardiovascular Exam: S1-S2, no S3 gallop. GI/Abdominal exam: Soft nontender no megaly no rebound. Extremities exam: both feet are cold to touch, and mottled, no palpable pulses bilaterally. Surgical dressing noted in the mid calf region on the left lower extremity. Patient had pulses by Doppler in the popliteal area bilaterally. Neurological exam: Could not be assessed, patient is fully sedated, mechanically ventilated. Psychiatric exam: Did not assess. Skin exam: Mottled skin over the dorsal aspect of the right foot and no pulses in the right foot.. - Labs CBC & Chem 7: 05/04/21 04:38 05/04/21 04:38 Labs: Abnormal Lab Results - Last 24 Hours (Table) 05/04/21 05/04/21 05/04/21 Range/Units 04:38 04:38 04:38 WBC 15.8 H (3.8-10.6) k/uL RBC 3.17 L (4.30-5.90) m/uL Hgb 10.6 L (13.0-17.5) gm/dL Hct 32.2 L (39.0-53.0) % MCV 101.6 H (80.0-100.0) fL Neutrophils # 14.1 H (1.3-7.7) k/uL Lymphocytes # 0.7 L (1.0-4.8) k/uL APTT 37.2 H (22.0-30.0) sec ABG pO2 (83-108) mmHg ABG Total CO2 (19-24) mmol/L Chloride 114 H (98-107) mmol/L Carbon Dioxide 21 L (22-30) mmol/L BUN 39 H (9-20) mg/dL Glucose 145 H (74-99) mg/dL Calcium 7.5 L (8.4-10.2) mg/dL AST 325 H (17-59) U/L ALT 91 H (4-49) U/L Total Protein 6.0 L (6.3-8.2) g/dL Albumin 2.3 L (3.5-5.0) g/dL 05/04/21 Range/Units 05:50 WBC (3.8-10.6) k/uL RBC (4.30-5.90) m/uL Hgb (13.0-17.5) gm/dL Hct (39.0-53.0) % MCV (80.0-100.0) fL Neutrophils # (1.3-7.7) k/uL Lymphocytes # (1.0-4.8) k/uL APTT (22.0-30.0) sec ABG pO2 69 L (83-108) mmHg ABG Total CO2 25 H (19-24) mmol/L Chloride (98-107) mmol/L Carbon Dioxide (22-30) mmol/L BUN (9-20) mg/dL Glucose (74-99) mg/dL Calcium (8.4-10.2) mg/dL AST (17-59) U/L ALT (4-49) U/L Total Protein (6.3-8.2) g/dL Albumin (3.5-5.0) g/dL Assessment and Plan Assessment: Pression: Acute hypoxic respiratory failure secondary to acute COVID-19 pneumonia, outside the window for remdesivir Acute left lower extremity ischemia with arterial thrombosis as noted above. Requiring surgical intervention by vascular surgery, remains presently on heparin Acute kidney injury, improving this is secondary to COVID-19 infection. Bilateral lower extremities ischemia, being addressed by vascular surgery on the case. Recommendation: Continue ventilatory support, not ready for any weaning Continue fentanyl, heparin, and propofol. Continue Decadron. Patient is out of the window for remdesivir , not a candidate for baricitinib 'as per pharmacy. Remains critically ill. I agree with comfort care measures on this patient. Prognosis is extremely poor not to mention the patient was already scheduled for bilateral below-knee amputation. critical care time is over 30 minutes Time with Patient: Greater than 30
[2021-05-04] MEDS: MORPHINE SULFATE (100 MG/2 ML) 100 MG in SODIUM CHLORIDE 0.9% 100 ML IV SCH ×2 (14:43→17:32)
[2021-05-04] MEDS: MORPHINE SULFATE 4 MG/ML SYRINGE IV PRN ×2 (14:44→17:15)
[2021-05-04 17:20] VITALS: BP 113/76; PULSE 176; RESP 22
--- NOTE | 2021-05-04 21:54 | P.DS ---
Providers Date of admission: 04/27/21 15:44 Attending physician: Marianna Dimas Consults: 04/27/21 15:45 Consult Physician Routine Consulting Provider: Rusty Gardner Consult Reason/Comments: COVID Do you want consulting provider notified?: Yes 04/30/21 02:55 Consult Physician Stat Consulting Provider: Dayron Hernandez Reason/Comments: LLE acute arterial occlusion Do you want consulting provider notified?: Yes Primary care physician: Frankie Izaguirre [facility] Hospital Course: After rounding the morning, family decided to make the patient comfort care, he was extubated and placed on comfort care measures, patient eventually tonight at 18:00 please refer to nursing note for more details Please refer to progress note from today for more details Patient Condition at Discharge: Stable Plan - Discharge Summary Discharge Rx Participant: Yes New Discharge Prescriptions: No Action No Known Home Medications Discharge Medication List No Known Home Medications 04/27/21 [History] Follow up Appointment(s)/Referral(s): Dmitriy David MD [Primary Care Provider] - 1-2 days Discharge Disposition: - Preliminary Cause of Preliminary Cause of : covid pna
== END 2021-05-04 18:58 | disposition expired | DRG 166 ==
LOC: EC 12:31 → 4SSUR 15:44 → 2SICU 04-30 04:04
PROVIDERS: ADMIT Internal Medicine; ATTEND Internal Medicine
PROC: 3E0333Z Introduction of Anti-inflammatory into Peripheral Vein, Percutaneous Approach (ICD-10-PCS; 2021-04-27)
PROC: 5A0935A Assistance with Respiratory Ventilation, Less than 24 Consecutive Hours, High Flow/Velocity Cannula (ICD-10-PCS; 2021-04-29)
PROC: 04FN3Z0 Fragmentation of Left Popliteal Artery, Percutaneous Approach, Ultrasonic (ICD-10-PCS; 2021-04-30)
PROC: B41G1ZZ Fluoroscopy of Left Lower Extremity Arteries using Low Osmolar Contrast (ICD-10-PCS; 2021-04-30)
PROC: 3E03317 Introduction of Other Thrombolytic into Peripheral Vein, Percutaneous Approach (ICD-10-PCS; 2021-04-30)
PROC: B41G1ZZ Fluoroscopy of Left Lower Extremity Arteries using Low Osmolar Contrast (ICD-10-PCS; 2021-04-30)
PROC: 5A1955Z Respiratory Ventilation, Greater than 96 Consecutive Hours (ICD-10-PCS; 2021-04-30)
PROC: 0BH17EZ Insertion of Endotracheal Airway into Trachea, Via Natural or Artificial Opening (ICD-10-PCS; 2021-04-30)
PROC: 04F Lower Arteries, Fragmentation (ICD-10-PCS; 2021-05-01)
PROC: 04CQ3ZZ Extirpation of Matter from Left Anterior Tibial Artery, Percutaneous Approach (ICD-10-PCS; 2021-05-02)
PROC: 04CL3ZZ Extirpation of Matter from Left Femoral Artery, Percutaneous Approach (ICD-10-PCS; 2021-05-02)
PROC: 04CN3ZZ Extirpation of Matter from Left Popliteal Artery, Percutaneous Approach (ICD-10-PCS; 2021-05-02)
PROC: 0KNT0ZZ Release Left Lower Leg Muscle, Open Approach (ICD-10-PCS; 2021-05-02)
PROC: B41G1ZZ Fluoroscopy of Left Lower Extremity Arteries using Low Osmolar Contrast (ICD-10-PCS; 2021-05-02)
PROC: 047L3ZZ Dilation of Left Femoral Artery, Percutaneous Approach (ICD-10-PCS; principal; 2021-05-02 07:00)
DX: U07.1 COVID-19 (principal); J12.82 Pneumonia due to coronavirus disease 2019; J96.01 Acute respiratory failure with hypoxia; E87.1 Hypo-osmolality and hyponatremia; J81.1 Chronic pulmonary edema; N17.9 Acute kidney failure, unspecified; I74.3 Embolism and thrombosis of arteries of the lower extremities; E86.0 Dehydration; E86.1 Hypovolemia; F17.200 Nicotine dependence, unspecified, uncomplicated; K59.00 Constipation, unspecified; Z51.5 Encounter for palliative care; Z66 Do not resuscitate; I70.223 Atherosclerosis of native arteries of extremities with rest pain, bilateral legs; R00.0 Tachycardia, unspecified; R74.01 Elevation of levels of liver transaminase levels
CPT/HCPCS: 36415; 36600; 37184; 37211; 37213; 37214; 37224; 71045; 75635; 80048; 80053; 82805; 83605; 83615; 83880; 84145; 84484; 85025; 85379; 85384; 85610; 85730; 86140; 87070; 87086; 87205; 87635; 93005; 94002; 94003; 94760; 96361; 96374; 96375; 99285